=== PATIENT | female | born 1970 | race Caucasian/White ===

== ENCOUNTER → 2016-09-10 | Outpatient (CLI) | payer BC ==
--- NOTE | 2016-09-10 13:34 | ECHOF ---
Referral Reason:R07.89 Atypical chest pain MEASUREMENTS -------- HEIGHT: 157.5 cm WEIGHT: 63.5 kg BP: 128/78 RVIDd: 3.0 cm (< 3.3) IVSd: 1.0 cm (0.6 - 1.1) LVIDd: 4.0 cm (3.9 - 5.3) LVPWd: 1.0 cm (0.6 - 1.1) IVSs: 1.5 cm LVIDs: 2.8 cm LVPWs: 1.3 cm LAESV Index (A-L): 16.56 ml/m Ao Diam: 2.7 cm (2.0 - 3.7) AV Cusp: 1.5 cm (1.5 - 2.6) LA Diam: 2.3 cm (2.7 - 3.8) MV EXCURSION: 12.364 mm (> 18.000) MV EF SLOPE: 102 mm/s (70 - 150) EPSS: 0.5 cm MV E Leon: 0.61 m/s MV DecT: 150 ms MV A Leon: 0.67 m/s MV E/A Ratio: 0.90 RAP: 5.00 mmHg RVSP: 9.49 mmHg FINDINGS -------- Sinus rhythm. This was a technically adequate study. Left ventricular wall thickness is normal. Overall left ventricular systolic function is normal with, an EF between 55 - 60 %. The right ventricle is normal in size and function. Normal LA size by volume 22+/-6 ml/m2. The right atrium is normal in size. The aortic valve is trileaflet, and appears structurally normal. No aortic stenosis or regurgitation. The mitral valve leaflets are mildly thickened. There is trace mitral regurgitation. Trace tricuspid regurgitation present. There is no evidence of pulmonary hypertension. The right ventricular systolic pressure, as measured by Doppler, is 9.49mmHg. The pulmonic valve is normal. The aortic root size is normal. There is no pericardial effusion. CONCLUSIONS -------- 1. Sinus rhythm. 2. Overall left ventricular systolic function is normal with, an EF between 55 - 60 %. 3. The mitral valve leaflets are mildly thickened. 4. There is trace mitral regurgitation. 5. Trace tricuspid regurgitation present. 6. There is no evidence of pulmonary hypertension. 7. The right ventricular systolic pressure, as measured by Doppler, is 9.49mmHg. 8. The aortic root size is normal. 9. There is no pericardial effusion. KITCHEN OPERATOR: Jessie Nielsen RDCS
== END | disposition home or self-care (01) ==
LOC: RADECHMAIN 11:33
PROVIDERS: ATTEND Internal Medicine
DX: I08.1 Rheumatic disorders of both mitral and tricuspid valves (principal)
CPT/HCPCS: 93306

== ENCOUNTER 2016-12-30 17:04 | Emergency (ER) | payer BC ==
--- NOTE | 2016-12-30 18:59 | ED ---
General Adult HPI - General Chief complaint: Extremity Injury, Lower Stated complaint: Poss blood clot in calf Time Seen by Provider: 12/30/16 18:41 Source: patient, RN notes reviewed Mode of arrival: ambulatory Limitations: no limitations - History of Present Illness Initial comments: Patient 46-year-old female who presents emergency room status post left knee surgery 2 weeks, who presents emergency room today with a chief complaint of left calf pain. Does not that she was at physical therapy and advised come here to the emergency room to rule out DVT. Patient does not that it's been sore over the last few days. States worse with palpation. She denies any other complaints associated symptoms. Denies any history of DVT. States she has been taking daily aspirin. Patient denies any recent fever, chills, shortness of breath, chest pain, back pain, abdominal pain, nausea or vomiting, numbness or tingling, dysuria or hematuria, constipation or diarrhea, headaches or visual changes, or any other complaints. - Related Data Home Medications Medication Instructions Recorded Confirmed Aspirin EC [Ecotrin Low Dose] 81 mg PO DAILY 12/30/16 12/30/16 Dextroamphetamine/Amphetamine 15 mg PO QAM 12/30/16 12/30/16 [Adderall] Ibuprofen [Motrin] 800 mg PO BID PRN 12/30/16 12/30/16 Levothyroxine Sodium [Synthroid] 50 mcg PO DAILY 12/30/16 12/30/16 Pantoprazole Sodium [Protonix] 40 mg PO DAILY 12/30/16 12/30/16 Allergies Allergy/AdvReac Type Severity Reaction Status Date / Time Iodinated Contrast- Oral and Allergy Anaphylaxis Verified 12/30/16 17:17 IV Dye [Iodinated Contrast Media - IV Dye] shellfish derived [Shellfish] Allergy Anaphylaxis Verified 12/30/16 19:25 steroids AdvReac Rapid Uncoded 12/30/16 19:25 Heart Rate Review of Systems ROS Statement: Those systems with pertinent positive or pertinent negative responses have been documented in the HPI. ROS Other: All systems not noted in ROS Statement are negative. Past Medical History Additional Past Medical History / Comment(s): lupus History of Any Multi-Drug Resistant Organisms: None Reported Past Surgical History: Cholecystectomy, Orthopedic Surgery Past Psychological History: No Psychological Hx Reported Smoking Status: Current every day smoker Past Alcohol Use History: None Reported Past Drug Use History: None Reported General Exam - General Exam Comments Initial Comments: General: The patient is awake and alert, in no distress, and does not appear acutely ill. Neck: The neck is supple, there is no tenderness or JVD. Cardiovascular: There is a regular rate and rhythm. No murmur, rub or gallop is appreciated. Respiratory: Lungs are clear to auscultation, respirations are non-labored, breath sounds are equal. No wheezes, stridor, rales, or rhonchi. Musculoskeletal: Patient has normal appearance of the left leg no signs of swelling bruising or redness. Pulses equal bilaterally 2+. Mild tenderness with a Homans test. Sensations intact. Strength 5/5. Neurological: A&O x 3. CN II-XII intact, There are no obvious motor or sensory deficits. Coordination appears grossly intact. Speech is normal. Skin: Skin is warm and dry and no rashes or lesions are noted. Psychiatric: Normal mood and affect. Limitations: no limitations Course Vital Signs 12/30/16 17:15 Temperature 98.2 F Pulse Rate 88 Respiratory 18 Rate Blood Pressure 125/74 O2 Sat by Pulse 98 Oximetry Medical Decision Making - Medical Decision Making Patient is also negative for any evidence of DVT. Patient will be discharged home advise follow family doctor. Advised return if any other symptoms Disposition Clinical Impression: Leg pain Disposition: HOME SELF-CARE Condition: Good Instructions: Leg Cramps (ED) Additional Instructions: Please use medication as discussed. Please follow-up with family doctor in the next 2 days of symptoms have not improved. Please return to emergency room if the symptoms increase or worsen or for any other concerns. Referrals: Paolo Garcia MD [Primary Care Provider] - 1-2 days Time of Disposition: 20:16
--- NOTE | 2016-12-30 20:00 | US ---
EXAMINATION TYPE: US venous doppler duplex LE LT DATE OF EXAM: 12/30/2016 6:55 PM COMPARISON: NONE CLINICAL HISTORY: Pain. Left calf pain SIDE PERFORMED: Left TECHNIQUE: The lower extremity deep venous system is examined utilizing real time linear array sonog aashish with graded compression, doppler sonography and color-flow sonography. VESSELS IMAGED: External Iliac Vein (EIV) Common Femoral Vein Deep Femoral Vein Greater Saphenous Vein * Femoral Vein Popliteal Vein Small Saphenous Vein * Proximal Calf Veins (* superficial vessels) Left Leg: Negative for DVT No evidence of DVT left leg IMPRESSION: No evidence of deep venous thrombosis in the left leg.
[2016-12-30 20:38] VITALS: BP 144/87; PULSE 107; RESP 17; TEMP 97
== END 2016-12-30 20:33 | disposition home or self-care (01) ==
LOC: EC 17:04
DX: M79.605 Pain in left leg (principal); Z79.899 Other long term (current) drug therapy; Z98.890 Other specified postprocedural states; Z79.82 Long term (current) use of aspirin; Z88.8 Allergy status to other drugs, medicaments and biological substances; Z91.041 Radiographic dye allergy status; Z91.013 Allergy to seafood; F17.200 Nicotine dependence, unspecified, uncomplicated
CPT/HCPCS: 99283

== ENCOUNTER → 2017-08-24 | Outpatient (CLI) | payer BC ==
[2017-08-24 13:03] LABS: Basophils # (A) 0.1 k/uL (0-0.2); Basophils % (A) 1 %; Eosinophils # (A) 0.3 k/uL (0-0.7); Eosinophils % (A) 3 %; HCT 40.8 % (34.0-46.0); HGB 13.7 gm/dL (11.4-16.0); Lymphocytes # (A) 2.4 k/uL (1.0-4.8); Lymphocytes % (A) 25 %; MCH 30.3 pg (25.0-35.0); MCHC 33.5 g/dL (31.0-37.0); MCV 90.2 fL (80.0-100.0); Mean Platelet Volume 6.1; Monocytes # (A) 0.6 k/uL (0-1.0); Monocytes % (A) 6 %; Neutrophils # (A) 5.9 k/uL (1.3-7.7); Neutrophils % (A) 63 %; Platelet Count 443 k/uL (150-450); RBC 4.52 m/uL (3.80-5.40); WBC 9.4 k/uL (3.8-10.6)
[2017-08-24 13:29] LABS: ALT 25 U/L (9-52); AST 18 U/L (14-36); Albumin 4.1 g/dL (3.5-5.0); Alkaline Phosphatase 64 U/L (38-126); Anion Gap 11 mmol/L; Blood Urea Nitrogen 14 mg/dL (7-17); C Reactive Protein <5.0 mg/L (<10.0); Calcium 9.6 mg/dL (8.4-10.2); Carbon Dioxide 27 mmol/L (22-30); Chloride 104 mmol/L (98-107); Cholesterol 197 mg/dL (<200); Glucose 88 mg/dL (74-99); HDL Cholesterol 65 mg/dL (40-60); LDL Cholesterol,Calculated 118 mg/dL (0-99); Potassium 4.9 mmol/L (3.5-5.1); Sodium 142 mmol/L (137-145); Total Bilirubin 0.7 mg/dL (0.2-1.3); Total Protein 6.6 g/dL (6.3-8.2); Triglycerides 72 mg/dL (<150)
[2017-08-24 13:42] LABS: T4, Free (Free Thyroxine) 1.05 ng/dL (0.78-2.19)
[2017-08-24 13:59] LABS: Erythrocyte Sedimentation Rate 9 mm/hr (0-20)
[2017-08-24 20:06] LABS: Cyclic Citrullinated Pep IgG NEGATIVE (NEGATIVE)
[2017-08-25 11:05] LABS: ANA Pattern Speckled; ANA Pattern 2 Nucleolar
== END | disposition home or self-care (01) ==
LOC: LABWHC1 12:25
PROVIDERS: ATTEND Internal Medicine
DX: E03.9 Hypothyroidism, unspecified (principal); F90.9 Attention-deficit hyperactivity disorder, unspecified type; M12.9 Arthropathy, unspecified; Z13.6 Encounter for screening for cardiovascular disorders
CPT/HCPCS: 36415; 80053; 80061; 84439; 84443; 84481; 85025; 85652; 86038; 86039; 86140; 86200

== ENCOUNTER → 2018-01-28 | Outpatient (CLI) | payer BC ==
--- NOTE | 2018-01-29 05:49 | CT ---
EXAMINATION TYPE: CT brain wo con DATE OF EXAM: 01/28/2018 COMPARISON: 05/19/2013 HISTORY: Headache x1 week. CT DLP: 944.5 mGycm. Automated Exposure Control for Dose Reduction was Utilized. TECHNIQUE: CT scan of the head is performed without contrast. FINDINGS: Ventricles and sulci appear normal. There is no mass effect nor midline shift. There is no sign of intracranial hemorrhage. There is no evidence of cerebral edema. Calvarium is intact. IMPRESSION: Normal CT scan of the brain. No change.
== END | disposition home or self-care (01) ==
LOC: RADCTMAIN 17:46
PROVIDERS: ATTEND Internal Medicine
DX: R51 Headache (principal)
CPT/HCPCS: 70450

== ENCOUNTER → 2018-06-10 | Outpatient (CLI) | payer BC ==
--- NOTE | 2018-06-11 08:50 | MM ---
Reason for exam: screening (asymptomatic). Baseline mammogram. History: Patient is nulliparous. Physical Findings: Nurse did not find any significant physical abnormalities on exam. MG 3D Screening Mammo W/Cad Bilateral CC and MLO view(s) were taken. The breast tissue is heterogeneously dense. This may lower the sensitivity of mammography. There is no discrete abnormality. These results were verbally communicated with the patient and result sheet given to the patient on 06/10/18. ASSESSMENT: Negative, BI-RAD 1 RECOMMENDATION: Routine screening mammogram of both breasts in 1 year.
== END | disposition home or self-care (01) ==
LOC: RADMAMWWP 15:38
PROVIDERS: ATTEND Family Medicine
DX: Z12.31 Encounter for screening mammogram for malignant neoplasm of breast (principal)
CPT/HCPCS: 77063; 77067

== ENCOUNTER → 2019-06-15 | Outpatient (CLI) | payer OTHER ==
[2019-06-15 15:42] LABS: Basophils # (A) 0.1 k/uL (0-0.2); Basophils % (A) 1 %; Eosinophils # (A) 0.5 k/uL (0-0.7); Eosinophils % (A) 5 %; HCT 39.8 % (34.0-46.0); HGB 13.4 gm/dL (11.4-16.0); Lymphocytes # (A) 3.6 k/uL (1.0-4.8); Lymphocytes % (A) 37 %; MCHC 33.6 g/dL (31.0-37.0); MCV 92.2 fL (80.0-100.0); Mean Platelet Volume 6.5; Monocytes # (A) 0.7 k/uL (0-1.0); Monocytes % (A) 8 %; Neutrophils # (A) 4.6 k/uL (1.3-7.7); Neutrophils % (A) 47 %; Platelet Count 430 k/uL (150-450); RBC 4.32 m/uL (3.80-5.40); RDW 13.2 % (11.5-15.5); WBC 9.8 k/uL (3.8-10.6)
[2019-06-15 15:50] LABS: Potassium 4.2 mmol/L (3.5-5.1)
== END | disposition home or self-care (01) ==
LOC: LABWHC1 15:00
PROVIDERS: ATTEND Orthopaedic Surgery
DX: Z01.812 Encounter for preprocedural laboratory examination (principal); M23.92 Unspecified internal derangement of left knee
CPT/HCPCS: 36415; 80051; 85025

== ENCOUNTER → 2019-06-21 | Outpatient (CLI) | payer OTHER ==
--- NOTE | 2019-06-21 14:26 | MR ---
EXAMINATION TYPE: MR brain and iac wo/w con DATE OF EXAM: 06/21/2019 COMPARISON: Correlation CT 01/28/2018 HISTORY: 48-year-old female Dizziness and giddiness. Technologist reports left ear issues. TECHNIQUE: Multiplanar, multisequence images of the brain and brainstem were acquired before and aft er administration of 6 mL IV Gadavist. Diffusion weighted imaging was performed. Additional coned-d own sequences through the internal auditory canals and posterior cranial fossa before and after IV co ntrast administration. FINDINGS: Diffusion weighted images demonstrate no evidence of an acute ischemic lesion in the brain. T2/FLAIR weighted sequences show minimal scattered burden of bright white matter change with approxim ately 5 punctate foci in the subcortical region of each side. 1.2 x 1.0 x 0.7 cm cyst of the medial gland. Otherwise, midline structures demonstrate normal morphol ogy. The craniocervical junction is normal. Brain volume is age appropriate. The ventricles are of normal caliber. There is no evidence of an acute intracranial hemorrhage, infarct, mass, mass-effect or an extra-axia l fluid collection. There is no cerebellopontine angle mass. The internal auditory canals are symmetric. Brainstem and skull base abnormalities are not seen. Post contrast images demonstrate no evidence of pathologic enhancement in the posterior cranial [place] a or the internal auditory canals. Dural venous sinuses are patent. Prominent arachnoid granulation r ight transverse sinus. There is no abnormal enhancement of the labyrinths. Trace mucosal thickening ethmoid air cells. Globes are intact. Nonenhancing 7 mm cyst along the left adenoid soft tissues, likely mucosal retention cyst. IMPRESSION: 1. No acute intracranial abnormality seen. Scattered foci of punctate bright white matter change with minimal overall burden is nonspecific and could relate to very early changes of chronic small vessel ischemic disease. Chronic migraines are also consideration. Demyelinating disease considered less li saqib given the overall appearance. 2. Unremarkable acoustic MRI. 3. 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
== END | disposition home or self-care (01) ==
LOC: RADMRIMAIN 11:48
PROVIDERS: ATTEND Internal Medicine
DX: R90.89 Other abnormal findings on diagnostic imaging of central nervous system (principal)
CPT/HCPCS: 70553; A9585

== ENCOUNTER 2019-06-23 09:16 | Day surgery (SDC) | payer OTHER ==
[2019-06-21 10:07] VITALS: BMI 23.8
--- NOTE | 2019-06-22 14:13 | HP ---
HISTORY AND PHYSICAL DATE OF SURGERY: 06/23/2027 Padmini Noble is a 48-year-old patient seen with progressive left knee pain. We discussed options for treatment. She elected to proceed with arthroscopy. Consent was obtained. PAST MEDICAL HISTORY: Hypothyroidism. PAST SURGICAL HISTORY: Cholecystectomy, left knee arthroscopy. MEDICATIONS: Protonix, levothyroxine. ALLERGIES: Are IV DYE and STEROIDS. SOCIAL HISTORY: Smokes 1 pack of cigarettes daily. PHYSICAL EVALUATION OF THE LEFT KNEE: Range of motion is 0-130. Tenderness along the medial and lateral joint lines. Positive medial Milind's. Positive lateral Milind's. Ligaments are stable. Hip rotation is without pain. Distal neurovascular exam is intact. RADIOGRAPHS OF THE LEFT KNEE: Revealed moderate medial and lateral compartment osteoarthritis. IMPRESSION: 1. Internal derangement, left knee with meniscal tear. 2. Left knee osteoarthritis. 3. Hypothyroidism. PLAN: Left knee arthroscopy with partial meniscectomy, partial synovectomy and debridement. MMODL / IJN: [id number] /
[~2019-06-23 09:16] MED LIST: DEXAMETHASONE SOD PHOSPHATE 10 MG/ML 1 ML VIAL IV ONE; LACTATED RINGERS 1,000 ML IV SCH; LIDOCAINE 1% 20 ML VIAL (10MG/ML) FOR IV START INTRADERMA PRN; MIDAZOLAM 2 MG/2 ML VIAL IV PRN; fentaNYL (PF) 50 MCG/ML 2 ML AMP IV PRN
[2019-06-23 09:42] VITALS: TEMP 98.3
[2019-06-23] MEDS ORDERED: ONDANSETRON 4 MG/2 ML VIAL IVP ONE (09:45)
[2019-06-23] MEDS ORDERED: SCOPOLAMINE 1.5MG/72HR PATCH TRANSDERM ONE (09:46)
[2019-06-23] MEDS ORDERED: LIDOCAINE 1% INJ 10MG/ML (20 ML MDV) ONE (10:39)
[2019-06-23] MEDS ORDERED: PROPOFOL 10 MG/ML 20 ML VIAL IV ONE (10:39)
[2019-06-23] MEDS ORDERED: fentaNYL (PF) 50 MCG/ML 2 ML AMP ONE (10:39)
[2019-06-23] MEDS ORDERED: MIDAZOLAM 2 MG/2 ML VIAL ONE (10:39)
[2019-06-23] MEDS ORDERED: KETOROLAC 30 MG/ML 1 ML VIAL ONE (10:39)
[2019-06-23] MEDS ORDERED: BUPIVACAINE (PF) 0.25% 30 ML VIAL SQ ONE (11:06)
[2019-06-23] MEDS ORDERED: LACTATED RINGERS 1,000 ML IV ONE ×5 (11:23→12:00)
--- NOTE | 2019-06-23 11:27 | P.OP ---
Date of Procedure: 06/23/19 Preoperative Diagnosis: Internal derangement left knee Postoperative Diagnosis: 1. Tear lateral meniscus left knee 2. Grade 2/3 chondromalacia medial femoral condyle left knee 3. Reactive synovitis medial, lateral and suprapatellar compartments left knee Procedure(s) Performed: 1. Arthroscopic partial lateral meniscectomy left knee 2. Arthroscopic chondroplasty medial femoral condyle left knee 3. Arthroscopic partial synovectomy medial, lateral and suprapatellar compartments left knee Anesthesia: JUNAIDA, local Surgeon: Jerrod Jarivs Estimated Blood Loss (ml): 5 Pathology: none sent Condition: stable Disposition: PACU Indications for Procedure: 48-year-old patient seen with progressive left knee pain. After having treatment options discussed, she elected to proceed with arthroscopy. Operative Findings: See description of procedure Description of Procedure: Patient was taken to the operative suite. Patient underwent a general anesthetic by the department of anesthesia. Patient was given preoperative ant ibiotics. The left lower extremity was placed in a well-padded arthroscopic leg lazar. The left leg was prepped and draped in the normal sterile orthopedic fashion. A lateral parapatellar and suprapatellar incision was made. Trochars were inserted. Arthroscopy was initiated. Suprapatellar pouch revealed diffuse thick reactive synovitis. The patellofemoral joint appeared to articulate congr uently. There as grade 1 chondromalacia along the central area of the patella with no significant osteochondral tears present. The scope was guided into the medial gutter. There were no loose bodies. There was no plica. The scope was then guided into the medial compartment. A medial parapatellar incision was made. Trocar inserted followed by probe. There was some mild fraying posterior medial meniscus. There was an area of grade 2/3 chondromalacia medial femoral condyle with diffuse osteochondral flap tears present. There was thick reactive synovitis anteriorly. I performed a chondroplasty of the medial femoral condyle down to stable tissue. I debrided that mild air fraying posterior medial meniscus. I performed a partial synovectomy decompressing reactive synovitis. The residual osteochondral surface of the medial femoral condyle was stable. There was good decompression of the synovitis. Scope and probe were then guided into the intercondylar notch. Cruciates were identified, probed and found to be stable. The scope and probe were then guided into lateral compartment. There was a complex tear involving the anterior horn of the lateral meniscus which is eccentric to the midbody area. There was thick reactive synovitis anteriorly. There were grade 1 chondromalacia changes lateral compartment. I performed a partial lateral meniscectomy getting down to stable meniscal tissue. I performed a partial synovectomy decompressing reactive synovitis. The residual meniscus was probed and found to be stable. There was good decompression of the synovitis. The scope was in guided back into the suprapatellar compartment. I introduced a motorized shaver into the suprapatellar compartment. I performed a partial synovectomy. Shaver was removed. I took one more look on the entire knee, no residual debris. Instruments were now removed from the joint. The joint was infiltrated with .25% Marcaine. Steri-Strips were applied to the portal sites. Sterile dressings were applied. The patient was placed into a GABBIE hose. No tourniquet was utilized. The patient was awakened, transferred to a bed and taken to recovery stable satisfactory condition.
[2019-06-23] MEDS: HYDROmorphone 1 MG/ML 1 ML SYRINGE IVP ONE ×2 (11:30→11:42)
[2019-06-23] MEDS ORDERED: ALBUTEROL NEBULIZED 2.5 MG/3 ML INHALATION ONE (12:42)
[2019-06-23 13:10] VITALS: RESP 18
[2019-06-23] MEDS ORDERED: diphenhydrAMINE 50 MG/ML 1 ML VIAL IVP PRN (13:27)
[2019-06-23] MEDS ORDERED: HYDROcodone/APAP 5-325MG 1 EACH TAB PO ONE (13:37)
[2019-06-23 14:57] VITALS: BP 98/64; PULSE 60
== END 2019-06-23 15:01 | disposition home or self-care (01) ==
LOC: OR 09:16
PROVIDERS: ATTEND Orthopaedic Surgery
DX: S83.272A Complex tear of lateral meniscus, current injury, left knee, initial encounter (principal); M94.262 Chondromalacia, left knee; M65.9 Synovitis and tenosynovitis, unspecified; M17.12 Unilateral primary osteoarthritis, left knee; F17.210 Nicotine dependence, cigarettes, uncomplicated; E03.9 Hypothyroidism, unspecified; K21.9 Gastro-esophageal reflux disease without esophagitis; Z90.49 Acquired absence of other specified parts of digestive tract; Z98.890 Other specified postprocedural states; Z79.890 Hormone replacement therapy; Z79.899 Other long term (current) drug therapy; Z91.041 Radiographic dye allergy status; Z88.8 Allergy status to other drugs, medicaments and biological substances; Z91.013 Allergy to seafood; Z79.1 Long term (current) use of non-steroidal anti-inflammatories (NSAID); X58.XXXA Exposure to other specified factors, initial encounter
CPT/HCPCS: 93005; 81025; 29881; J2250; J1200; J1100; J2405; J0690; J2001; J3010; J1885; J1170; J2704

== ENCOUNTER → 2019-10-25 | Outpatient (CLI) | payer OTHER ==
[2019-10-25 19:57] LABS: Estradiol 138.8 pg/mL; Follicle Stimulating Hormone 2.7 mIU/mL; Luteinizing Hormone 1.6 mIU/mL
[2019-10-25 20:14] LABS: Folate, Serum 14.7 ng/mL
[2019-10-25 21:06] LABS: Progesterone 4.9 ng/mL
[2019-10-25 21:48] LABS: Rheumatoid Factor, Qnt 5 IU/mL (0-15)
[2019-10-25 22:13] LABS: Anti-DNA, DS unit <1.0 IU/mL; DNA Double-Stranded NEGATIVE (NEGATIVE)
[2019-10-26 11:54] LABS: ANA Pattern Speckled
== END | disposition home or self-care (01) ==
LOC: LABWHC1 12:41
PROVIDERS: ATTEND Psychiatry & Neurology Neurology
DX: R79.89 Other specified abnormal findings of blood chemistry (principal); R26.81 Unsteadiness on feet
CPT/HCPCS: 36415; 82607; 82670; 82746; 83001; 83002; 84144; 84403; 84443; 86038; 86039; 86225; 86431; 86618

== ENCOUNTER → 2019-11-02 | Outpatient (CLI) | payer OTHER ==
--- NOTE | 2019-11-03 02:58 | MR ---
EXAMINATION TYPE: MR knee RT wo con DATE OF EXAM: 11/02/2019 COMPARISON: None HISTORY: Right Knee Pain, Trhu entire knee. Chronic Multiplanar multiecho imaging of the right knee was performed without contrast. FINDINGS: The anterior and posterior cruciate ligaments are intact. There is small area of increased signal on the inferior surface of the anterior horn of the lateral meniscus. The other menisci appear fairly no rmal. Patella is intact. The collateral ligaments are intact. I see no bony destructive process. Join t spaces are fairly normal. There is no evidence of joint effusion. IMPRESSION: Small tear of the anterior horn of the lateral meniscus. No evidence of ligamentous tear. No signific ant joint fluid.
== END | disposition home or self-care (01) ==
LOC: RADMRIMAIN 16:28
PROVIDERS: ATTEND Orthopaedic Surgery
DX: S83.281A Other tear of lateral meniscus, current injury, right knee, initial encounter (principal)

== ENCOUNTER → 2019-12-05 | Outpatient (CLI) | payer OTHER ==
[2019-12-05 14:53] LABS: Potassium 4.6 mmol/L (3.5-5.1)
[2019-12-05 14:55] LABS: Basophils # (A) 0.1 k/uL (0-0.2); Basophils % (A) 1 %; Eosinophils # (A) 0.4 k/uL (0-0.7); Eosinophils % (A) 4 %; HCT 41.9 % (34.0-46.0); HGB 13.5 gm/dL (11.4-16.0); Lymphocytes # (A) 2.5 k/uL (1.0-4.8); Lymphocytes % (A) 25 %; MCH 30.2 pg (25.0-35.0); MCHC 32.2 g/dL (31.0-37.0); MCV 93.8 fL (80.0-100.0); Mean Platelet Volume 6.6; Monocytes # (A) 0.8 k/uL (0-1.0); Monocytes % (A) 8 %; Neutrophils % (A) 61 %; Platelet Count 420 k/uL (150-450); RBC 4.47 m/uL (3.80-5.40); WBC 9.9 k/uL (3.8-10.6)
== END ==
LOC: LABPAT 14:11
PROVIDERS: ATTEND Orthopaedic Surgery
DX: Z01.818 Encounter for other preprocedural examination (principal); M23.91 Unspecified internal derangement of right knee
CPT/HCPCS: 36415; 80051; 85025

== ENCOUNTER 2019-12-07 10:04 | Day surgery (SDC) | payer OTHER ==
[2019-12-01 12:09] VITALS: BMI 23.8
--- NOTE | 2019-12-06 15:28 | HP ---
HISTORY AND PHYSICAL DATE OF SURGERY: 12/07/2019 Padmini Noble is a 49-year-old patient seen with progressive right knee pain. We discussed options. She elected to proceed with arthroscopy. Consent was obtained. PAST MEDICAL HISTORY: Hypothyroidism, gastroesophageal reflux disease. PAST SURGICAL HISTORY: Cholecystectomy. DAILY MEDICATIONS: Protonix, Adderall, levothyroxine, ibuprofen. ALLERGIES: IV DYE AND STEROIDS. SOCIAL HISTORY: She smokes one pack of cigarettes daily. PHYSICAL EVALUATION OF RIGHT KNEE: Range of motion is zero to 130. Tenderness along the medial and lateral joint lines. Positive medial Milind's. Positive lateral Milind's. Patellar crepitus. Ligaments stable. Hip rotation without pain. RADIOGRAPHS: Right knee radiographs reveal some mild osteoarthritic changes. MRI of the right knee revealed lateral meniscal tear. IMPRESSION: 1. Internal derangement of right knee with lateral meniscal tear. 2. Hypothyroidism. 3. Gastroesophageal reflux disease. 4. Tobacco use. PLAN: Right knee arthroscopy with partial lateral meniscectomy, partial synovectomy and debridement. MMODL / IJN: [id number] /
[~2019-12-07 10:04] MED LIST changes: +HYDROmorphone 0.5 MG/0.5 ML SYRINGE IVP PRN; -LIDOCAINE 1% 20 ML VIAL (10MG/ML) FOR IV START INTRADERMA PRN; -MIDAZOLAM 2 MG/2 ML VIAL IV PRN; +ONDANSETRON 4 MG/2 ML VIAL IVP ONE; -fentaNYL (PF) 50 MCG/ML 2 ML AMP IV PRN
[2019-12-07] MEDS ORDERED: ONDANSETRON 4 MG/2 ML VIAL ONE (10:22)
[2019-12-07] MEDS ORDERED: SCOPOLAMINE 1.5MG/72HR PATCH TRANSDERM ONE (10:26)
[2019-12-07 10:33] LABS: Glucose,Whole Blood 93 mg/dL (75-99)
[2019-12-07] MEDS ORDERED: LIDOCAINE 1% INJ 10MG/ML (20 ML MDV) ONE (11:30)
[2019-12-07] MEDS ORDERED: GLYCOPYRROLATE 0.2 MG/ML 2 ML VIAL ONE (11:30)
[2019-12-07] MEDS ORDERED: SUCCINYLCHOLINE CHLORIDE 100 MG/5 ML SYR IV ONE (11:30)
[2019-12-07] MEDS ORDERED: fentaNYL (PF) 50 MCG/ML 2 ML AMP ONE (11:30)
[2019-12-07] MEDS ORDERED: MIDAZOLAM 2 MG/2 ML VIAL ONE (11:30)
[2019-12-07] MEDS ORDERED: ePHEDrine SULFATE/0.9% NACL/PF 50 MG/5 ML SYRINGE IV ONE (11:30)
[2019-12-07] MEDS ORDERED: PROPOFOL 10 MG/ML 20 ML VIAL IV ONE (11:30)
[2019-12-07] MEDS ORDERED: BUPIVACAINE (PF) 0.25% 30 ML VIAL SQ ONE (11:55)
--- NOTE | 2019-12-07 12:29 | P.OP ---
Date of Procedure: 12/07/19 Preoperative Diagnosis: Internal derangement right knee Postoperative Diagnosis: 1. Tear lateral meniscus right knee 2. Reactive synovitis medial, lateral and suprapatellar compartments right knee Procedure(s) Performed: 1. Arthroscopic partial lateral meniscectomy right knee 2. Arthroscopic partial synovectomy medial, lateral and suprapatellar compartments right knee Anesthesia: JOSE, local Surgeon: Jerrod Jarvis Estimated Blood Loss (ml): 7 Pathology: none sent Condition: stable Disposition: PACU Indications for Procedure: 49-year-old patient seen with progressive right knee pain. After having treatment options discussed, she elected to proceed with arthroscopy. Operative Findings: see description of procedure Description of Procedure: Patient was taken to the operative suite. Patient underwent a general anesthetic by the department of anesthesia. Patient was given preoperative antibiotics. The right lower extremity was placed in a well-padded arthroscopic leg lazar. The right leg was prepped and draped in the normal sterile orthopedic fashion. A lateral parapatellar and suprapatellar incision was made. Trochars were inserted. Arthroscopy was initiated. Suprapatellar pouch revealed diffuse thick reactive synovitis. The patellofemoral joint appeared to articulate congruently. There was grade 1 chondromalacia with no osteochondral tears present. The scope was guided into the medial gutter. No loose bodies or plica were identified. The scope was then guided into the medial compartment. A medial parapatellar incision was made. Trocar inserted followed by probe. The medial meniscus was probed and found to be stable. There was no significant chondromalacia in the medial compartment. There was thick reactive synovitis anteriorly. I performed a partial synovectomy decompressing the thick reactive synovitis. There was good decompression of synovitis. Scope and probe were then guided into the intercondylar notch. Cruciates were identified, probed and found to be stable. The scope and probe were then guided into lateral compartment. There was a radial tear involving the posterior horn lateral meniscus. There were grade 1/2 chondromalacia involving the lateral femoral condyle. There were no osteochondral tears present. There was thick reactive synovitis anteriorly. I performed a partial lateral meniscectomy. I performed a partial synovectomy. The residual meniscus was found to be stable. There was good decompression of synovitis. The scope was in guided back into the suprapatellar compartment. I introduced a motorized shaver into the suprapatellar compartment. I debrided some piecemeal from its of meniscus I encountered. I performed a partial synovectomy. The shaver was removed. There was good decompression of the synovitis. I took one more look on the entire knee, no residual debris. Instruments were now removed from the joint. The joint was infiltrated with .25% Marcaine. Steri-Strips were applied to the portal sites. Sterile dressings were applied. The patient was placed into a GABBIE hose. No tourniquet was utilized. The patient was awakened, transferred to a bed and taken to recovery stable satisfactory condition.
[2019-12-07] MEDS ORDERED: diphenhydrAMINE 50 MG/ML 1 ML VIAL IVP ONE (12:31)
[2019-12-07 12:37] VITALS: TEMP 97.4
[2019-12-07 12:42] VITALS: RESP 16
[2019-12-07] MEDS ORDERED: PROMETHAZINE INJ 25 MG/ML 1 ML VIAL IVPB ONE (13:08)
[2019-12-07] MEDS ORDERED: HYDROcodone/APAP 5-325MG 1 EACH TAB ONE (14:05)
[2019-12-07 14:31] VITALS: BP 132/79; PULSE 52
[2019-12-07] MEDS ORDERED: HYDROcodone/APAP 5-325MG 1 EACH TAB PO ONE (14:31)
== END 2019-12-07 15:02 | disposition home or self-care (01) ==
LOC: OR 10:04
PROVIDERS: ATTEND Orthopaedic Surgery
DX: S83.281A Other tear of lateral meniscus, current injury, right knee, initial encounter (principal); X58.XXXA Exposure to other specified factors, initial encounter; M65.861 Other synovitis and tenosynovitis, right lower leg; E03.9 Hypothyroidism, unspecified; K21.9 Gastro-esophageal reflux disease without esophagitis; F17.210 Nicotine dependence, cigarettes, uncomplicated; Z90.49 Acquired absence of other specified parts of digestive tract; F41.9 Anxiety disorder, unspecified; M32.9 Systemic lupus erythematosus, unspecified; E23.6 Other disorders of pituitary gland; Z79.1 Long term (current) use of non-steroidal anti-inflammatories (NSAID); Z79.890 Hormone replacement therapy; Z79.891 Long term (current) use of opiate analgesic; Z79.899 Other long term (current) drug therapy; Z88.8 Allergy status to other drugs, medicaments and biological substances; Z91.041 Radiographic dye allergy status; Z91.013 Allergy to seafood
CPT/HCPCS: 81025; 29881; 29876; J2250; J1200; J2550; J2405; J0690; J2001; J3010; J0330; J2704

== ENCOUNTER → 2019-12-15 | Outpatient (CLI) | payer OTHER ==
--- NOTE | 2019-12-15 14:46 | US ---
EXAMINATION TYPE: US venous doppler duplex LE RT DATE OF EXAM: 12/15/2019 2:33 PM COMPARISON: NONE CLINICAL HISTORY: M79.661 swelling in right lower limb R22.41 pain. Right leg pain and swelling post right knee surgery SIDE PERFORMED: Right TECHNIQUE: The lower extremity deep venous system is examined utilizing real time linear array sonog aashish with graded compression, doppler sonography and color-flow sonography. VESSELS IMAGED: External Iliac Vein (EIV) Common Femoral Vein Deep Femoral Vein Greater Saphenous Vein * Femoral Vein Popliteal Vein Small Saphenous Vein * Proximal Calf Veins (* superficial vessels) Right Leg: Negative for DVT Results called to Pau at 's office at time of exam IMPRESSION: 1. No diagnostic evidence of DVT.
== END | disposition home or self-care (01) ==
LOC: RADUSWWP 14:18
PROVIDERS: ATTEND Orthopaedic Surgery
DX: R22.41 Localized swelling, mass and lump, right lower limb (principal); Z91.041 Radiographic dye allergy status; Z88.8 Allergy status to other drugs, medicaments and biological substances

== ENCOUNTER → 2020-06-27 | Outpatient (CLI) | payer OTHER ==
--- NOTE | 2020-06-28 03:53 | MR ---
EXAMINATION TYPE: MR brain wo/w con DATE OF EXAM: 06/27/2020 COMPARISON: 06/21/2019 HISTORY: Pineal gland cyst. CONTRAST: Standard multiplanar, multisequence MRI departmental protocol utilizing 6 mL intravenous Gadavist paulie olinium contrast. The diffusion images show no evidence of an acute cortical infarct. Ventricles have normal size. Ther e is no mass effect nor midline shift. There is no sign of intracranial hemorrhage. Underwood-white matter structures have fairly normal signal pattern. There is no evidence of cerebral edema. There are a fe w scattered white matter high signal foci that measure up to 3 mm. Total number is approximately 5 an d these are at the underwood-white matter junction. There is normal enhancement of the venous sinuses. There is 9 mm rounded fluid signal area at the pin eal gland consistent with pineal cyst unchanged. The brainstem is intact. I see no pathologic enhancement. Optic chiasm appears normal. Pituitary stalk is in the midline. Sella turcica is normal. IMPRESSION: Pineal cyst unchanged. No adverse change compared to old exam. No acute intracranial abnormality. The re are a few tiny scattered white matter high signal foci in both cerebral hemispheres not changed co mpared to old exam.
== END | disposition home or self-care (01) ==
LOC: RADMRIMAIN 18:45
PROVIDERS: ATTEND Psychiatry & Neurology Neurology
DX: G93.0 Cerebral cysts (principal); R90.89 Other abnormal findings on diagnostic imaging of central nervous system
CPT/HCPCS: 70553; A9585

== ENCOUNTER 2020-08-29 18:02 | Observation (INO) | payer BC, OTHER ==
[2020-08-29 18:57] LABS: Basophils # (A) 0.1 k/uL (0-0.2); Basophils % (A) 0 %; Eosinophils # (A) 0.5 k/uL (0-0.7); Eosinophils % (A) 3 %; HCT 40.5 % (34.0-46.0); HGB 13.6 gm/dL (11.4-16.0); Lymphocytes # (A) 2.6 k/uL (1.0-4.8); Lymphocytes % (A) 16 %; MCH 30.5 pg (25.0-35.0); MCHC 33.7 g/dL (31.0-37.0); MCV 90.6 fL (80.0-100.0); Mean Platelet Volume 6.4; Monocytes # (A) 0.9 k/uL (0-1.0); Monocytes % (A) 6 %; Neutrophils # (A) 11.6 k/uL (1.3-7.7); Neutrophils % (A) 74 %; Platelet Count 427 k/uL (150-450); RBC 4.47 m/uL (3.80-5.40); RDW 13.5 % (11.5-15.5); WBC 15.8 k/uL (3.8-10.6)
[2020-08-29 19:10] LABS: ALT 17 U/L (4-34); AST 22 U/L (14-36); African American GFR (CKD) >90 (>60 ml/min/1.73 sqM); Albumin 4.5 g/dL (3.5-5.0); Alkaline Phosphatase 106 U/L (38-126); Anion Gap 7 mmol/L; Blood Urea Nitrogen 12 mg/dL (7-17); Calcium 9.8 mg/dL (8.4-10.2); Carbon Dioxide 29 mmol/L (22-30); Chloride 106 mmol/L (98-107); Glucose 127 mg/dL (74-99); Magnesium 1.8 mg/dL (1.6-2.3); Non-African American GFR(CKD) >90 (>60 ml/min/1.73 sqM); Potassium 3.3 mmol/L (3.5-5.1); Sodium 142 mmol/L (137-145); Total Bilirubin 0.6 mg/dL (0.2-1.3); Total Protein 7.4 g/dL (6.3-8.2)
[2020-08-29 19:15] LABS: INR 0.9 (<1.2); Partial Thromboplastin Time 25.9 sec (22.0-30.0); Prothrombin Time 9.5 sec (9.0-12.0)
[2020-08-29] MEDS ORDERED: POTASSIUM CHLORIDE ER 20 MEQ TAB.ER PO STA (19:21)
--- NOTE | 2020-08-29 19:22 | ED ---
Dizziness HPI - General Chief Complaint: Dizziness Stated Complaint: Chest Pain, Dizziness Time Seen by Provider: 08/29/20 18:28 Source: patient Mode of arrival: ambulatory Limitations: no limitations - History of Present Illness Initial Comments: 49-year-old female presenting for multiple complaints. Patient states that she has had dizziness and feeling off balance for the past year she has had a MRI that showed some lesions concerning for MS. Patient states she was specifically lumbar puncture outpatient was too scared at the time. Patient states that for the past week she has had increasing feeling off balance almost drunk and seeing double. Patient denies any eye pain and she states she is occasional eye blurriness. She states these symptoms have occurred throughout the year but they've been more persistent for the last week. She denies any weakness of extremities or sensation deficits she has speech changes patient supervision loss. Patient states she also can't get to the bottom of why she is having chest pain for the past year. Patient states she has seen Dr. Sawyer on multiple occasions and has had numerous stress testing outpatient and she states that they can't figure out why but she has chest pain every single day. Patient describes as a pressure. She denies any jaw pain arm pain, diaphoresis or dyspnea. Denies hemoptysis, leg swleling, calf pain, cancer, recent injuries, history of DVT or pulmonary embolism. Upon arrival patient appears well nontoxic distress - Related Data Home Medications Medication Instructions Recorded Confirmed Dextroamphetamine/Amphetamine 15 mg PO BID 12/30/16 08/29/20 [Adderall] Levothyroxine Sodium [Synthroid] 50 mcg PO DAILY 12/30/16 08/29/20 Pantoprazole Sodium [Protonix] 40 mg PO BID 12/30/16 08/29/20 Escitalopram [Lexapro] 10 mg PO HS 12/01/19 08/29/20 Ascorbic Acid [Vitamin C] 1,000 mg PO DAILY 08/29/20 08/29/20 Cholecalciferol [Vitamin D3 (25 25 mcg PO DAILY 08/29/20 08/29/20 Mcg = 1000 Iu)] Metoprolol Tartrate [Lopressor] 25 mg PO HS 08/29/20 08/29/20 Zinc 50 mg PO DAILY 08/29/20 08/29/20 amLODIPine [Norvasc] 5 mg PO HS 08/29/20 08/29/20 Allergies Allergy/AdvReac Type Severity Reaction Status Date / Time Iodinated Contrast Media Allergy Anaphylaxis Verified 08/29/20 19:21 [Iodinated Contrast Media - IV Dye] shellfish derived [Shellfish] Allergy Anaphylaxis Verified 08/29/20 19:21 steroids AdvReac Rapid Uncoded 08/29/20 19:21 Heart Rate Review of Systems ROS Statement: Those systems with pertinent positive or pertinent negative responses have been documented in the HPI. ROS Other: All systems not noted in ROS Statement are negative. Past Medical History Past Medical History: GERD/Reflux, Hypertension, Thyroid Disorder Additional Past Medical History / Comment(s): lupus. 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 History of Any Multi-Drug Resistant Organisms: None Reported Past Surgical History: Cholecystectomy, Orthopedic Surgery Past Anesthesia/Blood Transfusion Reactions: Motion Sickness, Postoperative Nausea & Vomiting (PONV) Past Psychological History: Anxiety Smoking Status: Current every day smoker Past Alcohol Use History: None Reported Past Drug Use History: None Reported - Past Family History Mother Family Medical History: Cancer Additional Family Medical History / Comment(s): lung cancer 2006 Father Family Medical History: Cancer Additional Family Medical History / Comment(s): skin cancer General Exam - General Exam Comments Initial Comments: General: The patient is awake and alert, in no distress, and does not appear acutely ill. Eye: +3 mm pupils are equal, round and reactive to light, extra-ocular movements are intact. No APD No nystagmus. There is normal conjunctiva bilaterally. No signs of icterus. Ears, nose, mouth and throat: There are moist mucous membranes and no oral lesions. Neck: The neck is supple, there is no tenderness or JVD. Cardiovascular: There is a regular rate and rhythm. No murmur, rub or gallop is appreciated. Respiratory: Lungs are clear to auscultation, respirations are non-labored, breath sounds are equal. No wheezes, stridor, rales, or rhonchi. Musculoskeletal: Normal ROM, no tenderness. Strength 5/5. Sensation intact. Pulses equal bilaterally 2+. Neurological: A&O x 3. CN II-XII intact, memory intact to immediately, intermediate and advertising account manager recall. Able to follow simple verbal. Able to name a common object (pen). High quality, labial (pa) and lingual (la) speech. Low quality posterior pharynx/larynx (ga) voice sounds. Able to express general knowledge (days in a week). No hemineglect or inattention noted. Finger agnosia (-) and spatially oriented (identified L index finger touched R shoulder with L index finger). Light touch and temperature sensation present over the face, chest, abdomen, back, UE bilaterally, and LE bilaterally. Able to localize point during point localization b/l and extinction. No visible bulk atrophy, hypertrophy, fasciculations, or myoclonus of the UE or LE b/l. Full PROM in UE and LE b/l. Bilateral muscle strength 5/5 for the following muscles: deltoid, biceps, triceps, brachioradialis, wrist extensors/flexor, hip flexor, hip abductors/adductors, hamstrings, quadriceps, feet dorsiflexors/plantar flexors. Finger to nose finger to the examiners finger-she slighlty overshoot, and heel to hobbs coordinated and accurate b/l. Coordinated and even demonstration of hand flip, finger to thumb, and toe tap b/l. Gait is slightly off balance. . (-) pronator drift. No nuchal rigidity. Skin: Skin is warm and dry and no rashes or lesions are noted. Psychiatric: Cooperative, appropriate mood & affect, normal judgment. Limitations: no limitations Course Vital Signs 08/29/20 18:05 Temperature 97.6 F Pulse Rate 103 H Respiratory 17 Rate Blood Pressure 147/90 O2 Sat by Pulse 100 Oximetry Medical Decision Making - Medical Decision Making Labs reveal leukocytosis.. Chest x-ray clear. CT brain no acute changes. but white matter change in past noted on MRI, concern MS. with hx of diplopia it is felt that this is a probable differential. Mina since symptoms have been chronic with acute worsening. pt chest pain also described as daily, initial troponin (- ). Discussed case wtih Dr Mcelroy who is agreeable to admission for neurology consultation. - Lab Data Result diagrams: 08/29/20 18:45 08/29/20 18:45 Lab Results 08/29/20 08/29/20 08/29/20 Range/Units 18:45 18:45 18:45 WBC 15.8 H (3.8-10.6) k/uL RBC 4.47 (3.80-5.40) m/uL Hgb 13.6 (11.4-16.0) gm/dL Hct 40.5 (34.0-46.0) % MCV 90.6 (80.0-100.0) fL MCH 30.5 (25.0-35.0) pg MCHC 33.7 (31.0-37.0) g/dL RDW 13.5 (11.5-15.5) % Plt Count 427 (150-450) k/uL MPV 6.4 Neutrophils % 74 % Lymphocytes % 16 % Monocytes % 6 % Eosinophils % 3 % Basophils % 0 % Neutrophils # 11.6 H (1.3-7.7) k/uL Lymphocytes # 2.6 (1.0-4.8) k/uL Monocytes # 0.9 (0-1.0) k/uL Eosinophils # 0.5 (0-0.7) k/uL Basophils # 0.1 (0-0.2) k/uL PT 9.5 (9.0-12.0) sec INR 0.9 (<1.2) APTT 25.9 (22.0-30.0) sec Sodium 142 (137-145) mmol/L Potassium 3.3 L (3.5-5.1) mmol/L Chloride 106 (98-107) mmol/L Carbon Dioxide 29 (22-30) mmol/L Anion Gap 7 mmol/L BUN 12 (7-17) mg/dL Creatinine 0.67 (0.52-1.04) mg/dL Est GFR (CKD-EPI)AfAm >90 (>60 ml/min/1.73 sqM) Est GFR (CKD-EPI)NonAf >90 (>60 ml/min/1.73 sqM) Glucose 127 H (74-99) mg/dL Calcium 9.8 (8.4-10.2) mg/dL Magnesium 1.8 (1.6-2.3) mg/dL Total Bilirubin 0.6 (0.2-1.3) mg/dL AST 22 (14-36) U/L ALT 17 (4-34) U/L Alkaline Phosphatase 106 (38-126) U/L Troponin I (0.000-0.034) ng/mL NT-Pro-B Natriuret Pep pg/mL Total Protein 7.4 (6.3-8.2) g/dL Albumin 4.5 (3.5-5.0) g/dL 08/29/20 08/29/20 Range/Units 18:45 18:45 WBC (3.8-10.6) k/uL RBC (3.80-5.40) m/uL Hgb (11.4-16.0) gm/dL Hct (34.0-46.0) % MCV (80.0-100.0) fL MCH (25.0-35.0) pg MCHC (31.0-37.0) g/dL RDW (11.5-15.5) % Plt Count (150-450) k/uL MPV Neutrophils % % Lymphocytes % % Monocytes % % Eosinophils % % Basophils % % Neutrophils # (1.3-7.7) k/uL Lymphocytes # (1.0-4.8) k/uL Monocytes # (0-1.0) k/uL Eosinophils # (0-0.7) k/uL Basophils # (0-0.2) k/uL PT (9.0-12.0) sec INR (<1.2) APTT (22.0-30.0) sec Sodium (137-145) mmol/L Potassium (3.5-5.1) mmol/L Chloride (98-107) mmol/L Carbon Dioxide (22-30) mmol/L Anion Gap mmol/L BUN (7-17) mg/dL Creatinine (0.52-1.04) mg/dL Est GFR (CKD-EPI)AfAm (>60 ml/min/1.73 sqM) Est GFR (CKD-EPI)NonAf (>60 ml/min/1.73 sqM) Glucose (74-99) mg/dL Calcium (8.4-10.2) mg/dL Magnesium (1.6-2.3) mg/dL Total Bilirubin (0.2-1.3) mg/dL AST (14-36) U/L ALT (4-34) U/L Alkaline Phosphatase (38-126) U/L Troponin I <0.012 (0.000-0.034) ng/mL NT-Pro-B Natriuret Pep 102 pg/mL Total Protein (6.3-8.2) g/dL Albumin (3.5-5.0) g/dL Disposition Clinical Impression: Diplopia, Dizziness, Chest discomfort Disposition: ADMITTED IP TO THIS [facility] Condition: Stable Is patient prescribed a controlled substance at d/c from ED?: No Referrals: Sona Sommer MD [Primary Care Provider] - 1-2 days Time of Disposition: 20:41 Decision to Admit Reason: Admit from EC Decision Date: 08/29/20 Decision Time: 20:42
--- NOTE | 2020-08-29 19:33 | CT ---
EXAMINATION TYPE: CT brain wo con DATE OF EXAM: 08/29/2020 COMPARISON: 01/28/2018 HISTORY: Dizziness and lightheaded x1 year. CT DLP: 1099.4 mGycm Automated exposure control for dose reduction was used. Images of the brain were obtained without contrast. Ventricles and sulci appear normal. There is no mass effect nor midline shift. There is no sign of in tracranial hemorrhage. The calvarium is intact. There is no evidence of cerebral edema. IMPRESSION: Negative unenhanced head CT scan. No change.
--- NOTE | 2020-08-29 19:48 | XR ---
EXAMINATION TYPE: XR chest 2V DATE OF EXAM: 08/29/2020 COMPARISON: 05/19/2013 HISTORY: Chest pain TECHNIQUE: FINDINGS: Heart and mediastinum are normal. Lungs are clear. Diaphragm is normal. Bony thorax appears normal. There are chest leads. IMPRESSION: Normal chest. No change.
[2020-08-29] MEDS ORDERED: NALOXONE 0.4 MG/ML 1 ML VIAL IV PRN (20:39)
[2020-08-29] MEDS ORDERED: methylPREDNISolone SOD SUCCI 125 MG/2 ML VIAL IV STA (22:25)
[2020-08-29] MEDS: SODIUM CHLORIDE 0.9% 1,000 ML IV SCH (23:37)
[2020-08-30] MEDS ORDERED: ACETAMINOPHEN TAB 325 MG TAB PO PRN (07:11)
[2020-08-30] MEDS: PANTOPRAZOLE 40 MG TABLET PO SCH ×2 (08:07→17:18)
--- NOTE | 2020-08-30 09:46 | P.CNNES ---
History of Present Illness Consult date: 08/30/20 Requesting physician: Georgette Mehta Reason for Consult: diplopia History of Present Illness: This is a 49-year-old woman with medical history of chronic migraine, hypertension, hypothyroidism that presented to the emergency department on 08/29/2020 for double vision, feeling light headed and worsening of her unsteady gait. Patient stated that the she's been having unsteady gait for the last 1 year but in the last about 2 weeks her gait has been getting worse as well as in the last 1 week she noticed that that she's feeling lightheaded and she's been having the double vision out of both eyes. She also feels like her vision is blurry She said that when she is walking as she usually the feels unsteady and she leans to the left. She just felt lightheaded and she stated that she doesn't feel dizzy but just lightheaded but she couldn't expand on it that. She denies of any focal weakness. She stated that sometimes she has numbness on the left hand. She denies of any difficulty swallowing or difficulty getting her words out. She denies of any ringing in the ears or hearing loss. She stated that the she just recovered from COVID-19 about 2-1/2 weeks ago and at that time met she would just on multiple vitamins. She stated that the she followed up with a neurologist (Dr. Farah) and the unsure what the final diagnosis but that she's is being worked-up for possible Multiple Sclerosis. He notified her that possibly she needs a lumbar puncture but was in the process of getting carotid duplex first. She stated that the her PCP noticed she had nystagmus and unsure of which eye. Regarding this questionable lupus she said that was not definite of diagnoses and she said that the she followed up with the post exchange manager also do local [place] but were not definite but lupus or not. The anti-double- stranded dad DNA sometimes would come back positive and sometimes would come back negative and she said that she she has not followed up with a post exchange manager since then. She's not on any steroids or any disease modifying therapy. She is currently not having headache and not on any medication for migraines. In the past when her blood pressure was elevated her headache were uncontrolled. She said her father's cousin has history of multiple sclerosis otherwise there is no family history of multiple sclerosis. Upon reviewing our record: Patient did have MRI the brain with and without on the Jun 27 2020 and it's reported as P gnosis unchanged. No advanced change compared to old exam. No acute intracranial abnormality. There are a few tiny's as scattered white matter high signal foci in both cerebral hemispheres not change compared to old exam. Prior to that she had MRI on June 2019 is reported as no acute intracranial abnormality seen. Scattered foci of punctate bright white matter change with minimal overall burden is nonspecific and could relate to have very early change s of chronic small vessel ischemic disease. Chronic migraine are also consideration. Deep monitoring disease considered less likely given the overall appearance. Unremarkable acute stick MRI. 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 She had CANDELARIA screen was positive on 2019 but that double-stranded DNA is negative. Rheumatoid factor is 5 which is within normal limits. Workup in the hospital consisted of: Initial vital signs: Blood pressure of 147/90, heart rate of 103, respiratory of 17, temperature of 97.6 Fahrenheit oral and pulse ox of 100% at room air. CT of the head is reported as negative unenhanced head CT scan. No change. EKG is reported as normal sinus rhythm. Low voltage QRS. Prolonged QT. Abnormal EKG. Initial white blood cells 15.8 Initial serum glucose 127 and the potassium is 3.3 which is minimally low for the potassium. Otherwise the rest of the basic metabolic panel is normal. She received Solu-Medrol 125 mg once and it was ordered by the ED team and she stated that she felt somewhat better after the Solu-Medrol. Review of Systems Review of system: The 12 point system was reviewed and apparent positive and negative per HPI. Past Medical History Past Medical History: GERD/Reflux, Hypertension, Thyroid Disorder Additional Past Medical History / Comment(s): lupus. 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 History of Any Multi-Drug Resistant Organisms: None Reported Past Surgical History: Cholecystectomy, Orthopedic Surgery Past Anesthesia/Blood Transfusion Reactions: Motion Sickness, Postoperative Nausea & Vomiting (PONV) Past Psychological History: Anxiety Smoking Status: Current every day smoker Past Alcohol Use History: None Reported Additional Past Alcohol Use History / Comment(s): smoker for 30+ years 1 ppd Past Drug Use History: None Reported - Past Family History Mother Family Medical History: Cancer Additional Family Medical History / Comment(s): lung cancer 2006 Father Family Medical History: Cancer Additional Family Medical History / Comment(s): skin cancer Medications and Allergies Home Medications Medication Instructions Recorded Confirmed Type Dextroamphetamine/Amphetamine 15 mg PO BID 12/30/16 08/29/20 History [Adderall] Levothyroxine Sodium [Synthroid] 50 mcg PO DAILY 12/30/16 08/29/20 History Pantoprazole Sodium [Protonix] 40 mg PO BID 12/30/16 08/29/20 History Escitalopram [Lexapro] 10 mg PO HS 12/01/19 08/29/20 History Ascorbic Acid [Vitamin C] 1,000 mg PO DAILY 08/29/20 08/29/20 History Cholecalciferol [Vitamin D3 (25 25 mcg PO DAILY 08/29/20 08/29/20 History Mcg = 1000 Iu)] Metoprolol Tartrate [Lopressor] 25 mg PO HS 08/29/20 08/29/20 History Zinc 50 mg PO DAILY 08/29/20 08/29/20 History amLODIPine [Norvasc] 5 mg PO HS 08/29/20 08/29/20 History Allergies Allergy/AdvReac Type Severity Reaction Status Date / Time Iodinated Contrast Media Allergy Anaphylaxis Verified 08/29/20 19:21 [Iodinated Contrast Media - IV Dye] shellfish derived [Shellfish] Allergy Anaphylaxis Verified 08/29/20 19:21 steroids AdvReac Rapid Uncoded 08/29/20 19:21 Heart Rate Physical Examination - Vital Signs Vital Signs: Vital Signs Temp Pulse Pulse Resp BP BP Pulse Ox 08/29/20 23:19 98 F 70 18 125/77 97 08/29/20 22:58 78 16 135/82 97 08/29/20 18:05 97.6 F 103 H 17 147/90 100 Intake and Output 08/29/20 08/30/20 08/30/20 22:59 06:59 14:59 Intake Total 180 Balance 180 Intake: Intake, IV Titration 180 Amount Sodium Chloride 0.9% 1, 180 000 ml @ 20 mls/hr IV . Q24H [facility] Rx#:[id number] Other: # Voids 1 Weight 63.503 kg 63.503 kg GENERAL: The patient is lying in bed and is not in acute distress. CHEST: The heart rate is regular rate rhythm. No murmurs to auscultation. No carotid bruit bilaterally. LUNG: Clear to auscultation bilaterally no wheezing noted throughout. Not labored breathing. ABDOMEN/GI: Bowel sounds present in all 4 quadrants. No tenderness to palpation throughout. NEUROLOGICAL: Higher mental function: The patient is awake, alert, oriented to self, place and time. Patient is following commands. No aphasia and no neglect. Cranial nerves: Visual acuity is 20/20 OU without correction. The pupils are round, equal and reactive to light and accommodation. Visual lord are full to confrontation throughout. Extraocular movement there is rotatory nystagmus of both eyes looking to the left. She had pain looking upwards bilaterally. Facial sensation is normal to touch throughout. The facial strength is normal throughout. Hearing is normal bilaterally to hand rub. Tongue is midline and moved [id number] without any difficulty. No dysarthria is noted. Shoulder shrug is normal bilaterally. Motor: Gait is unsteady and was leaning toward the right. The strength is 5 over 5 throughout. Normal tone and bulk. Cerebellum: Normal finger to nose heel to chin bilaterally. Sensation: Sensation is normal to touch throughout. Reflexes (right/left): 2+ in uppers and 1+ in lowers. Plantars are downgoing bilaterally. Results SARS Covid 2 PCR is not detected Influenza A/B: Not detected. 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 Rule out Multiple Sclerosis. Also rule out any other intrcranial process contributing this 1.2 cm pineal gland cyst Chronic migraine Hypertension Hypothyroidism Plan: * Patient did have MRI the brain with and without on the Jun 27 2020 and it's reported as P gnosis unchanged. No advanced change compared to old exam. No acute intracranial abnormality. There are a few tiny's as scattered white matter high signal foci in both cerebral hemispheres not change compared to old exam. * Prior to that she had MRI on June 2019 is reported as no acute i ntracranial abnormality seen. Scattered foci of punctate bright white matter change with minimal overall burden is nonspecific and could relate to have very early changes of chronic small vessel ischemic disease. Chronic migraine are also consideration. Deep monitoring disease considered less likely given the overall appearance. Unremarkable acute stick MRI. 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 * She had CANDELARIA screen was positive on 2019 but that double-stranded DNA is negative. She follow-up with Data Communications Engineer and no definitive diagnosis of lupus and has not followed-up with Data Communications [employer] since. * Rheumatoid factor is 5 which is within normal limits. * I will get a repeat MRI of the brain with and without. I will also get MRI the cervical spine with and without. * After Lumbar puncture I will get lumbar puncture. * If the test above are suggestive of multiple sclerosis then I'll start the patient on IV steroids for 3-5 days. * I ordered a TSH, vitamin B12 and ordered carotid duplex. * I consulted the physical therapy and occupation therapy * Patient was notified upon discharge she needs to follow-up with a Neurologist and Data Communications Engineer. Thank you for the consultation UPDATE: MR the brain is reported as suboptimal study. Minimal nonspecific white matter changes redemonstrated. No new or enhancing lesion seen. In the body of the report it is mentioned that the patient has 8 mm pineal gland cyst. MRI of the cervical spine is reported as no MRI evidence for demyelinating disease involving the cervical spinal cord. Multilevel degenerative changes greatest at C4-C5 and C6-C7 levels. Carotid duplex is reported as no significant hemodynamic stenosis. Upon reviewing the images I feel the patient's symptoms (diplopia, nystagmus, ataxia and headaches) are likely due to pineal cyst. I don't think the patient will benefit from lumbar puncture since I doubt this is the mind disease. I gave the patient and additional dose of Solu-Medrol 125 mg once since she felt better after she received her dose from yesterday. I placed the patient on Topamax 25 mg 1 tablet twice a day and if she can tolerate it without any side effects then the after one week at to go up to 50 mg 1 tablet twice a day (Topamax decrease intracranial pressure). Patient is to follow-up with: Dr. Aleshia Ferrell (Neuro-surgeon) [facility] [id number] [address], [address] [place] [address] [phone] Cameron Ron MD Neuro-Hospitalist. Time with Patient: Greater than 30
[2020-08-30] MEDS: CHOLECALCIFEROL 25 MCG (1000 IU) TABLET PO SCH (11:08)
[2020-08-30] MEDS: ZINC SULFATE 220 MG CAP PO SCH (11:08)
[2020-08-30] MEDS: LEVOTHYROXINE 50 MCG TAB PO SCH (11:09)
[2020-08-30] MEDS: ASCORBIC ACID 500 MG TAB PO SCH (11:09)
[2020-08-30] MEDS: Dextroamphetamine/Amphetamine [Adderall] PO SCH ×2 (11:10→20:40)
--- NOTE | 2020-08-30 11:12 | US ---
EXAMINATION TYPE: US carotid duplex BILAT DATE OF EXAM: 08/30/2020 COMPARISON: NONE CLINICAL HISTORY: unsteady gait. Rule out carotid stenosis. Exam done portable. EXAM MEASUREMENTS: RIGHT: Peak Systolic Velocity (PSV) cm/sec ----- Right CCA: 74.3 ----- Right ICA: 110.8 ----- Right ECA: 115.7 ICA/CCA ratio: 1.5 RIGHT: End Diastole cm/sec ----- Right CCA: 20.4 ----- Right ICA: 52.4 ----- Right ECA: 25.2 LEFT: Peak Systolic Velocity (PSV) cm/sec ----- Left CCA: 82.3 ----- Left ICA: 133.2 ----- Left ECA: 127.3 ICA/CCA ratio: 1.6 LEFT: End Diastole cm/sec ----- Left CCA: 28.5 ----- Left ICA: 61.9 ----- Left ECA: 27.0 VERTEBRALS (direction of flow): Right Vertebral: Antegrade Left Vertebral: Antegrade Rhythm: Normal No elevated velocities, no significant stenosis. IMPRESSION: 1. No significant hemodynamic stenosis. Criteria for Assigning % of Stenosis / Diameter reduction (Estimation based on the indirect measurements of the internal carotid artery velocities (ICA PSV). 1. Normal (no stenosis)=ICA PSV < 125 cm/s: ratio < 2.0: ICA EDV<40 cm/s. 2. Less than 50% stenosis=ICA PSV < 125 cm/s: ratio < 2.0: ICA EDV<40 cm/s. 3. 50 to 69% stenosis=ICA PSV of 125 to 230 cm/s: ration 2.0 ? 4.0: ICA EDV 40-100 cm/s. 4. Greater than 70% stenosis to near occlusion= ICA PSV > 230 cm/s: ratio > 4.0: ICA EDV > 100 cm/s. 5. Near occlusion= ICA PSV velocities may be low or undetectable: variable ratio and ICA EDV. 6. Total occlusion=unable to detect flow.
[2020-08-30 13:11] LABS: T4, Free (Free Thyroxine) 1.18 ng/dL (0.78-2.19)
--- NOTE | 2020-08-30 15:28 | MR ---
EXAMINATION TYPE: MR brain/cspine wo/w DATE OF EXAM: 08/30/2020 COMPARISON: Prior MRI brain June 27, 2020. Prior CT cervical spine May 19, 2013 HISTORY: Unsteady gait and nystagmus, rule out MS TECHNIQUE: Multiplanar, multisequence images of the cervical spine, brain and brainstem are all performed withou t and with IV contrast, utilizing 6.5 mL intravenous Gadavist gadolinium contrast is administered int ravenously. Demyelinating disease protocol with additional Sagittal Flair sequence brain and brainst em and PD sagittal sequence cervical spine all performed. FINDINGS: BRAIN: Exam suboptimal as patient is unable to hold still for ideal imaging. T2 Lesions Present : Yes Approximate Number of Lesions: Approximately 5 Locations Identified : Scattered tiny Size of Reference Lesion(s): 1. 4 x 2 x 3 mm focus left frontal lobe axial image 21 and sagittal image 15 stable Enhancing Lesion(s) Present: No T1 Hypointense Lesion(s) Present: No Change from Prior: Stable Diffusion weighted images demonstrate no evidence of a recent infarct or other diffusion abnormality. There is no worrisome extra-axial fluid collection. The ventricular system and cisternal spaces ar e normal in size and appearance. The brain volume is age appropriate. Midline structures demonstrate normal morphology. The craniocervical junction appears within normal limits. Post contrast images demonstrate no abnormal enhancement. The dural venous sinuses appear pa tent. The visualized sinuses are clear and the globes are intact. Stable incidental 8 mm pineal glan d cyst axial image 15. IMPRESSION: Suboptimal study. Minimal nonspecific white matter changes redemonstrated. No new or enha ncing lesions seen. C-SPINE: FINDINGS: Sagittal images of the cervical spine show the craniocervical junction to appear within nor mal limits. The cervical and upper thoracic spinal cord is normal in course, caliber, and signal. V ertebral alignment is stable and satisfactory. The vertebral body and intravertebral disk heights re main normal. The bone marrow signal intensity is within normal limits. No suspicious postcontrast en hancement. Axial images show C2-C3 level to appear within normal limits. Axial images at C3-C4 level shows some uncovertebral facet degenerative changes bilaterally with tiny right paracentral disc protrusion mildly effaces the anterior thecal sac, there is mild bilateral ne ural foraminal narrowing. Axial images at C4-C5 level show more prominent broad-based right paracentral disc protrusion effacin g the anterior thecal sac nearly up to ventral surface of spinal cord and causing moderate bilateral neural foraminal narrowing. Axial images at C5-C6 level show focal left paracentral disc protrusion effacing the anterolateral th ecal sac, there is moderate left-sided neural foraminal narrowing. Axial images at C6-C7 level shows broad-based posterior disc protrusion effacing the anterior thecal sac and causing moderate right greater than left bilateral neural foraminal narrowing. Axial images at C7-T1 level appear within normal limits. IMPRESSION: No MRI evidence for demyelinating disease involving the cervical spinal cord. Multilevel degenerative changes greatest at C4-C5 and C6-C7 levels as detailed above.
[2020-08-30] MEDS ORDERED: NAPROXEN 250 MG TAB PO STA (15:36)
[2020-08-30 15:40] VITALS: RESP 16
[2020-08-30] MEDS ORDERED: methylPREDNISolone SOD SUCCI 125 MG/2 ML VIAL IV STA (17:20)
[2020-08-30] MEDS: TOPIRAMATE 25 MG TAB PO SCH (20:37)
[2020-08-30] MEDS ORDERED: ESCITALOPRAM 10 MG TAB PO SCH (21:00)
[2020-08-30] MEDS ORDERED: METOPROLOL TARTRATE 25 MG TAB PO SCH (21:00)
[2020-08-30] MEDS ORDERED: amLODIPine 5 MG TAB PO SCH (21:00)
--- NOTE | 2020-08-30 22:47 | P.HPIM ---
History of Present Illness H&P Date: 08/30/20 Chief Complaint: Of balance History of presenting complaint: This is a 29-year-old patient of Dr. Sommer. Chronic stable medical conditions include GERD, hypertension, hypothyroid. History of lupus that is apparently stable. She also has a cystoscopy to treat bladder the brain that is being followed as an outpatient. Patient has been for about a year feeling slightly off balance. Especially with moving. Head sometimes feels cloudy. Sometimes a double vision or moving/turning her head. No change in the bladder continence. HE gets tingling in the hands. She has followed up with Dr. Farah from neurology. She did have a MRI in June 2019 and in June of this year. No specific findings were noted. She decided to present to the ER. 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 No alcohol. No recreational drugs. Lives with her called [employer]. 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 Physical examination: VITAL SIGNS: 97.8, 78, 20, 101/64, 96% room air GENERAL: BMI 25.6, laying in bed, comfortable. EYES: Pupils equal. Conjunctiva normal. HEENT: External appearance of nose and ears normal, oral cavity grossly normal. NECK: JVD not raised; masses not palpable. HEART: First and second heart sounds are normal; no edema. LUNGS: Respiratory rate normal; clear to auscultation. ABDOMEN: Soft, nontender, liver spleen not palpable, no masses palpable. PSYCH: Alert and oriented x3; mood and affect normal. NEUROLOGICAL: Cranial nerves grossly intact; no facial asymmetry, power and sensation grossly intact. LYMPHATICS: No lymph nodes palpable in the axilla and neck INVESTIGATIONS, reviewed in the clinical context: WBC 15.8 hemoglobin 13.6 potassium 3.3 creatinine 0.67 TSH 0.087 free T4 1 0.18 Influenza type A, type B, RSV, COVID 19 PCR: Not detected Computed tomography scan brain: Negative Chest x-ray film personally reviewed by me-negative EKG tracing personally reviewed by me-normal sinus rhythm. Prolonged QT Assessment and plan: -Patient for about a year has been having neurological symptoms to include feeling a bit off balance. Some double vision with moving her head. Head feeling in a cloud. Laying in the hands. Patient has been worked up by neurologist as an outpatient including 2 MRIs but no specific findings. Now presents for some worsening of symptoms. Differential includes demanding disorder/multiple sclerosis. -GERD Continue with Protonix -Essential hypertension On Lopressor, Norvasc Anxiety not otherwise specified Continue with Lexapro -Hypothyroid Synthroid -Questionable lupus in remission -Chronic nicotine dependence patient cigarette smoker Nicotine patch Care was discussed with the patient. Home medications resumed. Lovenox for DT prophylaxis. Neurology consulted. MRI and lumbar puncture are probably being ordered Past Medical History Past Medical History: GERD/Reflux, Hypertension, Thyroid Disorder Additional Past Medical History / Comment(s): lupus. 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 History of Any Multi-Drug Resistant Organisms: None Reported Past Surgical History: Cholecystectomy, Orthopedic Surgery Past Anesthesia/Blood Transfusion Reactions: Motion Sickness, Postoperative Nausea & Vomiting (PONV) Past Psychological History: Anxiety Smoking Status: Current every day smoker Past Alcohol Use History: None Reported Additional Past Alcohol Use History / Comment(s): smoker for 30+ years 1 ppd Past Drug Use History: None Reported - Past Family History Mother Family Medical History: Cancer Additional Family Medical History / Comment(s): lung cancer 2006 Father Family Medical History: Cancer Additional Family Medical History / Comment(s): skin cancer Medications and Allergies Home Medications Medication Instructions Recorded Confirmed Type Dextroamphetamine/Amphetamine 15 mg PO BID 12/30/16 08/29/20 History [Adderall] Levothyroxine Sodium [Synthroid] 50 mcg PO DAILY 12/30/16 08/29/20 History Pantoprazole Sodium [Protonix] 40 mg PO BID 12/30/16 08/29/20 History Escitalopram [Lexapro] 10 mg PO HS 12/01/19 08/29/20 History Ascorbic Acid [Vitamin C] 1,000 mg PO DAILY 08/29/20 08/29/20 History Cholecalciferol [Vitamin D3 (25 25 mcg PO DAILY 08/29/20 08/29/20 History Mcg = 1000 Iu)] Metoprolol Tartrate [Lopressor] 25 mg PO HS 08/29/20 08/29/20 History Zinc 50 mg PO DAILY 08/29/20 08/29/20 History amLODIPine [Norvasc] 5 mg PO HS 08/29/20 08/29/20 History Allergies Allergy/AdvReac Type Severity Reaction Status Date / Time Iodinated Contrast Media Allergy Anaphylaxis Verified 08/29/20 19:21 [Iodinated Contrast Media - IV Dye] shellfish derived [Shellfish] Allergy Anaphylaxis Verified 08/29/20 19:21 steroids AdvReac Rapid Uncoded 08/29/20 19:21 Heart Rate Physical Exam Vitals: Vital Signs Temp Pulse Pulse Resp BP BP Pulse Ox 08/30/20 08:49 97.8 F 78 20 101/64 96 08/29/20 23:19 98 F 70 18 125/77 97 08/29/20 22:58 78 16 135/82 97 08/29/20 18:05 97.6 F 103 H 17 147/90 100 Intake and Output 08/29/20 08/30/20 08/30/20 22:59 06:59 14:59 Intake Total 180 Balance 180 Intake: Intake, IV Titration 180 Amount Sodium Chloride 0.9% 1, 180 000 ml @ 20 mls/hr IV . Q24H [facility] Rx#:[id number] Other: # Voids 1 Weight 63.503 kg 63.503 kg Results CBC & Chem 7: 08/29/20 18:45 08/29/20 18:45 Labs: Abnormal Lab Results - Last 24 Hours (Table) 08/29/20 08/29/20 Range/Units 18:45 18:45 WBC 15.8 H (3.8-10.6) k/uL Neutrophils # 11.6 H (1.3-7.7) k/uL Potassium 3.3 L (3.5-5.1) mmol/L Glucose 127 H (74-99) mg/dL Thrombosis Risk Factor Assmnt - Choose All That Apply Any of the Below Risk Factors Present?: Yes Each Factor Represents 1 point: Obesity (BMI >25) Thrombosis Risk Factor Assessment Total Risk Factor Score: 1 Thrombosis Risk Factor Assessment Level: Low Risk
[2020-08-31] MEDS: SODIUM CHLORIDE 0.9% 1,000 ML IV SCH (00:03)
[2020-08-31] MEDS: LEVOTHYROXINE 50 MCG TAB PO SCH (06:17)
[2020-08-31] MEDS: PANTOPRAZOLE 40 MG TABLET PO SCH (06:17)
[2020-08-31] MEDS: ASCORBIC ACID 500 MG TAB PO SCH (09:15)
[2020-08-31] MEDS: CHOLECALCIFEROL 25 MCG (1000 IU) TABLET PO SCH (09:15)
[2020-08-31] MEDS: ZINC SULFATE 220 MG CAP PO SCH (09:15)
[2020-08-31] MEDS: TOPIRAMATE 25 MG TAB PO SCH (09:15)
[2020-08-31] MEDS: Dextroamphetamine/Amphetamine [Adderall] PO SCH (09:40)
[2020-08-31 09:53] VITALS: BP 118/79; PULSE 68; TEMP 97.7
--- NOTE | 2020-08-31 16:08 | P.PN ---
Subjective Progress Note Date: 08/31/20 The patient was seen at bedside and she feels slightly better today compared to yesterday. Otherwise she denies of any new neurological problems. Objective - Vital Signs Vital signs: Vital Signs Temp 97.7 F 08/31/20 08:55 Pulse 68 08/31/20 08:55 Resp 16 08/31/20 08:55 BP 118/79 08/31/20 08:55 Pulse Ox 99 08/31/20 08:55 Intake & Output 08/30/20 08/31/20 08/31/20 18:59 06:59 18:59 Other: Voiding Method Toilet # Voids 1 1 1 # Bowel Movements 1 - Exam GENERAL: The patient is lying in bed and is not in acute distress. NEUROLOGICAL: Higher mental function: The patient is awake, alert, oriented to self, place and time. Patient is following commands. No aphasia and no neglect. Cranial nerves: Visual acuity is 20/20 OU without correction. The pupils are round, equal and reactive to light and accommodation. Visual lord are full to confrontation throughout. Extraocular movement there is rotatory nystagmus of both eyes looking to the left. She had pain looking upwards bilaterally. Facial sensation is normal to touch throughout. The facial strength is normal throughout. Hearing is normal bilaterally to hand rub. Tongue is midline and moved [id number] without any difficulty. No dysarthria is noted. Shoulder shrug is normal bilaterally. Motor: Gait is unsteady and was leaning toward the right. The strength is 5 over 5 throughout. Normal tone and bulk. Cerebellum: Normal finger to nose heel to chin bilaterally. Sensation: Sensation is normal to touch throughout. Reflexes (right/left): 2+ in uppers and 1+ in lowers. Plantars are downgoing bilaterally. 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 1.2 cm pineal gland cyst (per CT head) while reported 8mm on MRI Brain. Chronic migraine Hypertension Hypothyroidism Plan: * Patient did have MRI the brain with and without on the Jun 27 2020 and it's reported as P gnosis unchanged. No advanced change compared to old exam. No acute intracranial abnormality. There are a few tiny's as scattered white matter high signal foci in both cerebral hemispheres not change compared to old exam. * Prior to that she had MRI on June 2019 is reported as no acute intracranial abnormality seen. Scattered foci of punctate bright white matter change with minimal overall burden is nonspecific and could relate to have very early changes of chronic small vessel ischemic disease. Chronic migraine are also consideration. Deep monitoring disease considered less likely given the overall appearance. Unremarkable acute stick MRI. 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 * She had CANDELARIA screen was positive on 2019 but that double-stranded DNA is negative. She follow-up with [facility] and no definitive diagnosis of lupus and has not followed-up with [facility] since. * Rheumatoid factor is 5 which is within normal limits. * MR the brain is reported as suboptimal study. Minimal nonspecific white matter changes redemonstrated. No new or enhancing lesion seen. In the body of the report it is mentioned that the patient has 8 mm pineal gland cyst. * MRI of the cervical spine is reported as no MRI evidence for demyelinating disease involving the cervical spinal cord. Multilevel degenerative changes greatest at C4-C5 and C6-C7 levels. * Carotid duplex is reported as no significant hemodynamic stenosis. * Vitamin B12 is 400 was is considered normal. * TSH is 0.087 which is low and the free T4 is 1.18 which is considered normal. * physical therapy and occupation therapy are consulted * I perscribed Topamax 25mg 1 tab bid for headaches and which helps with decrease ICP. Patient was notified if she tolerated the medication to go up to 25mg 2 tab bid in on week and continue on that dose until she sees a neurosurgeon and gets evaluated. * Patient was notified upon discharge she needs to follow-up with a Neurologist and [facility]. * Patient is to follow-up with: Dr. Aleshia Ferrell (Neuro-surgeon), [facility], [id number] [place] [address], [address], [place] [address], (I personally spoke with the Neurosurgeon and he stated his team will contact the patient). I notified the patient about that. There is no further work-up needed at this time. The plan is discussed with the patient and his primary team. Cameron Ron MD Neuro-Hospitalist. Time with Patient: Less than 30
--- NOTE | 2020-08-31 21:12 | P.DS ---
Providers Date of admission: 08/29/20 21:37 Expected date of discharge: 08/31/20 Attending physician: Josh Ayala Consults: 08/29/20 20:39 Consult Physician Routine Consulting Provider: Cameron Ron Consult Reason/Comments: diplopia Do you want consulting provider notified?: Yes Primary care physician: Sona Sommer MD Hospital Course: Chief Complaint: Of balance History of presenting complaint: This is a 29-year-old patient of Dr. Sommer. Chronic stable medical conditions include GERD, hypertension, hypothyroid. History of lupus that is apparently stable. She also has a cystoscopy to treat bladder the brain that is being followed as an outpatient. Patient has been for about a year feeling slightly off balance. Especially with moving. Head sometimes feels cloudy. Sometimes a double vision or moving/turning her head. No change in the bladder continence. HE gets tingling in the hands. She has followed up with Dr. Farah from neurology. She did have a MRI in June 2019 and in June of this year. No specific findings were noted. She decided to present to the ER. Repeat MRI showed presence of T2 lesions. Approximately 5 in number. No enhancing lesions. 8 mm pineal gland cyst. Today: His also discussed with Dr. Ron from neurology. He wants the patient to follow up with neurosurgery and he feels the symptoms are from the pineal gland. Lumbar puncture not indicated at the present time. This was discussed with the patient. Patient was seen by physical therapy. Walker is prescribed Discussion and discharge planning more than 35 minutes Consultation: Dr. ron from neurology Past medical history to include: GERD, hypertension, hypothyroid, lupus, cyst on the pituataryt gland Social history: Smokes a pack a day for over 30 years. No alcohol. No recreational drugs. Lives with her called [employer]. 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 Physical examination: VITAL SIGNS: 97.7, 68, 16, 118/79, 99% room air GENERAL: BMI 25.6, laying in bed, comfortable. EYES: Pupils equal. Conjunctiva normal. HEENT: External appearance of nose and ears normal, oral cavity grossly normal. NECK: JVD not raised; masses not palpable. HEART: First and second heart sounds are normal; no edema. LUNGS: Respiratory rate normal; clear to auscultation. ABDOMEN: Soft, nontender, liver spleen not palpable, no masses palpable. PSYCH: Alert and oriented x3; mood and affect normal. INVESTIGATIONS, reviewed in the clinical context: Brain MRA: Results as above WBC 15.8 hemoglobin 13.6 potassium 3.3 creatinine 0.67 TSH 0.087 free T4 1 0.18 Influenza type A, type B, RSV, COVID 19 PCR: Not detected Computed tomography scan brain: Negative Chest x-ray film personally reviewed by me-negative EKG tracing personally reviewed by me-normal sinus rhythm. Prolonged QT Assessment and plan: -Patient for about a year has been having neurological symptoms to include feeling a bit off balance. Some double vision with moving her head. Head feeling in a cloud. Laying in the hands. Patient has been worked up by neurologist as an outpatient including 2 MRIs but no specific findings. Now pr esents for some worsening of symptoms. Symptoms are possibly from pineal gland 8 mm. MS flareup unlikely. -GERD Continue with Protonix -Essential hypertension On Lopressor, Norvasc Anxiety not otherwise specified Continue with Lexapro -Hypothyroid Synthroid -Questionable lupus in remission -Chronic nicotine dependence patient cigarette smoker Nicotine patch Disposition: Home Patient is to follow-up with: Dr. Aleshia Ferrell (Neuro-surgeon), [facility], [address] [place] [address], [address], [place] [address], (I personally spoke with the Neurosurgeon and he stated his team will contact the patient). I notified the patient about that. Patient Condition at Discharge: Stable Plan - Discharge Summary New Discharge Prescriptions: New Topiramate [Topamax] 25 mg PO BID #60 tab Continue Pantoprazole Sodium [Protonix] 40 mg PO BID Levothyroxine Sodium [Synthroid] 50 mcg PO DAILY Dextroamphetamine/Amphetamine [Adderall] 15 mg PO BID Escitalopram [Lexapro] 10 mg PO HS Cholecalciferol [Vitamin D3 (25 Mcg = 1000 Iu)] 25 mcg PO DAILY Metoprolol Tartrate [Lopressor] 25 mg PO HS Ascorbic Acid [Vitamin C] 1,000 mg PO DAILY amLODIPine [Norvasc] 5 mg PO HS Zinc 50 mg PO DAILY Discharge Medication List Dextroamphetamine/Amphetamine [Adderall] 15 mg PO BID 12/30/16 [History] Levothyroxine Sodium [Synthroid] 50 mcg PO DAILY 12/30/16 [History] Pantoprazole Sodium [Protonix] 40 mg PO BID 12/30/16 [History] Escitalopram [Lexapro] 10 mg PO HS 12/01/19 [History] Ascorbic Acid [Vitamin C] 1,000 mg PO DAILY 08/29/20 [History] Cholecalciferol [Vitamin D3 (25 Mcg = 1000 Iu)] 25 mcg PO DAILY 08/29/20 [History] Metoprolol Tartrate [Lopressor] 25 mg PO HS 08/29/20 [History] Zinc 50 mg PO DAILY 08/29/20 [History] amLODIPine [Norvasc] 5 mg PO HS 08/29/20 [History] Topiramate [Topamax] 25 mg PO BID #60 tab 08/31/20 [Rx] Follow up Appointment(s)/Referral(s): Sona Sommer MD [Primary Care Provider] - 1-2 days Patient Instructions/Handouts: Topiramate (By mouth) Activity/Diet/Wound Care/Special Instructions: f/u with neurosurgery as arranged by dr ron/from neuro Dr Luz Marina Ferrell [place] [id number] Ron,please follow up with the neurosurgeon as planned. If symptoms worsen please contact him and try to get in earlier. Advised patient not to drive or work until seen. Please use a walker at home for stablility. Regular diet as tolerated. Activity limited as above. use walker as directed. Topamax as directed, last received at 0915 Discharge Disposition: HOME SELF-CARE
== END 2020-08-31 12:40 | disposition home or self-care (01) ==
LOC: EC 18:02 → 6PED 21:37
PROVIDERS: ADMIT Hospitalist; ATTEND Hospitalist
DX: H53.2 Diplopia (principal); E34.8 Other specified endocrine disorders; D72.829 Elevated white blood cell count, unspecified; E03.9 Hypothyroidism, unspecified; H55.00 Unspecified nystagmus; K21.9 Gastro-esophageal reflux disease without esophagitis; I10 Essential (primary) hypertension; F17.210 Nicotine dependence, cigarettes, uncomplicated; G43.909 Migraine, unspecified, not intractable, without status migrainosus; F41.9 Anxiety disorder, unspecified; E66.9 Obesity, unspecified; Z68.25 Body mass index [BMI] 25.0-25.9, adult; Z79.899 Other long term (current) drug therapy; Z79.890 Hormone replacement therapy; Z91.041 Radiographic dye allergy status; Z88.8 Allergy status to other drugs, medicaments and biological substances; Z91.013 Allergy to seafood; Z20.822 Contact with and (suspected) exposure to COVID-19; Z86.16 Personal history of COVID-19; Z90.49 Acquired absence of other specified parts of digestive tract; Z80.1 Family history of malignant neoplasm of trachea, bronchus and lung; Z80.8 Family history of malignant neoplasm of other organs or systems; Z82.0 Family history of epilepsy and other diseases of the nervous system
CPT/HCPCS: 96374; 96376; 99285; 36415; 93005; 97162; 97166; 84439; 83880; 80053; 84443; 82607; 83735; 84484; 85025; 85610; 85730; 86780; 87390; 87636; 71046; 93880; 70450; 70553; 72156; G0378 ×3; J2930 ×2; A9585; 83916

== ENCOUNTER 2020-09-23 16:40 | Observation (INO) | payer BC, OTHER ==
--- NOTE | 2020-09-23 17:07 | ED ---
General Adult HPI - General Chief complaint: Chest Pain Stated complaint: leg swelling, chest tightness Time Seen by Provider: 09/23/20 16:46 Source: patient Mode of arrival: wheelchair Limitations: no limitations - History of Present Illness Initial comments: Dictation was produced using [employer] dictation software. please excuse any grammatical, word or spelling errors. Chief Complaint: 49-year-old female with past medical history of reflux hypertension thyroid disease presents with chest pressure, shortness of breath and lower external swelling History of Present Illness: She is a 49-year-old female for the last several days she's been having lower extremity swelling, exertional dyspnea and chest pressure. Symptoms have been ongoing since mid last week. She was seen by her primary care doctor prescribed her with Lasix. She is instructed to come to the emergency department if her symptoms return or worsen over the weekend. Patient states she has a pressure-like sensation to her substernal chest. She does report that is worse with deep inspiration. Denies any fever, chills or night sweats. No cough. States that she gets intermittent swelling in her lower extremities bilaterally worse on the left. Patient reports that there is strong family history of cardiac disease. The ROS documented in this emergency department record has been reviewed and confirmed by me. Those systems with pertinent positive or negative responses have been documented in the HPI. All other systems are other negative and/or noncontributory. PHYSICAL EXAM: General Impression: Alert and oriented x3, not in acute distress HEENT: Normocephalic atraumatic, extra-ocular movements intact, pupils equal and reactive to light bilaterally, mucous membranes moist. Cardiovascular: Heart regular rate and rhythm Chest: Able to complete full sentences, no retractions, no tachypnea Abdomen: abdomen soft, non-tender, non-distended, no organomegaly Musculoskeletal: Pulses present and equal in all extremities, no peripheral edema Motor: no focal deficits noted Neurological: CN II-XII grossly intact, no focal motor or sensory deficits noted Skin: Intact with no visualized rashes Psych: Normal affect and mood ED course: 49-year-old feel presents to the emergency department for chest pain, shortness of breath and lower extremity swelling. Signs upon arrival are within acceptable limits. EKG does not show any signs of ischemia or infarction. Laboratory evaluation obtained. CBC is unremarkable. Metabolic panel shows slight hypokalemia with potassium level III.1. Cardiac enzymes negative. Brain natruretic peptide negative. Coronavirus is negative. Chest x-ray shows no acute processes. Patient reevaluated at bedside states she still does have some mild chest pressure. Patient be admitted for cardiac monitoring, serial troponins and cardiology consultation. EKG interpretation: Ventricular rate 65, normal sinus rhythm, VA interval 150, QRS 86, QTC 428. No VA prolongation, no QTC prolongation, no ST or T-wave walker es noted. EKG compared to 09/23/2020 showing no changes. Overall, this EKG is unremarkable - Related Data Home Medications Medication Instructions Recorded Confirmed Levothyroxine Sodium [Synthroid] 50 mcg PO DAILY 12/30/16 09/23/20 Pantoprazole Sodium [Protonix] 40 mg PO BID 12/30/16 09/23/20 Escitalopram [Lexapro] 10 mg PO HS 12/01/19 09/23/20 Metoprolol Tartrate [Lopressor] 25 mg PO HS 08/29/20 09/23/20 amLODIPine [Norvasc] 5 mg PO HS 08/29/20 09/23/20 Cvfoexz-Rsba-Mwqd [id number] 1 tab PO Q4HR PRN 09/23/20 09/23/20 [Excedrin] Furosemide [Lasix] 20 mg PO DAILY 09/23/20 09/23/20 Allergies Allergy/AdvReac Type Severity Reaction Status Date / Time Iodinated Contrast Media Allergy Anaphylaxis Verified 09/23/20 17:57 [Iodinated Contrast Media - IV Dye] shellfish derived [Shellfish] Allergy Anaphylaxis Verified 09/23/20 17:57 steroids AdvReac Rapid Uncoded 09/23/20 16:45 Heart Rate Review of Systems ROS Statement: Those systems with pertinent positive or pertinent negative responses have been documented in the HPI. ROS Other: All systems not noted in ROS Statement are negative. Past Medical History Past Medical History: GERD/Reflux, Hypertension, Thyroid Disorder Additional Past Medical History / Comment(s): lupus. 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 History of Any Multi-Drug Resistant Organisms: None Reported Past Surgical History: Cholecystectomy, Orthopedic Surgery Past Anesthesia/Blood Transfusion Reactions: Motion Sickness, Postoperative Nausea & Vomiting (PONV) Past Psychological History: Anxiety Smoking Status: Current every day smoker Past Alcohol Use History: None Reported Past Drug Use History: None Reported - Past Family History Mother Family Medical History: Cancer Additional Family Medical History / Comment(s): lung cancer 2006 Father Family Medical History: Cancer Additional Family Medical History / Comment(s): skin cancer General Exam Limitations: no limitations Course Vital Signs 09/23/20 16:42 Temperature 98.7 F Pulse Rate 77 Respiratory 20 Rate Blood Pressure 152/78 O2 Sat by Pulse 99 Oximetry Medical Decision Making - Lab Data Result diagrams: 09/23/20 17:19 09/23/20 17:19 Lab Results 09/23/20 09/23/20 09/23/20 Range/Units 17:19 17:19 17:19 WBC 9.4 (3.8-10.6) k/uL RBC 4.12 (3.80-5.40) m/uL Hgb 12.6 (11.4-16.0) gm/dL Hct 38.0 (34.0-46.0) % MCV 92.1 (80.0-100.0) fL MCH 30.6 (25.0-35.0) pg MCHC 33.2 (31.0-37.0) g/dL RDW 14.0 (11.5-15.5) % Plt Count 413 (150-450) k/uL MPV 6.3 Neutrophils % 49 % Lymphocytes % 35 % Monocytes % 8 % Eosinophils % 6 % Basophils % 1 % Neutrophils # 4.6 (1.3-7.7) k/uL Lymphocytes # 3.3 (1.0-4.8) k/uL Monocytes # 0.8 (0-1.0) k/uL Eosinophils # 0.5 (0-0.7) k/uL Basophils # 0.1 (0-0.2) k/uL Sodium 138 (137-145) mmol/L Potassium 3.1 L (3.5-5.1) mmol/L Chloride 104 (98-107) mmol/L Carbon Dioxide 30 (22-30) mmol/L Anion Gap 4 mmol/L BUN 9 (7-17) mg/dL Creatinine 0.68 (0.52-1.04) mg/dL Est GFR (CKD-EPI)AfAm >90 (>60 ml/min/1.73 sqM) Est GFR (CKD-EPI)NonAf >90 (>60 ml/min/1.73 sqM) Glucose 91 (74-99) mg/dL Calcium 9.3 (8.4-10.2) mg/dL Troponin I (0.000-0.034) ng/mL NT-Pro-B Natriuret Pep pg/mL Coronavirus (PCR) Not Detected (Not Detectd) 09/23/20 09/23/20 Range/Units 17:19 17:19 WBC (3.8-10.6) k/uL RBC (3.80-5.40) m/uL Hgb (11.4-16.0) gm/dL Hct (34.0-46.0) % MCV (80.0-100.0) fL MCH (25.0-35.0) pg MCHC (31.0-37.0) g/dL RDW (11.5-15.5) % Plt Count (150-450) k/uL MPV Neutrophils % % Lymphocytes % % Monocytes % % Eosinophils % % Basophils % % Neutrophils # (1.3-7.7) k/uL Lymphocytes # (1.0-4.8) k/uL Monocytes # (0-1.0) k/uL Eosinophils # (0-0.7) k/uL Basophils # (0-0.2) k/uL Sodium (137-145) mmol/L Potassium (3.5-5.1) mmol/L Chloride (98-107) mmol/L Carbon Dioxide (22-30) mmol/L Anion Gap mmol/L BUN (7-17) mg/dL Creatinine (0.52-1.04) mg/dL Est GFR (CKD-EPI)AfAm (>60 ml/min/1.73 sqM) Est GFR (CKD-EPI)NonAf (>60 ml/min/1.73 sqM) Glucose (74-99) mg/dL Calcium (8.4-10.2) mg/dL Troponin I <0.012 (0.000-0.034) ng/mL NT-Pro-B Natriuret Pep 204 pg/mL Coronavirus (PCR) (Not Detectd) Disposition Clinical Impression: Chest pain Disposition: ADMITTED IP TO THIS [facility] Condition: Fair Referrals: Sona Sommer MD [Primary Care Provider] - 1-2 days
[2020-09-23 17:32] LABS: Basophils # (A) 0.1 k/uL (0-0.2); Basophils % (A) 1 %; Eosinophils # (A) 0.5 k/uL (0-0.7); Eosinophils % (A) 6 %; HGB 12.6 gm/dL (11.4-16.0); Lymphocytes # (A) 3.3 k/uL (1.0-4.8); Lymphocytes % (A) 35 %; MCH 30.6 pg (25.0-35.0); MCHC 33.2 g/dL (31.0-37.0); MCV 92.1 fL (80.0-100.0); Mean Platelet Volume 6.3; Monocytes # (A) 0.8 k/uL (0-1.0); Monocytes % (A) 8 %; Neutrophils # (A) 4.6 k/uL (1.3-7.7); Neutrophils % (A) 49 %; Platelet Count 413 k/uL (150-450); RBC 4.12 m/uL (3.80-5.40); WBC 9.4 k/uL (3.8-10.6)
[2020-09-23 17:48] LABS: African American GFR (CKD) >90 (>60 ml/min/1.73 sqM); Anion Gap 4 mmol/L; Blood Urea Nitrogen 9 mg/dL (7-17); Calcium 9.3 mg/dL (8.4-10.2); Carbon Dioxide 30 mmol/L (22-30); Chloride 104 mmol/L (98-107); Glucose 91 mg/dL (74-99); Non-African American GFR(CKD) >90 (>60 ml/min/1.73 sqM); Potassium 3.1 mmol/L (3.5-5.1); Sodium 138 mmol/L (137-145)
--- NOTE | 2020-09-23 18:26 | XR ---
EXAMINATION TYPE: XR chest 1V portable DATE OF EXAM: 09/23/2020 COMPARISON: 08/29/2020 HISTORY: Dyspnea. TECHNIQUE: Single frontal view of the chest is obtained. FINDINGS: There is no focal air space opacity, pleural effusion, or pneumothorax seen. The cardiac silhouette size is within normal limits. The osseous structures are intact. IMPRESSION: No acute process.
[2020-09-23] MEDS ORDERED: POTASSIUM CHLORIDE ER 20 MEQ TAB.ER PO STA (18:35)
[2020-09-23] MEDS ORDERED: ASPIRIN 81 MG PO STA (18:41)
[2020-09-23] MEDS ORDERED: NITROGLYCERIN SL TABS 0.4 MG TAB SUBLINGUAL PRN (18:42)
[2020-09-23] MEDS ORDERED: ASPIRIN-ACET-CAFF 250-250-65MG 1 EACH TAB PO PRN (20:25)
[2020-09-23] MEDS ORDERED: ONDANSETRON 4 MG/2 ML VIAL IVP PRN (20:26)
[2020-09-23] MEDS ORDERED: ACETAMINOPHEN TAB 325 MG TAB PO PRN (20:26)
[2020-09-23] MEDS: PANTOPRAZOLE 40 MG TABLET PO SCH (20:49)
[2020-09-23] MEDS: LEVOTHYROXINE 50 MCG TAB PO SCH (20:51)
[2020-09-23] MEDS ORDERED: amLODIPine 5 MG TAB PO SCH (21:00)
[2020-09-23] MEDS ORDERED: ESCITALOPRAM 10 MG TAB PO SCH (21:00)
[2020-09-23] MEDS ORDERED: METOPROLOL TARTRATE 25 MG TAB PO SCH (21:00)
[2020-09-24] MEDS: LEVOTHYROXINE 50 MCG TAB PO SCH (05:47)
[2020-09-24 07:37] VITALS: BP 111/59; PULSE 76; RESP 18; TEMP 97.8
[2020-09-24] MEDS: PANTOPRAZOLE 40 MG TABLET PO SCH (08:23)
[2020-09-24] MEDS ORDERED: LOSARTAN 50 MG TAB PO SCH (09:00)
[2020-09-24] MEDS ORDERED: ASPIRIN 81 MG PO SCH (09:00)
[2020-09-24] MEDS ORDERED: ASPIRIN 325 MG TAB PO SCH (09:00)
--- NOTE | 2020-09-24 09:30 | P.CRDCN ---
History of Present Illness History of present illness: HISTORY OF PRESENTING ILLNESS This is a pleasant 49-year-old female past medical history significant for hypertension, nicotine dependence. She follows in the office with Dr. Sawyer. We have been asked to see in consultation for chest pain. Patient is seen and examined at bedside, no acute distress. Patient presents to the hospital complaining of bilateral lower extremity edema, and constant pressure chest pain for 3 days. Located substernal. Pain is nonradiating, nonexertional. Chest pain worsens with deep breath. Associated exertional shortness of breath. She does not endorse anything that makes the pain better. Denies nausea, palpitations, fatigue, weakness, lightheadedness, syncope. Denies symptoms of orthopnea or PND. She did show a picture on her phone of her lower extremities swollen. Denies history of diabetes, VT, or stroke. She states she has a strong family history of CAD, her father had a CABG in his 30s. Current cardiac medications include metoprolol titrate 25 mg nightly, Lasix 20 mg daily, amlodipine 5 mg nightly. She states she is compliant with her medication. Continues to smoke 1ppd. EKG reveals sinus rhythm, heart rate 65, no significant STT wave abnormalities. Patient underwent stress echo on 07/02/2020 in the office which revealed no evidence of ischemia. She also underwent a treadmill exercise stress test on 06/18/2020 which also revealed no evidence of reversible ischemia. Echocardiogram in 06/14/2020 revealed an EF of 55-60%, mild mitral regurgitation, mild tricuspid regurgitation, mildly increased pulmonary artery systolic pressure 35 mmHg. Telemetry tracings indicate sinus mechanism HR 48-60s Chest xray no active cardiopulmonary disease. Laboratory reviewed, troponin negative 3, serum creatinine 0.68, sodium 138, potassium 3.1, proBNP 204, COVID-19 negative, CBC unremarkable. REVIEW OF SYSTEMS At the time of my exam: CONSTITUTIONAL: Denies fever or chills. CARDIOVASCULAR: +shortness of breath +chest pressure Denies orthopnea, PND or palpitations. RESPIRATORY: Denies cough. GASTROINTESTINAL: Denies abdominal pain, diarrhea, constipation, nausea or vomiting. MUSCULOSKELETAL: Denies myalgias. NEUROLOGIC: Denies numbness, tingling, headacbe or weakness. ENDOCRINE: Denies fatigue, weight change, polydipsia or polyurina. GENITOURINARY: Denies burning, hematuria or urgency with micturation. HEMATOLOGIC: Denies history of anemia or bleeding. PHYSICAL EXAMINATION Blood pressure 111/59 heart rate 76 afebrile and maintaining oxygen saturation 97% on room air. CONSTITUTIONAL: No apparent distress. HEENT: Head is normocephalic. Pupils are equal, round. Sclerae anicteric. Mucous membranes of the mouth are moist. No JVD. No carotid bruit. CHEST EXAMINATION: Lungs are clear to auscultation. No chest wall tenderness is noted on palpation or with deep breathing. HEART EXAMINATION: Regular rate and rhythm. S1, S2 heard. No murmurs, gallops or rub. ABDOMEN: Soft, nontender. Positive bowel sounds. EXTREMITIES: 2+ peripheral pulses, no lower extremity edema and no calf tenderness. SKIN: intact NEUROLOGIC EXAMINATION: Patient is awake, alert and oriented x3. ASSESSMENT Chest pain, atypical acute coronary syndrome has been ruled out. Recent negative stress echo in the office on 07/02/2020. Exertional shortness of breath Hypertension Intermittent bilateral lower extremity edema - Currently no LE edema on exam. Could be due to amlodipine Nicotine dependence PLAN An acute coronary event has been ruled out with no EKG evidence of ischemia and negative cardiac enzymes. Repeat EKG this morning- sinus bradycardia, heart rate 48, no significant STT wave abnormalities. Will stop amlodipine, switch to losartan Obtain lipid panel Obtain D-dimer, if positive recommend to proceed with CT chest. Patient with allergy to Contrast, would need to be pre-medicated. Obtain LE dopplers Smoking cessation discussed and highly recommended. Follow up with Dr. Sawyer Thank you kindly for this consultation. Nurse Practitioner note has been reviewed, I agree with a documented findings and plan of care. Patient was seen and examined. Past Medical History Past Medical History: GERD/Reflux, Hypertension, Thyroid Disorder Additional Past Medical History / Comment(s): lupus. 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 History of Any Multi-Drug Resistant Organisms: None Reported Past Surgical History: Cholecystectomy, Orthopedic Surgery Past Anesthesia/Blood Transfusion Reactions: Motion Sickness, Postoperative Nausea & Vomiting (PONV) Past Psychological History: Anxiety Smoking Status: Current every day smoker Past Alcohol Use History: None Reported Additional Past Alcohol Use History / Comment(s): smoker for 30+ years 1 ppd Past Drug Use History: None Reported - Past Family History Mother Family Medical History: Cancer Additional Family Medical History / Comment(s): lung cancer 2006 Father Family Medical History: Cancer Additional Family Medical History / Comment(s): skin cancer Medications and Allergies Home Medications Medication Instructions Recorded Confirmed Type Levothyroxine Sodium [Synthroid] 50 mcg PO DAILY 12/30/16 09/23/20 History Pantoprazole Sodium [Protonix] 40 mg PO BID 12/30/16 09/23/20 History Escitalopram [Lexapro] 10 mg PO HS 12/01/19 09/23/20 History Metoprolol Tartrate [Lopressor] 25 mg PO HS 08/29/20 09/23/20 History Opaihdl-Hpxd-Jawq [id number] 1 tab PO Q4HR PRN 09/23/20 09/23/20 History [Excedrin] Furosemide [Lasix] 20 mg PO DAILY 09/23/20 09/23/20 History Allergies Allergy/AdvReac Type Severity Reaction Status Date / Time Iodinated Contrast Media Allergy Anaphylaxis Verified 09/23/20 17:57 [Iodinated Contrast Media - IV Dye] shellfish derived [Shellfish] Allergy Anaphylaxis Verified 09/23/20 17:57 steroids AdvReac Rapid Uncoded 09/23/20 16:45 Heart Rate Physical Exam Vitals: Vital Signs Temp Pulse Pulse Resp BP BP Pulse Ox 09/24/20 07:55 97 09/24/20 07:00 97.8 F 76 18 111/59 97 09/24/20 02:00 60 17 09/24/20 01:40 97.6 F 53 L 16 105/62 97 09/23/20 20:00 98.3 F 60 17 113/81 98 09/23/20 16:42 98.7 F 77 20 152/78 99 Intake and Output 09/23/20 09/24/20 09/24/20 22:59 06:59 14:59 Other: Voiding Method Toilet Toilet # Voids 1 4 Weight 66.678 kg Results 09/23/20 17:19 09/23/20 17:19 Cardiac Enzymes 09/23/20 09/23/20 09/23/20 Range/Units 17:19 20:30 22:39 Troponin I <0.012 <0.012 <0.012 (0.000-0.034) ng/mL CBC 09/23/20 Range/Units 17:19 WBC 9.4 (3.8-10.6) k/uL RBC 4.12 (3.80-5.40) m/uL Hgb 12.6 (11.4-16.0) gm/dL Hct 38.0 (34.0-46.0) % Plt Count 413 (150-450) k/uL Comprehensive Metabolic Panel 09/23/20 Range/Units 17:19 Sodium 138 (137-145) mmol/L Potassium 3.1 L (3.5-5.1) mmol/L Chloride 104 (98-107) mmol/L Carbon Dioxide 30 (22-30) mmol/L BUN 9 (7-17) mg/dL Creatinine 0.68 (0.52-1.04) mg/dL Glucose 91 (74-99) mg/dL Calcium 9.3 (8.4-10.2) mg/dL Current Medications Generic Name Dose Route Start Last Admin Trade Name Freq PRN Reason Stop Dose Admin Acetaminophen 650 mg 09/23/20 20:26 Acetaminophen Tab 325 Mg Tab PO Q6HR PRN Fever and/ or Pain Acetaminophen/Aspirin/Caffeine 1 each 09/23/20 20:25 Mmuzzeg-Csrl-Auwg [id number] 1 Each Tab PO Q4HR PRN Headache Aspirin 81 mg 09/24/20 09:00 09/24/20 08:23 Aspirin 81 Mg PO 81 mg DAILY RAFFAELE Administration Escitalopram Oxalate 10 mg 09/23/20 21:00 09/23/20 21:04 Escitalopram 10 Mg Tab PO 10 mg HS RAFFAELE Administration Levothyroxine Sodium 50 mcg 09/23/20 20:30 09/24/20 05:47 Levothyroxine 50 Mcg Tab PO 50 mcg 0630 RAFFAELE Administration Losartan Potassium 50 mg 09/24/20 09:00 09/24/20 08:23 Losartan 50 Mg Tab PO 50 mg DAILY RAFFAELE Administration Metoprolol Tartrate 25 mg 09/23/20 21:00 09/23/20 20:49 Metoprolol Tartrate 25 Mg Tab PO 25 mg HS RAFFAELE Administration Nitroglycerin 0.4 mg 09/23/20 18:42 Nitroglycerin Sl Tabs 0.4 Mg Tab SUBLINGUAL Q5M PRN Chest Pain Ondansetron HCl 4 mg 09/23/20 20:26 Ondansetron 4 Mg/2 Ml Vial IVP Q6HR PRN Nausea And Vomiting Pantoprazole Sodium 40 mg 09/23/20 21:00 09/24/20 08:23 Pantoprazole 40 Mg Tablet PO 40 mg BID RAFFAELE Administration Intake and Output 09/23/20 09/24/20 09/24/20 22:59 06:59 14:59 Other: Voiding Method Toilet Toilet # Voids 1 4 Weight 66.678 kg 09/23/20 17:19 09/23/20 17:19
--- NOTE | 2020-09-24 09:51 | US ---
EXAMINATION TYPE: US venous doppler duplex LE BI DATE OF EXAM: 09/24/2020 8:48 AM COMPARISON: 12/15/2019 CLINICAL HISTORY: lower extremity edema. SIDE PERFORMED: Bilateral TECHNIQUE: The lower extremity deep venous system is examined utilizing real time linear array sonog aashish with graded compression, doppler sonography and color-flow sonography. VESSELS IMAGED: Common Femoral Vein Deep Femoral Vein Greater Saphenous Vein * Femoral Vein Popliteal Vein Small Saphenous Vein * Proximal Calf Veins (* superficial vessels) Right Leg: Negative for DVT Left Leg: Negative for DVT IMPRESSION: 1. No evidence of deep venous thrombosis of the bilateral lower extremities.
[2020-09-24 11:16] LABS: Chol/HDL Ratio 4.22; LDL Cholesterol,Calculated 128.4 mg/dL (0.0-131.0); VLDL Calculation 19.6 mg/dL (5.00-40.00)
[2020-09-24 14:42] LABS: LDL Cholesterol,Calculated 141.4 mg/dL (0.0-131.0); VLDL Calculation 20.6 mg/dL (5.00-40.00)
--- NOTE | 2020-09-24 15:43 | P.HPIM ---
History of Present Illness 49-year-old female came in with main complaints of bilateral lower extremity edema probably secondary to amlodipine amlodipine is being discontinued at this time. Patient also comparing of substernal chest pain pressure-like sensation nonradiating nonexertional, worsens with deep breathing but the d-dimer is negative. Patient had recent stressors that was negative patient was evaluated by cardiology patient blood pressure is on the low normal side because of which amlodipine is being discontinued and patient was cleared for discharge be ruled out acute coronary syndromes. She was recommended to follow-up with her [place] closely. Patient was hypokalemic potassium was replaced. Review of Systems REVIEW OF SYSTEMS: CONSTITUTIONAL: No fever, no malaise, no fatigue. HEENT: No recent visual problems or hearing problems. Denied any sore throat. CARDIOVASCULAR: As mentioned in HPI PULMONARY: No shortness of breath, no cough, no hemoptysis. GASTROINTESTINAL: No diarrhea, no nausea, no vomiting, no abdominal pain. NEUROLOGICAL: No headaches, no weakness, no numbness. HEMATOLOGICAL: Denies any bleeding or petechiae. GENITOURINARY: Denies any burning micturition, frequency, or urgency. MUSCULOSKELETAL/RHEUMATOLOGICAL: Denies any joint pain, swelling, or any muscle pain. ENDOCRINE: Denies any polyuria or polydipsia. The rest of the 14-point review of systems is negative. Past Medical History Past Medical History: GERD/Reflux, Hypertension, Thyroid Disorder Additional Past Medical History / Comment(s): lupus. 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 History of Any Multi-Drug Resistant Organisms: None Reported Past Surgical History: Cholecystectomy, Orthopedic Surgery Past Anesthesia/Blood Transfusion Reactions: Motion Sickness, Postoperative Nausea & Vomiting (PONV) Past Psychological History: Anxiety Smoking Status: Current every day smoker Past Alcohol Use History: None Reported Additional Past Alcohol Use History / Comment(s): smoker for 30+ years 1 ppd Past Drug Use History: None Reported - Past Family History Mother Family Medical History: Cancer Additional Family Medical History / Comment(s): lung cancer 2006 Father Family Medical History: Cancer Additional Family Medical History / Comment(s): skin cancer Medications and Allergies Home Medications Medication Instructions Recorded Confirmed Type Levothyroxine Sodium [Synthroid] 50 mcg PO DAILY 12/30/16 09/23/20 History Pantoprazole Sodium [Protonix] 40 mg PO BID 12/30/16 09/23/20 History Escitalopram [Lexapro] 10 mg PO HS 12/01/19 09/23/20 History Metoprolol Tartrate [Lopressor] 25 mg PO HS 08/29/20 09/23/20 History Gfzzctg-Ierv-Hhdd [id number] 1 tab PO Q4HR PRN 09/23/20 09/23/20 History [Excedrin] Furosemide [Lasix] 20 mg PO DAILY 09/23/20 09/23/20 History Allergies Allergy/AdvReac Type Severity Reaction Status Date / Time Iodinated Contrast Media Allergy Anaphylaxis Verified 09/23/20 17:57 [Iodinated Contrast Media - IV Dye] shellfish derived [Shellfish] Allergy Anaphylaxis Verified 09/23/20 17:57 steroids AdvReac Rapid Uncoded 09/23/20 16:45 Heart Rate Physical Exam Vitals: Vital Signs Temp Pulse Pulse Resp BP BP Pulse Ox 09/24/20 07:55 97 09/24/20 07:00 97.8 F 76 18 111/59 97 09/24/20 02:00 60 17 09/24/20 01:40 97.6 F 53 L 16 105/62 97 09/23/20 20:00 98.3 F 60 17 113/81 98 09/23/20 16:42 98.7 F 77 20 152/78 99 Intake and Output 09/24/20 09/24/20 09/24/20 06:59 14:59 22:59 Other: Voiding Method Toilet # Voids 4 PHYSICAL EXAMINATION: GENERAL: The patient is alert and oriented x3, not in any acute distress. Well developed, well nourished. HEENT: Pupils are round and equally reacting to light. EOMI. No scleral icterus. No conjunctival pallor. Normocephalic, atraumatic. No pharyngeal erythema. No thyromegaly. CARDIOVASCULAR: S1 and S2 present. No murmurs, rubs, or gallops. PULMONARY: Chest is clear to auscultation, no wheezing or crackles. ABDOMEN: Soft, nontender, nondistended, normoactive bowel sounds. No palpable organomegaly. MUSCULOSKELETAL: No joint swelling or deformity. EXTREMITIES: No cyanosis, clubbing, or pedal edema. NEUROLOGICAL: Gross neurological examination did not reveal any focal deficits. SKIN: No rashes. Results CBC & Chem 7: 05/23/21 17:19 09/23/20 17:19 Labs: Abnormal Lab Results - Last 24 Hours (Table) 09/23/20 09/24/20 Range/Units 17:19 08:44 Potassium 3.1 L (3.5-5.1) mmol/L Cholesterol 216 H (0-200) mg/dL LDL Cholesterol, Calc 141.4 H (0.0-131.0) mg/dL Thrombosis Risk Factor Assmnt - Choose All That Apply Each Factor Represents 1 point: Age 41-60 years, Obesity (BMI >25), Swollen legs (current) Thrombosis Risk Factor Assessment Total Risk Factor Score: 3 Thrombosis Risk Factor Assessment Level: Moderate Risk Assessment and Plan Plan: -Chest pressure: Ruled out acute causespatient has recent stress test cardiology evaluated the patient cleared for discharge. -Swelling of bilateral lower extremity secondary to calcium Blockers. Amlodipine is being discontinued patient was started on losartan. -Hypertension -Nicotine dependence: Counseling was provided -Depression continue with Lexapro -Hypothyroidism continue with levothyroxine Patient will be discharged today
--- NOTE | 2020-09-24 15:43 | P.DS ---
Providers Date of admission: 09/23/20 18:42 Attending physician: Olivier Sanchez Consults: 09/23/20 18:42 Consult Physician Urgent Consulting Provider: Boom Morales Consult Reason/Comments: chest pain Do you want consulting provider notified?: Yes Primary care physician: Sona Sommer MD Hospital Course: As mentioned in HPI Patient Condition at Discharge: Fair Plan - Discharge Summary Discharge Rx Participant: No New Discharge Prescriptions: Discontinued amLODIPine [Norvasc] 5 mg PO HS No Action Pantoprazole Sodium [Protonix] 40 mg PO BID Levothyroxine Sodium [Synthroid] 50 mcg PO DAILY Escitalopram [Lexapro] 10 mg PO HS Metoprolol Tartrate [Lopressor] 25 mg PO HS Rpaftcn-Obfz-Yjqe [id number] [Excedrin] 1 tab PO Q4HR PRN PRN Reason: Headache Furosemide [Lasix] 20 mg PO DAILY Discharge Medication List Levothyroxine Sodium [Synthroid] 50 mcg PO DAILY 12/30/16 [History] Pantoprazole Sodium [Protonix] 40 mg PO BID 12/30/16 [History] Escitalopram [Lexapro] 10 mg PO HS 12/01/19 [History] Metoprolol Tartrate [Lopressor] 25 mg PO HS 08/29/20 [History] Lwalowp-Fiva-Aviu [id number] [Excedrin] 1 tab PO Q4HR PRN 09/23/20 [History] Furosemide [Lasix] 20 mg PO DAILY 09/23/20 [History] Follow up Appointment(s)/Referral(s): Maritza Sawyer MD [STAFF PHYSICIAN] - 10/08/20 1:45 pm Sona Sommer MD [Primary Care Provider] - 3 Days Patient Instructions/Handouts: Chest Pain (DC) Discharge Disposition: HOME SELF-CARE
== END 2020-09-24 11:30 | disposition home or self-care (01) ==
LOC: EC 16:40 → 6NMEDSUR 18:42
PROVIDERS: ADMIT Hospitalist; ATTEND Hospitalist
DX: R07.2 Precordial pain (principal); M79.89 Other specified soft tissue disorders; R60.0 Localized edema; T46.1X5A Adverse effect of calcium-channel blockers, initial encounter; E03.9 Hypothyroidism, unspecified; R06.09 Other forms of dyspnea; Z20.822 Contact with and (suspected) exposure to COVID-19; I10 Essential (primary) hypertension; E87.6 Hypokalemia; R11.2 Nausea with vomiting, unspecified; K21.9 Gastro-esophageal reflux disease without esophagitis; F32.9 Major depressive disorder, single episode, unspecified; F41.9 Anxiety disorder, unspecified; M32.9 Systemic lupus erythematosus, unspecified; F17.210 Nicotine dependence, cigarettes, uncomplicated; Z79.890 Hormone replacement therapy; Z79.899 Other long term (current) drug therapy; Z91.041 Radiographic dye allergy status; Z91.013 Allergy to seafood; Z88.8 Allergy status to other drugs, medicaments and biological substances; Z90.49 Acquired absence of other specified parts of digestive tract; Z80.8 Family history of malignant neoplasm of other organs or systems; Z80.1 Family history of malignant neoplasm of trachea, bronchus and lung; Z82.49 Family history of ischemic heart disease and other diseases of the circulatory system
CPT/HCPCS: 99285; 36415; 94760; 93005; 85379; 83880; 80061; 80048; 84484; 85025; 87635; 71045; 93970; G0378 ×2

== ENCOUNTER → 2020-10-23 | Outpatient (CLI) | payer BC, OTHER ==
[2020-10-23 21:25] LABS: Anti-Smith Ab Interp POSITIVE (NEGATIVE)
[2020-10-24 00:38] LABS: Protein, Total 6.5 g/dL (6.2-8.2)
[2020-10-24 02:26] LABS: Hepatitis C IgG Antibody Non-Reactive (Non-Reactive)
[2020-10-25 09:37] LABS: Gamma Globulin 0.82 g/dL (0.70-1.50)
== END | disposition home or self-care (01) ==
LOC: LABWHC1 13:12
PROVIDERS: ATTEND Psychiatry & Neurology Sleep Medicine
DX: G62.9 Polyneuropathy, unspecified (principal)
CPT/HCPCS: 36415; 82607; 84165; 84425; 84439; 84443; 86038; 86039; 86235; 86618; 86780; 86803

== ENCOUNTER → 2020-11-16 | Outpatient (CLI) | payer BC, OTHER ==
--- NOTE | 2020-11-17 14:15 | US ---
EXAMINATION TYPE: US kidneys/renal and bladder DATE OF EXAM: 11/16/2020 COMPARISON: NONE CLINICAL HISTORY: R34 decreased urine output. EXAM MEASUREMENTS: Right Kidney: 8.8 x 3.8 x 4.1 cm Left Kidney: 10.1 x 4.8 x 4.3 cm Right Kidney: small in size when compared to left kidney Left Kidney: wnl Bladder: not fully distended, appears wnl as seen Bilateral Jets seen: no Normal Post Void Residual: yes IMPRESSION: 1. Normal renal ultrasound
== END | disposition home or self-care (01) ==
LOC: RADUSWWP 16:17
PROVIDERS: ATTEND Family Medicine
DX: R39.12 Poor urinary stream (principal)
CPT/HCPCS: 76770

== ENCOUNTER → 2020-12-05 | Outpatient (CLI) | payer OTHER ==
--- NOTE | 2020-12-06 04:59 | MR ---
EXAMINATION TYPE: MR knee RT wo con DATE OF EXAM: 12/05/2020 COMPARISON: None HISTORY: Right inner and outer knee pain, pain behind knee, painful kneecap, locking, and swelling fo r 2 months. Multiplanar multiecho imaging of the right knee without contrast. There is knee joint effusion. The anterior and posterior cruciate ligaments are intact. There is abno rmal increased signal in the proximal tibia involving the lateral condyle and the intercondylar anter ior tibia. This is consistent with a large bone bruise. No fracture line seen. There is a similar 2 x 1.5 cm area of edema in the lateral femoral condyle on the lateral aspect. The collateral ligaments appear intact. The medial meniscus appears intact. There is mild thinning of the anterior horn of the lateral menisc us. There is small horizontal defect through the inferior aspect of the lateral meniscus on the coron al images. There is a popliteal cyst that measures 3.5 x 1.5 cm. IMPRESSION: Knee joint effusion. Popliteal cyst. Large areas of bone bruise involving the proximal tibia on the lateral aspect and also the lateral as pect lateral femoral condyle. No fracture seen. No evidence of ligamentous tear. There is some degene rative thinning of the anterior horn of the lateral meniscus. There is small horizontal tear of the a nterior horn lateral meniscus.
== END | disposition home or self-care (01) ==
LOC: RADMRIMAIN 14:39
PROVIDERS: ATTEND Orthopaedic Surgery
DX: M71.21 Synovial cyst of popliteal space [Baker], right knee (principal); M23.341 Other meniscus derangements, anterior horn of lateral meniscus, right knee

== ENCOUNTER → 2021-01-08 | Outpatient (CLI) | payer OTHER ==
[2021-01-08 16:29] LABS: Basophils # (A) 0.1 k/uL (0-0.2); Basophils % (A) 1 %; Eosinophils # (A) 0.3 k/uL (0-0.7); Eosinophils % (A) 4 %; HCT 38.4 % (34.0-46.0); HGB 12.9 gm/dL (11.4-16.0); Lymphocytes # (A) 2.2 k/uL (1.0-4.8); Lymphocytes % (A) 30 %; MCH 31.1 pg (25.0-35.0); MCHC 33.6 g/dL (31.0-37.0); MCV 92.6 fL (80.0-100.0); Mean Platelet Volume 6.4; Monocytes # (A) 0.6 k/uL (0-1.0); Monocytes % (A) 7 %; Neutrophils % (A) 54 %; Platelet Count 322 k/uL (150-450); RBC 4.14 m/uL (3.80-5.40); RDW 13.5 % (11.5-15.5); WBC 7.4 k/uL (3.8-10.6)
[2021-01-08 16:36] LABS: Potassium 4.3 mmol/L (3.5-5.1)
== END | disposition home or self-care (01) ==
LOC: LABPAT 13:08
PROVIDERS: ATTEND Orthopaedic Surgery
DX: M23.2 Derangement of meniscus due to old tear or injury (principal)
CPT/HCPCS: 36415; 80051; 85025

== ENCOUNTER 2021-01-17 08:45 | Day surgery (SDC) | payer OTHER ==
[2021-01-15 11:14] VITALS: BMI 23.8
--- NOTE | 2021-01-16 19:35 | HP ---
HISTORY AND PHYSICAL DATE OF SURGERY: 01/17/2021 Padmini Noble is a 50-year-old patient seen with progressive right knee pain. We discussed options for treatment. She elected to proceed with arthroscopy. Consent was obtained. PAST MEDICAL HISTORY: Hypothyroidism, gastroesophageal reflux disease. PAST SURGICAL HISTORY: Cholecystectomy, knee arthroscopy. MEDICATIONS: Protonix, Adderall, levothyroxine. ALLERGIES: IVP DYE AND STEROIDS. SOCIAL HISTORY: She smokes one pack of cigarettes daily. PHYSICAL EVALUATION OF THE RIGHT KNEE: Her range of motion is negative 2/3 to 115. Mild effusion. Tenderness, medial joint line. Tenderness, lateral joint line. Positive medial Milind's. Positive lateral Milind's. Ligaments stable. Hip rotation without pain. Distal neurovascular exam intact. IMAGING: Right knee radiographs revealed mild osteoarthritis. MRI right knee revealed lateral meniscal tear, bone contusion and effusion. IMPRESSION: 1. Internal derangement of right knee with lateral meniscal tear. 2. Hypothyroidism. 3. Gastroesophageal reflux disease. PLAN: Right knee arthroscopy with partial meniscectomy and debridement. MMODL / IJN: [id number] /
[~2021-01-17 08:45] MED LIST changes: -DEXAMETHASONE SOD PHOSPHATE 10 MG/ML 1 ML VIAL IV ONE; +DEXAMETHASONE SOD PHOSPHATE 4 MG/ML 1 ML VIAL IV ONE; -LACTATED RINGERS 1,000 ML IV SCH
[2021-01-17] MEDS: LACTATED RINGERS 1,000 ML IV SCH ×2 (09:19→15:56)
[2021-01-17] MEDS ORDERED: SCOPOLAMINE 1.5MG/72HR PATCH TRANSDERM ONE (09:19)
[2021-01-17] MEDS ORDERED: LIDOCAINE 1% INJ 10MG/ML (20 ML MDV) ONE (10:18)
[2021-01-17] MEDS ORDERED: PROPOFOL 10 MG/ML 20 ML VIAL IV ONE (10:18)
[2021-01-17] MEDS ORDERED: fentaNYL (PF) 50 MCG/ML 2 ML AMP ONE (10:18)
[2021-01-17] MEDS ORDERED: MIDAZOLAM 2 MG/2 ML VIAL ONE (10:18)
[2021-01-17] MEDS ORDERED: GLYCOPYRROLATE 0.2 MG/ML 2 ML VIAL ONE (10:18)
[2021-01-17] MEDS ORDERED: KETOROLAC 15 MG/ML 1 ML VIAL ONE (10:18)
[2021-01-17] MEDS ORDERED: BUPIVACAINE (PF) 0.25% 30 ML VIAL INTRAARTIC ONE (10:27)
--- NOTE | 2021-01-17 11:05 | P.OP ---
Date of Procedure: 01/17/21 Preoperative Diagnosis: Internal derangement right knee Postoperative Diagnosis: 1. Tear lateral meniscus right knee 2. Grade 2 chondromalacia medial femoral condyle right knee 3. Reactive synovitis medial, lateral and suprapatellar compartments right knee Procedure(s) Performed: 1. Arthroscopic partial lateral meniscectomy right knee 2. Arthroscopic chondroplasty medial femoral condyle right knee 3. Arthroscopic partial synovectomy medial, lateral and suprapatellar compartments right knee Anesthesia: JUNAIDA, local Surgeon: Jerrod Jarvis Estimated Blood Loss (ml): 6 Pathology: none sent Condition: stable Disposition: PACU Indications for Procedure: 50-year-old patient seen with progressive right knee pain. After treatment options were discussed, she elected to proceed with arthroscopy. Operative Findings: See description of procedure Description of Procedure: Patient was taken to the operative suite. Patient underwent a general anesthetic by the department of anesthesia. Patient was given preoperative antibiotics. The right lower extremity was placed in a well-padded arthroscopic leg lazar. The right leg was prepped and draped in the normal sterile orthopedic fashion. A lateral parapatellar and suprapatellar incision was made. Trochars were inserted. Arthroscopy was initiated. Suprapatellar pouch revealed diffuse thick reactive synovitis. The patellofemoral joint appeared to articulate congruently. There was grade 1 chondromalacia with no tears present. The scope was guided into the medial gutter. No loose bodies or plica were identified The scope was then guided into the medial compartment. A medial parapatellar incision was made. Trocar inserted followed by probe. The medial meniscus was probed and found to be stable. There was an area of grade 2 chondromalacia medial femoral condyle with some large osteochondral flap tears. There was thick reactive synovitis anteriorly. I performed a chondroplasty of the medial femoral condyle getting down to stable osteochondral tissue. I performed a partial synovectomy decompressing the thick reactive synovitis. The shaver was removed. The residual osteochondral surface appeared stable. There was good decompression of the synovitis. Scope and probe were then guided into the intercondylar notch. Cruciates were identified, probed and found to be stable. The scope and probe were then guided into lateral compartment. There was a large anterior horn lateral meniscal tear seen immediately. I introduced a motorized shaver and performed a partial lateral meniscectomy getting down to stable meniscal tissue. I now could visualize the posterior horn of the lateral meniscus was also a radial tear there as well. There were grade 1 chondromalacia changes lateral compartment as well as some thick reactive synovitis anteriorly. I now performed a partial lateral meniscectomy involving the posterior horn getting down to stable meniscal tissue. I now introduced a motorized shaver and debrided out the piecemeal fragments of meniscus and performed a partial synovectomy decompressing the thick reactive synovitis. The shaver was removed. I now probed the residual meniscus was found to be stable. There was good decompression of the synovitis. The scope was in guided back into the suprapatellar compartment. I introduced a motorized shaver into the super compartment. I debrided some piecemeal fragments of meniscus I encountered. I performed a partial synovectomy. The shaver was removed. I took one more look around the entire knee, no residual debris. Instruments were now removed from the joint. The joint was infiltrated with .25% Marcaine. Steri-Strips were applied to the portal sites. Sterile dressings were applied. The patient was placed into a GABBIE hose. No tourniquet was utilized. The patient was awakened, transferred to a bed and taken to recovery stable satisfactory condition.
[2021-01-17] MEDS ORDERED: LACTATED RINGERS 1,000 ML IV ONE (11:51)
[2021-01-17] MEDS ORDERED: CITRIC ACID-SODIUM CITRATE 15 ML CUP PO STA (12:12)
[2021-01-17] MEDS ORDERED: LABETALOL 5 MG/ML VIAL MDV IV ONE ×2 (12:21→12:37)
[2021-01-17] MEDS ORDERED: NITROGLYCERIN SL TABS 0.4 MG TAB SUBLINGUAL ONE ×2 (12:46→12:50)
[2021-01-17] MEDS ORDERED: HYDROcodone/APAP 5-325MG 1 EACH TAB PO PRN (13:34)
[2021-01-17] MEDS ORDERED: diphenhydrAMINE 50 MG/ML 1 ML VIAL ONE (13:57)
[2021-01-17] MEDS ORDERED: diphenhydrAMINE 50 MG/ML 1 ML VIAL IVP ONE (13:59)
[2021-01-17] MEDS ORDERED: ASPIRIN 81 MG PO STA (14:16)
[2021-01-17] MEDS ORDERED: ACETAMINOPHEN TAB 325 MG TAB PO PRN (15:21)
[2021-01-17] MEDS ORDERED: NALOXONE 0.4 MG/ML 1 ML VIAL IV PRN (15:21)
[2021-01-17] MEDS ORDERED: ASPIRIN-ACET-CAFF 250-250-65MG 1 EACH TAB PO PRN (15:22)
[2021-01-17] MEDS ORDERED: NITROGLYCERIN SL TABS 0.4 MG TAB SUBLINGUAL PRN (15:23)
--- NOTE | 2021-01-17 15:24 | P.HPIM ---
History of Present Illness H&P Date: 01/17/21 Chief Complaint: Chest pain 50 year old woman with history of OA, HTN, HLD, GERD presented for elective total knee arthroscopy then developed chest pain while in PACU recovery. Pt has been worked up multiple times for chest pain with most recent stress test in 06/2020 which was negative for inducible ischemia on dobutamine stress echo. She follows with cardiology and was recently recommended to take pepcid for her pain, with consideration of holter monitoring for her history of palpitations. At the time of evaluation, patient's chest pain was significantly improved after having rec'd nitro x 1, labetalol x 2, and norco. Her ROS is neg for f/c, n/v, cough, dyspnea, syncope, abd pain, diarrhea, constipation, numbness/weakness of extremities. Upon my evaluation, patient was afebrile, 121/72, HR 62, 97% on room air. Initial trop negative. EKG appears non-ischemic. 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 Arrythmia. Rt knee pain History of Any Multi-Drug Resistant Organisms: None Reported Past Surgical History: Cholecystectomy, Orthopedic Surgery Additional Past Surgical History / Comment(s): Rt knee scope 12/2019, Lt knee scope. Past Anesthesia/Blood Transfusion Reactions: Family History of Problems w/ Anesthesia, Motion Sickness, Postoperative Nausea & Vomiting (PONV) Additional Past Anesthesia/Blood Transfusion Reaction / Comment(s): Mother had PONV Past Psychological History: Anxiety Smoking Status: Current every day smoker Past Alcohol Use History: None Reported Additional Past Alcohol Use History / Comment(s): smoker for 30+ years, 1 ppd, now down to 1/2 ppd Past Drug Use History: None Reported - Past Family History Mother Family Medical History: Cancer Additional Family Medical History / Comment(s): lung cancer 2006 Father Family Medical History: Cancer Additional Family Medical History / Comment(s): skin cancer Medications and Allergies Home Medications Medication Instructions Recorded Confirmed Type Levothyroxine Sodium [Synthroid] 50 mcg PO DAILY 12/30/16 01/17/21 History Pantoprazole Sodium [Protonix] 40 mg PO BID 12/30/16 01/17/21 History Escitalopram [Lexapro] 10 mg PO HS 12/01/19 01/17/21 History Metoprolol Tartrate [Lopressor] 25 mg PO HS 08/29/20 01/17/21 History [id number]-[id number]-[id number] [id number] 1 tab PO Q4HR PRN 09/23/20 01/17/21 History [Excedrin] Atorvastatin [Lipitor] 20 mg PO HS 01/15/21 01/17/21 History Ibuprofen [Advil] 600 mg PO Q8HR PRN 01/15/21 01/17/21 History HYDROcodone/APAP 5-325MG [[place] 1 tab PO Q6HR PRN #21 tab 01/17/21 Rx 5-325] Allergies Allergy/AdvReac Type Severity Reaction Status Date / Time Iodinated Contrast Media Allergy Anaphylaxis Verified 01/17/21 08:58 [Iodinated Contrast Media - IV Dye] shellfish derived [Shellfish] Allergy Anaphylaxis Verified 01/17/21 08:58 hydrocodone AdvReac Itching Verified 01/17/21 08:58 steroids AdvReac Rapid Uncoded 01/17/21 08:58 Heart Rate Physical Exam Osteopathic Statement: *. No significant issues noted on an osteopathic structural exam other than those noted in the History and Physical/Consult. Vitals: Vital Signs Temp Pulse Resp BP Pulse Ox 01/17/21 15:05 14 98 01/17/21 14:58 97.8 F 51 L 14 130/78 97 01/17/21 14:26 62 16 121/72 97 01/17/21 13:48 65 16 114/77 94 L 01/17/21 13:25 59 L 16 132/79 97 01/17/21 13:05 62 16 125/80 97 01/17/21 12:53 66 16 133/81 96 01/17/21 12:48 68 16 143/83 95 01/17/21 12:24 74 16 140/92 95 01/17/21 12:08 62 16 165/102 97 01/17/21 11:51 64 16 161/92 92 L 01/17/21 11:30 61 14 139/87 96 01/17/21 11:15 65 16 135/82 99 01/17/21 11:01 96.8 F L 57 L 12 108/67 97 01/17/21 09:04 97.7 F 66 18 170/74 97 Intake and Output 01/17/21 01/17/21 01/17/21 06:59 14:59 22:59 Intake Total 1050 Output Total 6 Balance 1044 Intake: IV 1050 Output: Estimated Blood Loss 6 Other: Weight 63.5 kg 63.5 kg Gen: awake, alert HEENT: normocephalic, atraumatic, good hearing acuity, moist mucous membranes Resp: good air exchange, breathing comfortably with no accessory muscle use, clear to auscultation bilaterally CVS: good distal perfusion x 4, regular rate and rhythm without murmurs GI: soft, NTTP, ND : no SPT, no CVAT, franks catheter not present MSK: no pitting edema, no clubbing Neuro: non-focal, moving all extremities Psych: cooperative, euthymic mood Thrombosis Risk Factor Assmnt - Choose All That Apply Each Factor Represents 1 point: Age 41-60 years, Minor surgery planned Each Risk Factor Represents 2 Points: Arthroscopic surgery Thrombosis Risk Factor Assessment Total Risk Factor Score: 4 Thrombosis Risk Factor Assessment Level: Moderate Risk Assessment and Plan Assessment: Atypical chest pain -Admit to observation, telemetry -Cardiology consult -Trend troponins -Aspirin loaded, aspirin daily -Continue home statin but increase to 40mg qHS, BP medication -No indication for Plavix or heparin drip at this time -Nitro PRN for chest pain Hypertension Hyperlipidemia Hypothyroidism GERD Osteoarthritis -Home medications reviewed and reconciled Patient is a full code
[2021-01-17 15:54] LABS: Basophils # (A) 0.1 k/uL (0-0.2); Basophils % (A) 1 %; Eosinophils # (A) 0.2 k/uL (0-0.7); Eosinophils % (A) 3 %; HCT 37.5 % (34.0-46.0); HGB 12.8 gm/dL (11.4-16.0); Lymphocytes # (A) 2.1 k/uL (1.0-4.8); Lymphocytes % (A) 22 %; MCH 31.7 pg (25.0-35.0); MCHC 34.1 g/dL (31.0-37.0); MCV 92.9 fL (80.0-100.0); Mean Platelet Volume 6.7; Monocytes # (A) 0.7 k/uL (0-1.0); Monocytes % (A) 7 %; Neutrophils # (A) 6.3 k/uL (1.3-7.7); Neutrophils % (A) 67 %; Platelet Count 326 k/uL (150-450); RBC 4.04 m/uL (3.80-5.40); WBC 9.5 k/uL (3.8-10.6)
[2021-01-17 15:59] LABS: Prothrombin Time 10.6 sec (9.0-12.0)
[2021-01-17 16:02] LABS: African American GFR (CKD) >90 (>60 ml/min/1.73 sqM); Anion Gap 6 mmol/L; Blood Urea Nitrogen 10 mg/dL (7-17); Calcium 8.8 mg/dL (8.4-10.2); Carbon Dioxide 26 mmol/L (22-30); Chloride 105 mmol/L (98-107); Glucose 108 mg/dL (74-99); Magnesium 1.8 mg/dL (1.6-2.3); Non-African American GFR(CKD) >90 (>60 ml/min/1.73 sqM); Potassium 3.7 mmol/L (3.5-5.1); Sodium 137 mmol/L (137-145)
[2021-01-17] MEDS: PANTOPRAZOLE 40 MG TABLET PO SCH (17:28)
[2021-01-17] MEDS ORDERED: ESCITALOPRAM 10 MG TAB PO SCH (21:00)
[2021-01-17] MEDS ORDERED: ATORVASTATIN 40 MG TAB PO SCH (21:00)
[2021-01-17] MEDS ORDERED: METOPROLOL TARTRATE 25 MG TAB PO SCH (21:00)
[2021-01-17] MEDS ORDERED: diphenhydrAMINE 25 MG CAP PO PRN (21:43)
[2021-01-18 01:55] VITALS: TEMP 97.8
[2021-01-18 06:21] LABS: African American GFR (CKD) >90 (>60 ml/min/1.73 sqM); Anion Gap 3 mmol/L; Blood Urea Nitrogen 9 mg/dL (7-17); Carbon Dioxide 30 mmol/L (22-30); Chloride 104 mmol/L (98-107); Glucose 99 mg/dL (74-99); Magnesium 1.9 mg/dL (1.6-2.3); Non-African American GFR(CKD) >90 (>60 ml/min/1.73 sqM); Potassium 4.4 mmol/L (3.5-5.1); Sodium 137 mmol/L (137-145)
[2021-01-18] MEDS ORDERED: LEVOTHYROXINE 50 MCG TAB PO SCH (06:30)
[2021-01-18] MEDS ORDERED: CALCIUM CARBONATE 500 MG CHEWABLE PO PRN (07:29)
[2021-01-18] MEDS: PANTOPRAZOLE 40 MG TABLET PO SCH (07:34)
[2021-01-18 08:16] VITALS: BP 153/78; PULSE 56; RESP 16
[2021-01-18 09:22] LABS: Basophils # (A) 0.07 X 10*3/uL (0.00-0.10); Basophils % (A) 0.6 %; Eosinophils # (A) 0.24 X 10*3/uL (0.04-0.35); Eosinophils % (A) 2.2 %; HCT 36.2 % (37.2-46.3); HGB 12.2 g/dL (12.0-15.0); Lymphocytes # (A) 2.25 X 10*3/uL (0.90-5.00); Lymphocytes % (A) 20.6 %; MCH 31.2 pg (27.0-32.0); MCHC 33.7 g/dL (32.0-37.0); MCV 92.6 fL (80.0-97.0); Mean Platelet Volume 9.1 fL (9.5-12.2); Monocytes % (A) 8.3 %; Neutrophils # (A) 7.39 X 10*3/uL (1.80-7.70); Neutrophils % (A) 67.8 %; Platelet Count 346 X 10*3/uL (140-440); RBC 3.91 X 10*6/uL (4.10-5.20); RDW 13.2 % (11.5-14.5)
[2021-01-18] MEDS: LACTATED RINGERS 1,000 ML IV SCH ×2 (10:04)
--- NOTE | 2021-01-18 10:04 | P.CRDCN ---
History of Present Illness History of present illness: HISTORY OF PRESENTING ILLNESS This is a pleasant 50-year-old female past medical history significant for hypothyroidism, dyslipidemia, hypertension and chronic nicotine dependence. She follows in the office with Dr. Sawyer. We have been asked to see in consultation for chest pain. Center to the hospital yesterday for elective outpatient repair of a torn meniscus. Surgery was uneventful. While in recovery the patient developed a discomfort in the left precordial region desc ribed as a semitruck sitting on her chest. The discomfort was in the left precordial region with no radiation to the arm, back, neck or jaw. It was not associated with shortness of breath, dizziness or any significant palpitations. Initial EKG in recovery revealed SR with heart rate [address] or T-wave abnormalities. She was given sublingual nitroglycerin in the recovery room and her pain did decrease in intensity however did not completely resolve. Shortly thereafter the pain did return and she continues to have discomfort at this time. Her pain is exacerbated by deep inspiration. It is not reproducible on palpation. Repeat EKG this morning revealed SR with non-specific flat Twaves in the precordial leads. She underwent previous cardiac testing in July of this year with Dr. Sawyer. She had a stress echocardiogram 07/02/2020 where she walked for 8 minutes and had no evidence of stress induced ischemia. She also had an echocardiogram that revealed preserved LV systolic function with ejection fraction 55-60% with normal diastolic function, borderline LVH, mild MR and mild TR noted with a mildly elevated RVSP of 35 mmHg. Laboratory data reviewed, CBC unremarkable, sodium 137, potassium 4.4, creatinine 0.66, magnesium 1.9 and cardiac enzymes negative 3. Current daily cardiac medications include lopressor 25 mg daily and atorvastatin 20 mg daily. REVIEW OF SYSTEMS At the time of my exam: CONSTITUTIONAL: Denies fever or chills. CARDIOVASCULAR: Complains of pleuritic chest pain. Denies shortness of breath, orthopnea, PND or palpitations. RESPIRATORY: Denies cough. GASTROINTESTINAL: Denies abdominal pain, diarrhea, constipation, nausea or vomiting. MUSCULOSKELETAL: Denies myalgias. NEUROLOGIC: Denies numbness, tingling, headache or weakness. ENDOCRINE: Denies fatigue, weight change, polydipsia or polyurina. GENITOURINARY: Denies burning, hematuria or urgency with micturation. HEMATOLOGIC: Denies history of anemia or bleeding. PHYSICAL EXAMINATION Blood pressure 153/78 heart rate 56 afebrile and maintaining oxygen saturation on room air. CONSTITUTIONAL: No apparent distress. HEENT: Head is normocephalic. Pupils are equal, round. Sclerae anicteric. Mucous membranes of the mouth are moist. No JVD. No carotid bruit. CHEST EXAMINATION: Lungs are clear to auscultation. No chest wall tenderness is noted on palpation or with deep breathing. HEART EXAMINATION: Regular rate and rhythm. S1, S2 heard. No murmurs, gallops or rub. ABDOMEN: Soft, nontender. EXTREMITIES: 2+ peripheral pulses, no lower extremity edema and no calf tenderness. NEUROLOGIC EXAMINATION: Patient is awake, alert and oriented x3. ASSESSMENT Chest pain, pleuritic s/p right knee arthroscopic surgery Hypertension Dyslipidemia Chronic nicotine dependence PLAN An acute coronary event has been ruled out. Pain is atypical for angina with pleuritic features. Not related to ACS. Check d-dimer and CTA of abnormal. Obtain 2D echocardiogram and doppler study to assess cardiac structure and function. Increase activity as tolerated. If diagnostic testing is normal, she can be discharged home from a cardiac perspective to follow up with Dr. Sawyer. Thank you kindly for this consultation. Nurse Practitioner note has been reviewed, I agree with a documented findings and plan of care. Patient was seen and examined. 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 Arrythmia. Rt knee pain History of Any Multi-Drug Resistant Organisms: None Reported Past Surgical History: Cholecystectomy, Orthopedic Surgery Additional Past Surgical History / Comment(s): Rt knee scope 12/2019, Lt knee scope. Past Anesthesia/Blood Transfusion Reactions: Family History of Problems w/ Anesthesia, Motion Sickness, Postoperative Nausea & Vomiting (PONV) Additional Past Anesthesia/Blood Transfusion Reaction / Comment(s): Mother had PONV Past Psychological History: Anxiety Smoking Status: Current every day smoker Past Alcohol Use History: None Reported Additional Past Alcohol Use History / Comment(s): smoker for 30+ years, 1 ppd, now down to 1/2 ppd Past Drug Use History: None Reported - Past Family History Mother Family Medical History: Cancer Additional Family Medical History / Comment(s): lung cancer 2006 Father Family Medical History: Cancer Additional Family Medical History / Comment(s): skin cancer Medications and Allergies Home Medications Medication Instructions Recorded Confirmed Type Levothyroxine Sodium [Synthroid] 50 mcg PO DAILY 12/30/16 01/17/21 History Pantoprazole Sodium [Protonix] 40 mg PO BID 12/30/16 01/17/21 History Escitalopram [Lexapro] 10 mg PO HS 12/01/19 01/17/21 History Metoprolol Tartrate [Lopressor] 25 mg PO HS 08/29/20 01/17/21 History Zdddcjs-Izsi-Uxjm [id number] 1 tab PO Q4HR PRN 09/23/20 01/17/21 History [Excedrin] Atorvastatin [Lipitor] 20 mg PO HS 01/15/21 01/17/21 History Ibuprofen [Advil] 600 mg PO Q8HR PRN 01/15/21 01/17/21 History HYDROcodone/APAP 5-325MG [[place] 1 tab PO Q6HR PRN #21 tab 01/17/21 Rx 5-325] Allergies Allergy/AdvReac Type Severity Reaction Status Date / Time Iodinated Contrast Media Allergy Anaphylaxis Verified 01/17/21 08:58 [Iodinated Contrast Media - IV Dye] shellfish derived [Shellfish] Allergy Anaphylaxis Verified 01/17/21 08:58 hydrocodone AdvReac Itching Verified 01/17/21 08:58 steroids AdvReac Rapid Uncoded 01/17/21 08:58 Heart Rate Physical Exam Vitals: Vital Signs Temp Pulse Pulse Resp BP BP Pulse Ox 01/18/21 01:54 97.8 F 64 18 116/72 93 L 01/17/21 19:46 97.9 F 51 L 18 134/74 98 01/17/21 15:21 96 01/17/21 15:05 14 98 01/17/21 14:58 97.8 F 51 L 14 130/78 97 01/17/21 14:26 62 16 121/72 97 01/17/21 14:00 51 L 14 01/17/21 13:48 65 16 114/77 94 L 01/17/21 13:25 59 L 16 132/79 97 01/17/21 13:05 62 16 125/80 97 01/17/21 12:53 66 16 133/81 96 01/17/21 12:48 68 16 143/83 95 01/17/21 12:24 74 16 140/92 95 01/17/21 12:08 62 16 165/102 97 01/17/21 11:51 64 16 161/92 92 L 01/17/21 11:30 61 14 139/87 96 01/17/21 11:15 65 16 135/82 99 01/17/21 11:01 96.8 F L 57 L 12 108/67 97 01/17/21 09:04 97.7 F 66 18 170/74 97 Intake and Output 01/17/21 01/18/21 01/18/21 22:59 06:59 14:59 Output Total 1 Balance -1 Output: Urine 1 Other: # Voids 1 Weight 67 kg Results 01/17/21 13:55 01/18/21 05:17 Cardiac Enzymes 01/17/21 01/17/21 01/17/21 Range/Units 13:55 17:30 21:13 Troponin I <0.012 <0.012 <0.012 (0.000-0.034) ng/mL Coagulation 01/17/21 Range/Units 13:55 PT 10.6 (9.0-12.0) sec CBC 01/17/21 Range/Units 13:55 WBC 9.5 (3.8-10.6) k/uL RBC 4.04 (3.80-5.40) m/uL Hgb 12.8 (11.4-16.0) gm/dL Hct 37.5 (34.0-46.0) % Plt Count 326 (150-450) k/uL Comprehensive Metabolic Panel 01/17/21 01/18/21 Range/Units 13:55 05:17 Sodium 137 137 (137-145) mmol/L Potassium 3.7 4.4 (3.5-5.1) mmol/L Chloride 105 104 (98-107) mmol/L Carbon Dioxide 26 30 (22-30) mmol/L BUN 10 9 (7-17) mg/dL Creatinine 0.55 0.66 (0.52-1.04) mg/dL Glucose 108 H 99 (74-99) mg/dL Calcium 8.8 9.0 (8.4-10.2) mg/dL Current Medications Generic Name Dose Route Start Last Admin Trade Name Freq PRN Reason Stop Dose Admin Acetaminophen 650 mg 01/17/21 15:21 01/17/21 17:27 Acetaminophen Tab 325 Mg Tab PO 650 mg Q6HR PRN Administration Mild Pain or Fever > 100.5 Acetaminophen/Aspirin/Caffeine 1 each 01/17/21 15:22 01/18/21 05:49 Pkxsofv-Xqjg-Crmr [id number] 1 Each Tab PO 1 each Q4HR PRN Administration Headache Hydrocodone Bitart/Acetaminophen 1 each 01/17/21 13:34 01/17/21 20:49 Hydrocodone/Apap 5-325mg 1 Each Tab PO 02/16/21 13:35 1 each Q6HR PRN Administration Pain Atorvastatin Calcium 40 mg 01/17/21 21:00 01/17/21 20:43 Atorvastatin 40 Mg Tab PO 40 mg HS RAFFAELE Administration Calcium Carbonate/Glycine 1,000 mg 01/18/21 07:29 Calcium Carbonate 500 Mg Chewable PO QID PRN Heartburn Diphenhydramine HCl 25 mg 01/17/21 21:43 01/17/21 21:49 Diphenhydramine 25 Mg Cap PO 25 mg QID PRN Administration Itching Escitalopram Oxalate 10 mg 01/17/21 21:00 01/17/21 20:43 Escitalopram 10 Mg Tab PO 10 mg HS RAFFAELE Administration Lactated Ringer's 1,000 mls @ 20 mls/hr 01/17/21 06:43 01/17/21 09:19 Lactated Ringers IV 02/16/21 06:44 1,000 mls .Q24H RAFFAELE Administration Lactated Ringer's 1,000 mls @ 20 mls/hr 01/17/21 06:43 01/17/21 15:56 Lactated Ringers IV 02/16/21 06:44 Not Given .Q24H RAFFAELE Levothyroxine Sodium 50 mcg 01/18/21 06:30 01/18/21 05:31 Levothyroxine 50 Mcg Tab PO 50 mcg DAILY@0630 RAFFAELE Administration Metoprolol Tartrate 25 mg 01/17/21 21:00 01/17/21 20:39 Metoprolol Tartrate 25 Mg Tab PO Not Given HS RAFFAELE Naloxone HCl 0.2 mg 01/17/21 15:21 Naloxone 0.4 Mg/Ml 1 Ml Vial IV Q2M PRN Opioid Reversal Nitroglycerin 0.4 mg 01/17/21 15:23 Nitroglycerin Sl Tabs 0.4 Mg Tab SUBLINGUAL Q5M PRN Chest Pain Pantoprazole Sodium 40 mg 01/17/21 17:30 01/18/21 07:34 Pantoprazole 40 Mg Tablet PO 40 mg AC-BID RAFFAELE Administration Intake and Output 01/17/21 01/18/21 01/18/21 22:59 06:59 14:59 Output Total 1 Balance -1 Output: Urine 1 Other: # Voids 1 Weight 67 kg 01/17/21 13:55 01/18/21 05:17
--- NOTE | 2021-01-18 11:36 | ECHOF ---
Referral Reason:cp MEASUREMENTS -------- HEIGHT: 157.5 cm WEIGHT: 66.7 kg BP: RVIDd: 3.3 cm (< 3.3) IVSd: 1.4 cm (0.6 - 1.1) LVIDd: 4.1 cm (3.9 - 5.3) LVPWd: 1.3 cm (0.6 - 1.1) IVSs: 2.0 cm LVIDs: 2.3 cm LVPWs: 1.7 cm LAESV Index (A-L): 19.37 ml/m Ao Diam: 3.0 cm (2.0 - 3.7) AV Cusp: 2.0 cm (1.5 - 2.6) LA Diam: 3.4 cm (2.7 - 3.8) MV EXCURSION: 15.618 mm (> 18.000) MV EF SLOPE: 73 mm/s (70 - 150) EPSS: 0.3 cm MV E Leon: 1.08 m/s MV DecT: 175 ms MV A Leon: 0.64 m/s MV E/A Ratio: 1.69 RAP: 5.00 mmHg RVSP: 32.43 mmHg FINDINGS -------- Sinus rhythm. This was a technically adequate study. The left ventricular size is normal. There is moderate concentric left ventricular hypertrophy. O verall left ventricular systolic function is normal with, an EF between 55 - 60 %. The diastolic fi lling pattern is normal for the age of the patient 14.19. The right ventricle is mildly enlarged. Normal LA size by volume 22+/-6 ml/m2. The right atrium is mildly enlarged. Interatrial and interventricular septum intact. The aortic valve is trileaflet and appears structurally normal. There is no evidence of aortic regu rgitation. There is no evidence of aortic stenosis. No mitral regurgitation. Mild tricuspid regurgitation present. There is borderline pulmonary hypertension. The right ventr icular systolic pressure, as measured by Doppler, is 32.43mmHg. There is no pulmonic regurgitation present. The aortic root size is normal. The inferior vena cava is mildly dilated. There is no pericardial effusion. CONCLUSIONS -------- 1. The left ventricular size is normal. 2. There is moderate concentric left ventricular hypertrophy. 3. Overall left ventricular systolic function is normal with, an EF between 55 - 60 %. 4. The right ventricle is mildly enlarged. 5. The right atrium is mildly enlarged. 6. Mild tricuspid regurgitation present. 7. There is borderline pulmonary hypertension. 8. The right ventricular systolic pressure, as measured by Doppler, is 32.43mmHg. 9. The inferior vena cava is mildly dilated. HAND FINISHER: Marialuisa Hopkins RDCS
[2021-01-18 12:08] LABS: T4, Free (Free Thyroxine) 1.47 ng/dL (0.78-2.19)
--- NOTE | 2021-01-18 14:14 | P.DS ---
Providers Date of admission: 01/17/2021 Expected date of discharge: 01/18/21 Attending physician: Mt Jordan MD Consults: 01/17/21 13:12 Consult Physician Stat Consulting Provider: Tay Tanner Consult Reason/Comments: CHEST PAIN RELIEVED BY NITRO Do you want consulting provider notified?: Yes Primary care physician: Sona Sommer MD Hospital Course: Atypical chest pain -Admitted to observation, telemetry. Trops were negative, EKG non-ischemic, in NSR. Tele with no events, at times sinus victor hugo. Cardiology evaluated and cleared patient. Pt will go home with PCP and cardiology f/u as needed. Hypertension Hyperlipidemia Hypothyroidism GERD Osteoarthritis -Home medications reviewed and reconciled, no changes on discharge. Assessment: Gen: awake, alert HEENT: normocephalic, atraumatic, good hearing acuity, moist mucous membranes Resp: good air exchange, breathing comfortably with no accessory muscle use CVS: good distal perfusion x 4, GI: soft, NTTP, ND : no SPT, no CVAT, franks catheter not present MSK: no pitting edema, no clubbing Neuro: non-focal, moving all extremities Psych: cooperative, euthymic mood Patient Condition at Discharge: Good Plan - Discharge Summary Discharge Rx Participant: No New Discharge Prescriptions: New HYDROcodone/APAP 5-325MG [[place] 5-325] 1 tab PO Q6HR PRN #21 tab PRN Reason: Pain Continue Pantoprazole Sodium [Protonix] 40 mg PO BID Levothyroxine Sodium [Synthroid] 50 mcg PO DAILY Escitalopram [Lexapro] 10 mg PO HS Metoprolol Tartrate [Lopressor] 25 mg PO HS Nagldng-Rqaq-Izjh [id number] [Excedrin] 1 tab PO Q4HR PRN PRN Reason: Headache Atorvastatin [Lipitor] 20 mg PO HS Ibuprofen [Advil] 600 mg PO Q8HR PRN PRN Reason: Pain Discharge Medication List Levothyroxine Sodium [Synthroid] 50 mcg PO DAILY 12/30/16 [History] Pantoprazole Sodium [Protonix] 40 mg PO BID 12/30/16 [History] Escitalopram [Lexapro] 10 mg PO HS 12/01/19 [History] Metoprolol Tartrate [Lopressor] 25 mg PO HS 08/29/20 [History] Zimnwyn-Ybvy-Lzyd [id number] [Excedrin] 1 tab PO Q4HR PRN 09/23/20 [History] Atorvastatin [Lipitor] 20 mg PO HS 01/15/21 [History] Ibuprofen [Advil] 600 mg PO Q8HR PRN 01/15/21 [History] HYDROcodone/APAP 5-325MG [[place] 5-325] 1 tab PO Q6HR PRN #21 tab 01/17/21 [Rx] Follow up Appointment(s)/Referral(s): Ismael Leon PAC [PHYSICIAN FINISHED CLOTH CHECKER] - 02/01/21 9:20 am Patient Instructions/Handouts: *[facility] - (Adv Ortho) Arthroscopic Knee Post-Op Instructions, *[facility] - (Anesthesia) Discharge Instructions Outpatient Surgery, *[facility] - Scopalamine Patch Instructions Discharge Disposition: HOME SELF-CARE
== END 2021-01-18 12:46 | disposition home or self-care (01) ==
LOC: OR 08:45 → 6NMEDSUR 13:46 → OR 01-18 12:46
PROVIDERS: ATTEND Internal Medicine
DX: S83.281A Other tear of lateral meniscus, current injury, right knee, initial encounter (principal); M94.261 Chondromalacia, right knee; I10 Essential (primary) hypertension; E78.5 Hyperlipidemia, unspecified; F17.210 Nicotine dependence, cigarettes, uncomplicated; E03.9 Hypothyroidism, unspecified; F41.9 Anxiety disorder, unspecified; I51.7 Cardiomegaly; I27.20 Pulmonary hypertension, unspecified; K21.9 Gastro-esophageal reflux disease without esophagitis; M19.90 Unspecified osteoarthritis, unspecified site; M32.9 Systemic lupus erythematosus, unspecified; Z79.1 Long term (current) use of non-steroidal anti-inflammatories (NSAID); Z79.82 Long term (current) use of aspirin; Z80.1 Family history of malignant neoplasm of trachea, bronchus and lung; Z88.5 Allergy status to narcotic agent; Z90.49 Acquired absence of other specified parts of digestive tract
CPT/HCPCS: 29881; 93306; 93005; 85379; 84439; 80048 ×2; 84443; 83735 ×2; 84484; 85025 ×2; 85610; J2250; J1200; J0690; J2405; J2001; J3010; J1885; J2704; J1170

== ENCOUNTER → 2021-03-04 | Outpatient (CLI) | payer OTHER ==
--- NOTE | 2021-03-04 21:52 | MR ---
EXAMINATION TYPE: MR brain wo/w con DATE OF EXAM: 03/04/2021 COMPARISON: MRI brain June 27, 2020 and August 30, 2020 HISTORY: Pineal gland cyst TECHNIQUE: Multiplanar, multisequence images of the brain and brainstem is performed without and with IV contras t, utilizing 6ml mL intravenous Gadavist . FINDINGS: Diffusion weighted images demonstrate no evidence of a recent infarct or other diffusion ab normality. The ventricular system and cisternal spaces remains normal in size and appearance. The br ain volume is age appropriate. Few small scattered foci of T2 hyperintensity throughout the white mat ter bilaterally is redemonstrated. Approximately 5 small scattered lesions again seen. Midline structures demonstrate normal morphology. Stable 8 mm pineal gland cyst axial image 15 The c raniocervical junction appears within normal limits. Post contrast images demonstrate no abnormal en hancement. The dural venous sinuses appear patent. The visualized sinuses are clear and the globes ar e intact. IMPRESSION: Mild to minimal nonspecific white matter changes redemonstrated. Stable 8 mm incidental p ineal gland thin-walled cyst. No significant change from recent prior studies.
== END | disposition home or self-care (01) ==
LOC: RADMRIMAIN 20:49
PROVIDERS: ATTEND Neurological Surgery
DX: E34.8 Other specified endocrine disorders (principal)
CPT/HCPCS: 70553; A9585

== ENCOUNTER → 2021-07-17 | Outpatient (CLI) | payer OTHER ==
--- NOTE | 2021-07-17 12:41 | CT ---
EXAMINATION TYPE: CT abdomen pelvis wo con DATE OF EXAM: 07/17/2021 COMPARISON: HISTORY: Rt flank pain CT DLP: 653 mGycm Automated exposure control for dose reduction was used. TECHNIQUE: Helical acquisition of images was performed from the lung bases through the pelvis. FINDINGS: LUNG BASES: No significant abnormality is appreciated. LIVER/GB: Postcholecystectomy. PANCREAS: No significant abnormality is seen. SPLEEN: No significant abnormality is seen. ADRENALS: left adrenal gland thickening. KIDNEYS: Right Kidney:. There are two 3 mm calculi within the right kidney but no hydronephrosis. Left Kidney: There is a punctate 1 to 2 mm left renal calculus but no hydronephrosis. ADENOPATHY: None visualized. OSSEOUS STRUCTURES: Hypertrophic and degenerative changes spine with facet arthropathy lower lumbar region grade 1 anterolisthesis L4 on L5.. BOWEL: Wall thickening in the right colon may be related to incomplete distention. Changes of divert iculosis. Surgical clip adjacent to the right colon. OTHER: Uterine calcifications suggestive fibroid. IMPRESSION: 1. Nonobstructing bilateral ureteral calculi greater on the right. 2. Wall thickening of the right colon most likely related to incomplete distention rather than coliti s or mucosal lesion. Correlate with direct visualization as clinically warranted. 3. Uterine calcifications could be associated with uterine fibroid. 4. Nonspecific thickening of the left adrenal gland in the basis of adenoma or adrenal hyperplasia.
== END | disposition home or self-care (01) ==
LOC: RADCTMAIN 12:01
PROVIDERS: ATTEND Family Medicine
DX: N20.1 Calculus of ureter (principal); K63.89 Other specified diseases of intestine; E27.8 Other specified disorders of adrenal gland; N85.8 Other specified noninflammatory disorders of uterus
CPT/HCPCS: 74176

== ENCOUNTER → 2021-08-02 | Outpatient (CLI) | payer OTHER ==
[2021-08-02 16:26] LABS: African American GFR (CKD) 99.6 (60.0-200.0); Albumin 4.3 g/dL (3.8-4.9); Albumin/Globulin Ratio 1.87 (1.60-3.17); BUN/Creat Ratio 18.38 Ratio (12.00-20.00); Blood Urea Nitrogen 14.7 mg/dL (9.0-27.0); Calcium 10.1 mg/dL (8.7-10.3); Globulin 2.3 g/dL (1.6-3.3); Potassium 4.8 mmol/L (3.5-5.5); Total Bilirubin 0.5 mg/dL (0.30-1.20); Total Protein 6.6 g/dL (6.2-8.2)
[2021-08-02 23:33] LABS: DHEA Sulfate 77.1 ug/dL (26.0-430.0)
[2021-08-03 10:47] LABS: ACTH 25.5 pg/mL (0.00-45.99)
== END | disposition home or self-care (01) ==
LOC: LABWHC1 09:17
PROVIDERS: ATTEND Family Medicine
DX: E27.8 Other specified disorders of adrenal gland (principal)
CPT/HCPCS: 36415; 80053; 82024; 82088; 82533; 82627; 83498; 83835; 84244

== ENCOUNTER → 2021-10-04 | Outpatient (CLI) | payer OTHER ==
--- NOTE | 2021-10-05 04:20 | MR ---
EXAMINATION TYPE: MR brain wo/w con DATE OF EXAM: 10/04/2021 COMPARISON: 03/04/2021 HISTORY: Follow-up pineal cyst. CONTRAST: Standard multiplanar, multisequence MRI departmental protocol images were obtained without contrast a nd with 7 mL intravenous Gadavist gadolinium contrast. Ventricles have normal size. There is no mass effect or midline shift. No sign of intracranial hemorr asher. Corpus callosum appears normal. Brainstem is intact. No evidence of cerebral edema. Diffusion i mages show no sign of an acute infarct. Sella turcica appears normal. No evidence of orbital mass. The brainstem is intact. There are a few s cattered small white matter high signal foci on the T2 and FLAIR images in the right posterior tempor al lobe measuring up to 3 mm. This could be some minimal microvascular ischemia. IMPRESSION: Minimal microvascular ischemia right posterior temporal lobe which appear new compared to old exam. N o evidence of a pineal cyst.
== END | disposition home or self-care (01) ==
LOC: RADMRIMAIN 20:50
PROVIDERS: ATTEND Psychiatry & Neurology Neurology
DX: I67.82 Cerebral ischemia (principal)
CPT/HCPCS: 70553; A9585

== ENCOUNTER 2021-10-28 23:58 | Observation (INO) | payer OTHER ==
[2021-10-29] MEDS ORDERED: SODIUM CHLORIDE 0.9% 1,000 ML IV STA (02:42)
--- NOTE | 2021-10-29 02:43 | ED ---
Weakness HPI - General Chief complaint: Chest Pain Stated complaint: irregular heartbeat, dizzy Time Seen by Provider: 10/29/21 02:41 Source: patient Mode of arrival: ambulatory Limitations: no limitations - Related Data Home Medications Medication Instructions Recorded Confirmed Levothyroxine Sodium [Synthroid] 50 mcg PO DAILY 12/30/16 01/17/21 Pantoprazole Sodium [Protonix] 40 mg PO BID 12/30/16 01/17/21 Escitalopram [Lexapro] 10 mg PO HS 12/01/19 01/17/21 Metoprolol Tartrate [Lopressor] 25 mg PO HS 08/29/20 01/17/21 Blfnagz-Uyct-Xtyz [id number] 1 tab PO Q4HR PRN 09/23/20 01/17/21 [Excedrin] Atorvastatin [Lipitor] 20 mg PO HS 01/15/21 01/17/21 Ibuprofen [Advil] 600 mg PO Q8HR PRN 01/15/21 01/17/21 Previous Rx's Medication Instructions Recorded HYDROcodone/APAP 5-325MG [[place] 1 tab PO Q6HR PRN #21 tab 01/17/21 5-325] Allergies Allergy/AdvReac Type Severity Reaction Status Date / Time Iodinated Contrast Media Allergy Anaphylaxis Verified 10/29/21 00:03 [Iodinated Contrast Media - IV Dye] shellfish derived [Shellfish] Allergy Anaphylaxis Verified 10/29/21 00:03 hydrocodone AdvReac Itching Verified 10/29/21 00:03 steroids AdvReac Rapid Uncoded 10/29/21 00:03 Heart Rate Review of Systems ROS Statement: Those systems with pertinent positive or pertinent negative responses have been documented in the HPI. ROS Other: All systems not noted in ROS Statement are negative. 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 Arrythmia. Rt knee pain History of Any Multi-Drug Resistant Organisms: None Reported Past Surgical History: Cholecystectomy, Orthopedic Surgery Additional Past Surgical History / Comment(s): Rt knee scope 12/2019, Lt knee scope. Past Anesthesia/Blood Transfusion Reactions: Family History of Problems w/ Anesthesia, Motion Sickness, Postoperative Nausea & Vomiting (PONV) Additional Past Anesthesia/Blood Transfusion Reaction / Comment(s): Mother had PONV Past Psychological History: Anxiety Smoking Status: Current every day smoker Past Alcohol Use History: None Reported Past Drug Use History: None Reported - Past Family History Mother Family Medical History: Cancer Additional Family Medical History / Comment(s): lung cancer 2006 Father Family Medical History: Cancer Additional Family Medical History / Comment(s): skin cancer General Exam Limitations: no limitations Course Vital Signs 10/29/21 10/29/21 00:01 03:25 Temperature 97.6 F Pulse Rate 74 56 L Respiratory 18 18 Rate Blood Pressure 165/89 174/96 O2 Sat by Pulse 100 99 Oximetry EKG Findings - EKG Comments: EKG Findings:: EKG shows sinus rhythm 61 IN 156 qrs 100 QTc 403 Medical Decision Making - Lab Data Result diagrams: 10/29/21 04:00 10/29/21 04:00 Lab Results 10/29/21 10/29/21 10/29/21 Range/Units 04:00 04:00 04:00 WBC 9.8 (3.8-10.6) k/uL RBC 4.33 (3.80-5.40) m/uL Hgb 13.5 (11.4-16.0) gm/dL Hct 40.4 (34.0-46.0) % MCV 93.3 (80.0-100.0) fL MCH 31.1 (25.0-35.0) pg MCHC 33.4 (31.0-37.0) g/dL RDW 12.7 (11.5-15.5) % Plt Count 381 (150-450) k/uL MPV 6.6 Neutrophils % 54 % Lymphocytes % 29 % Monocytes % 8 % Eosinophils % 4 % Basophils % 2 % Neutrophils # 5.3 (1.3-7.7) k/uL Lymphocytes # 2.9 (1.0-4.8) k/uL Monocytes # 0.8 (0-1.0) k/uL Eosinophils # 0.4 (0-0.7) k/uL Basophils # 0.2 (0-0.2) k/uL Sodium 138 (137-145) mmol/L Potassium 3.8 (3.5-5.1) mmol/L Chloride 105 (98-107) mmol/L Carbon Dioxide 28 (22-30) mmol/L Anion Gap 5 mmol/L BUN 14 (7-17) mg/dL Creatinine 0.73 (0.52-1.04) mg/dL Est GFR (CKD-EPI)AfAm >90 (>60 ml/min/1.73 sqM) Est GFR (CKD-EPI)NonAf >90 (>60 ml/min/1.73 sqM) Glucose 93 (74-99) mg/dL Calcium 9.0 (8.4-10.2) mg/dL Phosphorus 3.8 (2.5-4.5) mg/dL Magnesium 2.1 (1.6-2.3) mg/dL Total Bilirubin 0.6 (0.2-1.3) mg/dL AST 21 (14-36) U/L ALT 14 (4-34) U/L Alkaline Phosphatase 93 (38-126) U/L Troponin I <0.012 (0.000-0.034) ng/mL NT-Pro-B Natriuret Pep pg/mL Total Protein 6.6 (6.3-8.2) g/dL Albumin 4.1 (3.5-5.0) g/dL TSH <0.015 L (0.465-4.680) mIU/L 10/29/21 Range/Units 04:00 WBC (3.8-10.6) k/uL RBC (3.80-5.40) m/uL Hgb (11.4-16.0) gm/dL Hct (34.0-46.0) % MCV (80.0-100.0) fL MCH (25.0-35.0) pg MCHC (31.0-37.0) g/dL RDW (11.5-15.5) % Plt Count (150-450) k/uL MPV Neutrophils % % Lymphocytes % % Monocytes % % Eosinophils % % Basophils % % Neutrophils # (1.3-7.7) k/uL Lymphocytes # (1.0-4.8) k/uL Monocytes # (0-1.0) k/uL Eosinophils # (0-0.7) k/uL Basophils # (0-0.2) k/uL Sodium (137-145) mmol/L Potassium (3.5-5.1) mmol/L Chloride (98-107) mmol/L Carbon Dioxide (22-30) mmol/L Anion Gap mmol/L BUN (7-17) mg/dL Creatinine (0.52-1.04) mg/dL Est GFR (CKD-EPI)AfAm (>60 ml/min/1.73 sqM) Est GFR (CKD-EPI)NonAf (>60 ml/min/1.73 sqM) Glucose (74-99) mg/dL Calcium (8.4-10.2) mg/dL Phosphorus (2.5-4.5) mg/dL Magnesium (1.6-2.3) mg/dL Total Bilirubin (0.2-1.3) mg/dL AST (14-36) U/L ALT (4-34) U/L Alkaline Phosphatase (38-126) U/L Troponin I (0.000-0.034) ng/mL NT-Pro-B Natriuret Pep 55 pg/mL Total Protein (6.3-8.2) g/dL Albumin (3.5-5.0) g/dL TSH (0.465-4.680) mIU/L Disposition Clinical Impression: Dizziness, Chest pain, Chest discomfort Disposition: ADMITTED IP TO THIS HOSP Condition: Fair Instructions (If sedation given, give patient instructions): Chest Pain (ED) Is patient prescribed a controlled substance at d/c from ED?: No Referrals: Sona Sommer MD [Primary Care Provider] - 1-2 days
[2021-10-29] MEDS ORDERED: ONDANSETRON 4 MG/2 ML VIAL IVP STA (03:23)
[2021-10-29] MEDS ORDERED: diphenhydrAMINE 50 MG/ML 1 ML VIAL IVP STA (03:23)
[2021-10-29] MEDS ORDERED: KETOROLAC 15 MG/ML 1 ML VIAL IVP STA (03:23)
[2021-10-29 04:20] LABS: Basophils # (A) 0.2 k/uL (0-0.2); Basophils % (A) 2 %; Eosinophils # (A) 0.4 k/uL (0-0.7); Eosinophils % (A) 4 %; HCT 40.4 % (34.0-46.0); HGB 13.5 gm/dL (11.4-16.0); Lymphocytes # (A) 2.9 k/uL (1.0-4.8); Lymphocytes % (A) 29 %; MCH 31.1 pg (25.0-35.0); MCHC 33.4 g/dL (31.0-37.0); MCV 93.3 fL (80.0-100.0); Mean Platelet Volume 6.6; Monocytes # (A) 0.8 k/uL (0-1.0); Monocytes % (A) 8 %; Neutrophils # (A) 5.3 k/uL (1.3-7.7); Neutrophils % (A) 54 %; Platelet Count 381 k/uL (150-450); RBC 4.33 m/uL (3.80-5.40); RDW 12.7 % (11.5-15.5); WBC 9.8 k/uL (3.8-10.6)
[2021-10-29 04:55] LABS: ALT 14 U/L (4-34); AST 21 U/L (14-36); African American GFR (CKD) >90 (>60 ml/min/1.73 sqM); Albumin 4.1 g/dL (3.5-5.0); Alkaline Phosphatase 93 U/L (38-126); Anion Gap 5 mmol/L; Blood Urea Nitrogen 14 mg/dL (7-17); Carbon Dioxide 28 mmol/L (22-30); Chloride 105 mmol/L (98-107); Glucose 93 mg/dL (74-99); Magnesium 2.1 mg/dL (1.6-2.3); Non-African American GFR(CKD) >90 (>60 ml/min/1.73 sqM); Phosphorus 3.8 mg/dL (2.5-4.5); Potassium 3.8 mmol/L (3.5-5.1); Sodium 138 mmol/L (137-145); Total Bilirubin 0.6 mg/dL (0.2-1.3); Total Protein 6.6 g/dL (6.3-8.2)
[2021-10-29] MEDS ORDERED: NALOXONE 0.4 MG/ML 1 ML VIAL IV PRN (05:43)
[2021-10-29] MEDS ORDERED: HYDROmorphone 2 MG TAB PO STA (05:43)
[2021-10-29] MEDS ORDERED: MORPHINE SULFATE 4 MG/ML SYRINGE IV PRN (05:43)
[2021-10-29] MEDS ORDERED: ONDANSETRON 4 MG/2 ML VIAL IVP PRN (05:43)
[2021-10-29] MEDS ORDERED: LORazepam 0.5 MG TAB PO PRN (05:43)
[2021-10-29] MEDS ORDERED: KETOROLAC 15 MG/ML 1 ML VIAL IVP PRN (06:46)
[2021-10-29] MEDS: SODIUM CHLORIDE 0.9% 1,000 ML IV SCH ×2 (07:47→07:48)
[2021-10-29] MEDS ORDERED: ONDANSETRON ODT 8 MG TAB.RAPDIS PO PRN (08:05)
[2021-10-29] MEDS ORDERED: ASPIRIN-ACET-CAFF 250-250-65MG 1 EACH TAB PO PRN (08:05)
[2021-10-29] MEDS ORDERED: ESCITALOPRAM PO SCH (09:00)
[2021-10-29] MEDS ORDERED: METOPROLOL TARTRATE 25 MG TAB PO SCH (09:00)
[2021-10-29] MEDS ORDERED: PANTOPRAZOLE 40 MG TABLET PO SCH (09:00)
[2021-10-29 09:40] LABS: T4, Free (Free Thyroxine) 1.87 ng/dL (0.78-2.19)
--- NOTE | 2021-10-29 09:41 | P.HPIM ---
History of Present Illness H&P Date: 10/29/21 Chief Complaint: Chest pain Chief complaint: Chest pain History of present illness: 50-year-old female with past medical history significant for hypertension, bilateral vestibular hypofunction and hypothyroidism patient presents to the emergency room with a chief complaint of a skipped beat with left-sided chest pain radiated to the left armpit and back. The patient is currently pain is a pressure-like pain 7-8 out of 10 not associated with shortness of breath. Pain was relieved by Toradol in the emergency room. Patient had similar presentation a year ago with negative stress test. Patient stated that the patient was associated with nausea and she vomited twice. She denied any resistant nausea or vomiting. Patient denies any fever or chills patient was complaining of headache all day yesterday. She denies any symptoms of 19 infection. No recent travel sick contacts. Review of systems: All 14 review of systems evaluated and all negative except for above. Physical examination: General: non toxic, no distress, appears at stated age Derm: warm, dry Head: atraumatic, normocephalic, symmetric Eyes: EOMI, no lid lag, anicteric sclera Mouth: no lip lesion, mucus membranes moist Cardiovascular: S1S2 reg, no murmur, positive posterior tibial pulse bilateral, Lungs: CTA bilateral, no rhonchi, no rales , no accessory muscle use Abdominal: soft, nontender to palpation, no guarding, no appreciable organ omegaly Ext: no gross muscle atrophy, no edema, no contractures Neuro: CN II-XI grossly intact, no focal neuro deficits Psych: Alert, oriented, appropriate affect Assessment and plan: #Left-sided Chest pain -Pain was reproducible by palpation -Was relieved by Toradol -Negative troponin -EKG shows normal sinus rhythm with nonspecific ST-T wave changes -Cardiology consulted -Check d-dimer #Hypothyroidism -Low TSH -Repeat TSH and free T4 -Hold levothyroxine #Bilateral vestibular hypofunction #Hypertension -Controlled resume metoprolol 25 mg daily #Dyslipidemia -Resume statins #Depression -Resume Lexapro #GERD -Resume proton pump inhibitor #DVT prophylaxis -Lovenox Past Medical History Past Medical History: GERD/Reflux, Hyperlipidemia, Hypertension, Musculoskeletal Disorder, Thyroid Disorder Additional Past Medical History / Comment(s): Lupus; 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 Arrythmia. Rt knee pain History of Any Multi-Drug Resistant Organisms: None Reported Past Surgical History: Cholecystectomy, Orthopedic Surgery Additional Past Surgical History / Comment(s): Rt knee scope 12/2019, Lt knee scope. Past Anesthesia/Blood Transfusion Reactions: Family History of Problems w/ Anesthesia, Motion Sickness, Postoperative Nausea & Vomiting (PONV) Additional Past Anesthesia/Blood Transfusion Reaction / Comment(s): Mother had PONV Past Psychological History: Anxiety Smoking Status: Current every day smoker Past Alcohol Use History: None Reported Past Drug Use History: None Reported - Past Family History Mother Family Medical History: Cancer Additional Family Medical History / Comment(s): lung cancer 2006 Father Family Medical History: Cancer Additional Family Medical History / Comment(s): skin cancer Medications and Allergies Home Medications Medication Instructions Recorded Confirmed Type Levothyroxine Sodium [Synthroid] 50 mcg PO DAILY 12/30/16 10/29/21 History Pantoprazole Sodium [Protonix] 40 mg PO BID 12/30/16 10/29/21 History Metoprolol Tartrate [Lopressor] 25 mg PO DAILY 08/29/20 10/29/21 History Wobxawn-Jlip-Ferl [id number] 2 tab PO Q4HR PRN 09/23/20 10/29/21 History [Excedrin] Atorvastatin [Lipitor] 20 mg PO HS 01/15/21 10/29/21 History Lexapro Unknown Dose 1 tab PO DAILY 10/29/21 10/29/21 History Ondansetron Odt [Zofran Odt] 8 mg PO Q12H PRN 10/29/21 10/29/21 History Allergies Allergy/AdvReac Type Severity Reaction Status Date / Time Iodinated Contrast Media Allergy Anaphylaxis Verified 10/29/21 07:16 [Iodinated Contrast Media - IV Dye] shellfish derived [Shellfish] Allergy Anaphylaxis Verified 10/29/21 07:16 hydrocodone AdvReac Itching Verified 10/29/21 07:16 steroids AdvReac Rapid Uncoded 10/29/21 00:03 Heart Rate Physical Exam Vitals: Vital Signs Temp Pulse Resp BP Pulse Ox 10/29/21 06:35 98.2 F 88 18 148/80 100 10/29/21 03:25 56 L 18 174/96 99 10/29/21 00:01 97.6 F 74 18 165/89 100 Intake and Output 06/27/22 06/28/22 06/28/22 22:59 06:59 14:59 Other: Weight 65.771 kg Results CBC & Chem 7: 10/29/21 04:00 10/29/21 04:00 Labs: Abnormal Lab Results - Last 24 Hours (Table) 10/29/21 Range/Units 04:00 TSH <0.015 L (0.465-4.680) mIU/L
--- NOTE | 2021-10-29 10:40 | P.CRDCN ---
History of Present Illness History of present illness: HISTORY OF PRESENT ILLNESS: This is a 50-year-old female with a past medical history significant for hypertension, hyperlipidemia, and nicotine dependence. Patient follows in the office with Dr. Sawyer. We have been asked to see the patient in consultation for chest pain. Patient examined at the bedside. Patient states she woke up yesterday morning with a headache and noticed that her blood pressure was running higher than usual in the 150s. She states that she spent most of the day in bed. Around 11:00 last night she began to have chest pain. She states the pain was on the low left side of her chest and wrapped around to her back and between her shoulder blades. She reports nausea but no vomiting at home. She does report having dry heaves when she came to the hospital. She denied any shortness of breath. She states the pain lasted for approximately 3-4 hours. She states yesterday the pain was worse with deep inspiration and chest wall palpation. She denies any chest pain or pressure at the time of my examination. The patient reports a significant family history of coronary artery disease and states her dad had a heart attack at age 30 and her mom had a heart attack in her 50s. * EKG reveals sinus mechanism with no signs of acute ischemia * Laboratory data: WBC 9.8. Hemoglobin 13.5. Platelet count 381. Sodium 138. Potassium 3.8. BUN 14. Creatinine 0.73. Magnesium 2.1. Troponin negative 3. * Current home cardiac medications include Lipitor 20 mg at night and metoprolol tartrate 25 mg daily * Most recent echocardiogram obtained in January 2021 revealed ejection fraction 55-60%, mild TR, and borderline pulmonary hypertension * Patient underwent Mayur stress test in July 2020 which was negative for ischemia * Cardiac catheterization history: Patient denies REVIEW OF SYSTEMS: At the time of my exam: CONSTITUTIONAL: Denies fever or chills. HEENT: Denies blurred vision, vision changes, or eye pain. Denies hemoptysis CARDIOVASCULAR: Denies chest pain. Denies orthopnea. Denies PND. Denies palpitations RESPIRATORY: Denies shortness of breath. GASTROINTESTINAL: Denies abdominal pain. Denies nausea or vomiting. HEMATOLOGIC: Denies bleeding disorders. GENITOURINARY: Denies any blood in urine. SKIN: Denies pruitis. Denies rash. PHYSICAL EXAM: VITAL SIGNS: Reviewed. GENERAL: Well-developed in no acute distress. HEENT: Head is normocephalic. Pupils are equal, round. Sclerae anicteric. Mucous membranes of the mouth are moist. Neck supple. No JVD or thyromegaly LUNGS: Respirations even and unlabored. Lungs essentially clear to auscultation bilaterally. HEART: Regular rate and rhythm. S1 and S2 heard. ABDOMEN: Soft. Nondistended. Nontender. EXTREMITIES: Normal range of motion. No clubbing or cyanosis. Peripheral pulses intact. No lower extremity edema NEUROLOGIC: Awake and alert. Oriented x 3. ASSESSMENT: Chest pain, with typical and atypical features, troponin negative 3 Hypertension Hyperlipidemia Nicotine dependence Family history of premature coronary artery disease PLAN: An acute coronary event has been ruled out Resume home cardiac medications Obtain 2-D echo to assess cardiac structure and function Patient to undergo stress echo today to assess for reversible ischemia Further recommendations pending patient's course Nurse practitioner note has been reviewed by physician. Signing provider agrees with the documented findings, assessment, and plan of care. 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 Arrythmia. Rt knee pain History of Any Multi-Drug Resistant Organisms: None Reported Past Surgical History: Cholecystectomy, Orthopedic Surgery Additional Past Surgical History / Comment(s): Rt knee scope 12/2019, Lt knee s cope. Past Anesthesia/Blood Transfusion Reactions: Family History of Problems w/ Anesthesia, Motion Sickness, Postoperative Nausea & Vomiting (PONV) Additional Past Anesthesia/Blood Transfusion Reaction / Comment(s): Mother had PONV Past Psychological History: Anxiety Smoking Status: Current every day smoker Past Alcohol Use History: None Reported Past Drug Use History: None Reported - Past Family History Mother Family Medical History: Cancer Additional Family Medical History / Comment(s): lung cancer 2006 Father Family Medical History: Cancer Additional Family Medical History / Comment(s): skin cancer Medications and Allergies Home Medications Medication Instructions Recorded Confirmed Type Levothyroxine Sodium [Synthroid] 50 mcg PO DAILY 12/30/16 10/29/21 History Pantoprazole Sodium [Protonix] 40 mg PO BID 12/30/16 10/29/21 History Metoprolol Tartrate [Lopressor] 25 mg PO DAILY 08/29/20 10/29/21 History [id number]-Tchd-Mtqm [id number] 2 tab PO Q4HR PRN 09/23/20 10/29/21 History [Excedrin] Atorvastatin [Lipitor] 20 mg PO HS 01/15/21 10/29/21 History Escitalopram [Lexapro] 10 mg PO DAILY 10/29/21 10/29/21 History Ondansetron Odt [Zofran Odt] 8 mg PO Q12H PRN 10/29/21 10/29/21 History Allergies Allergy/AdvReac Type Severity Reaction Status Date / Time Iodinated Contrast Media Allergy Anaphylaxis Verified 10/29/21 07:16 [Iodinated Contrast Media - IV Dye] shellfish derived [Shellfish] Allergy Anaphylaxis Verified 10/29/21 07:16 hydrocodone AdvReac Itching Verified 10/29/21 07:16 steroids AdvReac Rapid Uncoded 10/29/21 00:03 Heart Rate Physical Exam Vitals: Vital Signs Temp Pulse Resp BP Pulse Ox 10/29/21 06:35 98.2 F 88 18 148/80 100 10/29/21 03:25 56 L 18 174/96 99 10/29/21 00:01 97.6 F 74 18 165/89 100 Intake and Output 10/28/21 10/29/21 10/29/21 22:59 06:59 14:59 Other: Weight 65.771 kg Results 10/29/21 04:00 10/29/21 04:00 Cardiac Enzymes 10/29/21 10/29/21 10/29/21 Range/Units 04:00 04:00 06:20 AST 21 (14-36) U/L Troponin I <0.012 <0.012 (0.000-0.034) ng/mL CBC 10/29/21 Range/Units 04:00 WBC 9.8 (3.8-10.6) k/uL RBC 4.33 (3.80-5.40) m/uL Hgb 13.5 (11.4-16.0) gm/dL Hct 40.4 (34.0-46.0) % Plt Count 381 (150-450) k/uL Comprehensive Metabolic Panel 10/29/21 Range/Units 04:00 Sodium 138 (137-145) mmol/L Potassium 3.8 (3.5-5.1) mmol/L Chloride 105 (98-107) mmol/L Carbon Dioxide 28 (22-30) mmol/L BUN 14 (7-17) mg/dL Creatinine 0.73 (0.52-1.04) mg/dL Glucose 93 (74-99) mg/dL Calcium 9.0 (8.4-10.2) mg/dL AST 21 (14-36) U/L ALT 14 (4-34) U/L Alkaline Phosphatase 93 (38-126) U/L Total Protein 6.6 (6.3-8.2) g/dL Albumin 4.1 (3.5-5.0) g/dL Current Medications Generic Name Dose Route Start Last Admin Trade Name Freq PRN Reason Stop Dose Admin Acetaminophen/Aspirin/Caffeine 2 each 10/29/21 08:05 [id number]-Ptia-Riag [phone] 1 Each Tab PO Q4HR PRN Headache Atorvastatin Calcium 20 mg 10/29/21 21:00 Atorvastatin 20 Mg Tab PO HS RAFFAELE Sodium Chloride 1,000 mls @ 20 mls/hr 10/29/21 05:45 10/29/21 07:48 Saline 0.9% IV 20 mls/hr .Q24H RAFFAELE Administration Ketorolac Tromethamine 15 mg 10/29/21 06:46 10/29/21 06:53 Ketorolac 15 Mg/Ml 1 Ml Vial IVP 11/01/21 06:46 15 mg Q6HR PRN Administration Pain Lorazepam 0.5 mg 10/29/21 05:43 Lorazepam 0.5 Mg Tab PO Q6HR PRN Anxiety Metoprolol Tartrate 25 mg 10/29/21 09:00 Metoprolol Tartrate 25 Mg Tab PO DAILY RAFFAELE Morphine Sulfate 4 mg 10/29/21 05:43 Morphine Sulfate 4 Mg/Ml Syringe IV Q4HR PRN Severe Pain Naloxone HCl 0.2 mg 10/29/21 05:43 Naloxone 0.4 Mg/Ml 1 Ml Vial IV Q2M PRN Opioid Reversal Ondansetron HCl 4 mg 10/29/21 05:43 Ondansetron 4 Mg/2 Ml Vial IVP Q8HR PRN Nausea And Vomiting Ondansetron HCl 8 mg 10/29/21 08:05 Ondansetron Odt 8 Mg Tab.Rapdis PO Q12H PRN Nausea Pantoprazole Sodium 40 mg 10/29/21 09:00 Pantoprazole 40 Mg Tablet PO BID RAFFAELE Intake and Output 10/28/21 10/29/21 10/29/21 22:59 06:59 14:59 Other: Weight 65.771 kg 10/29/21 04:00 10/29/21 04:00
[2021-10-29 11:25] VITALS: BP 126/71; TEMP 97.8
--- NOTE | 2021-10-29 14:27 | P.DS ---
Providers Date of admission: 10/29/21 05:43 Expected date of discharge: 10/29/21 Attending physician: Leslee Do MD Consults: 10/29/21 05:43 Consult Physician Routine Consulting Provider: Jocelynn Dawkins Consult Reason/Comments: cp Do you want consulting provider notified?: Yes Primary care physician: Sona Sommer MD Hospital Course: History of present illness: History of present illness: 50-year-old female with past medical history significant for hypertension, bilateral vestibular hypofunction and hypothyroidism patient presents to the emergency room with a chief complaint of a skipped beat with left-sided chest pain radiated to the left armpit and back. The patient is currently pain is a pressure-like pain 7-8 out of 10 not associated with shortness of breath. Pain was relieved by Toradol in the emergency room. Patient had similar presentation a year ago with negative stress test. Patient stated that the patient was associated with nausea and she vomited twice. She denied any resistant nausea or vomiting. Patient denies any fever or chills patient was complaining of headache all day yesterday. She denies any symptoms of 19 infection. No recent travel sick contacts Hospital course in detail the problem list: #Left-sided Chest pain -Pain was reproducible by palpation -Was relieved by Toradol -Acute coronary syndrome has been ruled out -EKG shows normal sinus rhythm with nonspecific ST-T wave changes -Cardiology cleared the patient for discharge -Negative d-dimer is #Overcorrected hypothyroidism -Low TSH -Decrease levothyroxine to 25 g daily. Prescription was given on discharge patient will need to repeat TSH in 6-8 weeks with PCP #Bilateral vestibular hypofunction #Hypertension -Controlled resume metoprolol 25 mg daily #Dyslipidemia -Resume statins #Depression -Resume Lexapro Patient Condition at Discharge: Stable Plan - Discharge Summary New Discharge Prescriptions: New Levothyroxine Sodium 25 mcg PO DAILY #30 tablet Continue Pantoprazole Sodium [Protonix] 40 mg PO BID Metoprolol Tartrate [Lopressor] 25 mg PO DAILY [id number] [id number] [Excedrin] 2 tab PO Q4HR PRN PRN Reason: Headache Atorvastatin [Lipitor] 20 mg PO HS Ondansetron Odt [Zofran ODT] 8 mg PO Q12H PRN PRN Reason: Nausea Escitalopram [Lexapro] 10 mg PO DAILY Discontinued Levothyroxine Sodium [Synthroid] 50 mcg PO DAILY Discharge Medication List Pantoprazole Sodium [Protonix] 40 mg PO BID 12/30/16 [History] Metoprolol Tartrate [Lopressor] 25 mg PO DAILY 08/29/20 [History] Sqvboqk-Cdmx-Dnuh [id number] [Excedrin] 2 tab PO Q4HR PRN 09/23/20 [History] Atorvastatin [Lipitor] 20 mg PO HS 01/15/21 [History] Escitalopram [Lexapro] 10 mg PO DAILY 10/29/21 [History] Levothyroxine Sodium 25 mcg PO DAILY #30 tablet 10/29/21 [Rx] Ondansetron Odt [Zofran ODT] 8 mg PO Q12H PRN 10/29/21 [History] Follow up Appointment(s)/Referral(s): Sona Sommer MD [Primary Care Provider] - 1-2 days Patient Instructions/Handouts: Chest Pain (ED)
[2021-10-29 14:58] VITALS: PULSE 78; RESP 16
[2021-10-29 15:41] LABS: Chol/HDL Ratio 3.45 Ratio; LDL Cholesterol,Calculated 63.8 mg/dL (0.0-131.0)
--- NOTE | 2021-10-29 17:29 | CA ---
Transthoracic Echo Report Name: Padmini Noble Age: 50 Gender: F : 1970 Exam Date: 10/29/2021 12:40 Exam Location: [facility] Ht (in): 62 Wt (lb): 145 Ordering Physician: Isabella Wade Attending/Referring Phys: [id number], Mauro Supervisor Order Takers Jessie Nielsen, IVETTE Procedure CPT: Indications: LV function Cardiac Hx: Technical Quality: Good Contrast 1: Total Dose (mL): Contrast 2: Total Dose (mL): MEASUREMENTS (Male / Female) Normal Values 2D ECHO LV Diastolic Diameter PLAX 3.4 cm 4.2 - 5.9 / 3.9 - 5.3 cm LV Systolic Diameter PLAX 2.0 cm IVS Diastolic Thickness 1.2 cm 0.6 - 1.0 / 0.6 - 0.9 cm LVPW Diastolic Thickness 1.1 cm 0.6 - 1.0 / 0.6 - 0.9 cm LV Relative Wall Thickness 0.7 RV Internal Dim ED PLAX 3.2 cm LA Systolic Diameter LX 3.4 cm 3.0 - 4.0 / 2.7 - 3.8 cm LA Volume 42.4 cm??? 18 - 58 / 22 - 52 cm??? M-MODE Aortic Root Diameter MM 2.9 cm MV E Point Septal Separation 0.4 cm AV Cusp Separation MM 2.0 cm DOPPLER AV Peak Velocity 150.9 cm/s AV Peak Gradient 9.1 mmHg MV Area PHT 3.1 cm??? Mitral E Point Velocity 95.0 cm/s Mitral A Point Velocity 81.1 cm/s Mitral E to A Ratio 1.2 MV Deceleration Time 247.6 ms MV E' Velocity 9.4 cm/s Mitral E to MV E' Ratio 10.1 TR Peak Velocity 231.1 cm/s TR Peak Gradient 21.4 mmHg Right Ventricular Systolic Press 26.2 mmHg FINDINGS Left Ventricle Left ventricular ejection fraction is estimated at 60-65 %. Left ventricular cavity size normal. Borderline left ventricular hypertrophy. Right Ventricle Normal right ventricular size and function. Right ventricular systolic pressure within normal limits. Right Atrium Normal right atrial size. Left Atrium Normal left atrial size. No evidence for an atrial septal defect. Mitral Valve Mild mitral regurgitation. Aortic Valve Trileaflet aortic valve. No aortic valve stenosis or regurgitation. Tricuspid Valve Trace to mild tricuspid regurgitation. Pulmonic Valve Structurally normal pulmonic valve. Pericardium Normal pericardium. No pericardial effusion. Aorta Normal size aortic root and proximal ascending aorta. CONCLUSIONS Normal LV function Mild mitral regurgitation Previewed by: Dr. Osei Sosa MD (Electronically Signed) Final Date: 29 October 2021 17:28
[2021-10-29] MEDS ORDERED: ATORVASTATIN 20 MG TAB PO SCH (21:00)
[2021-10-30] MEDS ORDERED: ENOXAPARIN 40 MG/0.4 ML SYRINGE SQ SCH (09:00)
--- NOTE | 2021-10-30 10:46 | ECHOS ---
STRESS ECHOCARDIOGRAM INDICATION: Chest pain. BASELINE HEART RATE: 57 BASELINE BLOOD PRESSURE: 129/80 MAXIMUM HEART RATE: 117 MAXIMUM BLOOD PRESSURE: 178/78 85% MPHR: 145 100% MPHR: 170 METS: 4.8 MAXIMUM STAGE REACHED: II TOTAL EXERCISE TIME: 5:10 RESULTS: Baseline EKG shows sinus rhythm, normal axis, normal intervals. Patient exercised on Mayur protocol for a total of 5 minutes achieving 6 METS, 68% of predicted maximal heart rate, without chest pain. The test was stopped at this stage due to dizziness. There was no ST-segment depression. Baseline echo shows normal left ventricular size, wall motion and systolic function. Postexercise there is normal hyperdynamic response of all segments of myocardium noted. CONCLUSIONS: Inconclusive stress echo secondary to inability to attain target heart rate. Normal LV function, mild mitral regurgitation. Normal LV systolic function. MMODL / IJN: [id number] /
== END 2021-10-29 14:59 | disposition home or self-care (01) ==
LOC: EC 23:58 → 6NMEDSUR 10-29 05:43
PROVIDERS: ADMIT Internal Medicine; ATTEND Internal Medicine
DX: R07.89 Other chest pain (principal); H81.90 Unspecified disorder of vestibular function, unspecified ear; E03.9 Hypothyroidism, unspecified; T38.1X5A Adverse effect of thyroid hormones and substitutes, initial encounter; I10 Essential (primary) hypertension; I08.1 Rheumatic disorders of both mitral and tricuspid valves; K21.9 Gastro-esophageal reflux disease without esophagitis; E78.5 Hyperlipidemia, unspecified; G62.9 Polyneuropathy, unspecified; E23.6 Other disorders of pituitary gland; M25.561 Pain in right knee; F32.A Depression, unspecified; F41.9 Anxiety disorder, unspecified; F17.200 Nicotine dependence, unspecified, uncomplicated; Z79.890 Hormone replacement therapy; Z79.899 Other long term (current) drug therapy; Z88.8 Allergy status to other drugs, medicaments and biological substances; Z91.041 Radiographic dye allergy status; Z88.5 Allergy status to narcotic agent; Z91.013 Allergy to seafood; Z90.49 Acquired absence of other specified parts of digestive tract; Z98.890 Other specified postprocedural states; Z80.1 Family history of malignant neoplasm of trachea, bronchus and lung; Z80.8 Family history of malignant neoplasm of other organs or systems; Z82.49 Family history of ischemic heart disease and other diseases of the circulatory system
CPT/HCPCS: 96376; 96374; 96375; 99285; 36415; 93005; 93306; 93351; 85379; 84439; 83880; 80061; 80053; 84443 ×2; 83735; 84100; 84436; 84484; 85025; 83036; G0378; J1200; J2405; J1885

== ENCOUNTER 2021-11-03 12:05 | Emergency (ER) | payer OTHER ==
[2021-11-03 12:17] VITALS: BP 133/86; PULSE 79; TEMP 98.3
--- NOTE | 2021-11-03 12:36 | ED ---
General Adult HPI - General Chief complaint: Upper Respiratory Infection Stated complaint: Covid+/infusion Time Seen by Provider: 11/03/21 12:30 Source: patient, RN notes reviewed, old records reviewed Mode of arrival: ambulatory Limitations: no limitations - History of Present Illness Initial comments: 50-year-old female presents to the emergency room with complaints of 2 days of body aches, cough and low-grade fever. Patient denies any difficulty breathing or chest pain. No nausea vomiting diarrhea. Patient states that she did taken at home coronavirus test that was positive. She has not been vaccinated against coronavirus. She is requesting the monoclonal antibodies infusion. She does have a history of lupus and hypertension. She is a pack-a-day smoker. -: days(s) (2) Severity scale (1-10): 5 Quality: aching Consistency: constant Improves with: none Associated Symptoms: cough - Related Data Home Medications Medication Instructions Recorded Confirmed Pantoprazole Sodium [Protonix] 40 mg PO BID 12/30/16 10/29/21 Metoprolol Tartrate [Lopressor] 25 mg PO DAILY 08/29/20 10/29/21 Qrtqsnq-Vqfo-Ymer [id number] 2 tab PO Q4HR PRN 09/23/20 10/29/21 [Excedrin] Atorvastatin [Lipitor] 20 mg PO HS 01/15/21 10/29/21 Escitalopram [Lexapro] 10 mg PO DAILY 10/29/21 10/29/21 Ondansetron Odt [Zofran ODT] 8 mg PO Q12H PRN 10/29/21 10/29/21 Previous Rx's Medication Instructions Recorded Levothyroxine Sodium 25 mcg PO DAILY #30 tablet 10/29/21 Allergies Allergy/AdvReac Type Severity Reaction Status Date / Time Iodinated Contrast Media Allergy Anaphylaxis Verified 11/03/21 12:17 [Iodinated Contrast Media - IV Dye] shellfish derived [Shellfish] Allergy Anaphylaxis Verified 11/03/21 12:17 hydrocodone AdvReac Itching Verified 11/03/21 12:17 steroids AdvReac Rapid Uncoded 11/03/21 12:17 Heart Rate Review of Systems ROS Statement: Those systems with pertinent positive or pertinent negative responses have been documented in the HPI. ROS Other: All systems not noted in ROS Statement are negative. 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 Arrythmia. Rt knee pain History of Any Multi-Drug Resistant Organisms: None Reported Past Surgical History: Cholecystectomy, Orthopedic Surgery Additional Past Surgical History / Comment(s): Rt knee scope 12/2019, Lt knee scope. Past Anesthesia/Blood Transfusion Reactions: Family History of Problems w/ Anesthesia, Motion Sickness, Postoperative Nausea & Vomiting (PONV) Additional Past Anesthesia/Blood Transfusion Reaction / Comment(s): Mother had PONV Past Psychological History: Anxiety Smoking Status: Current every day smoker Past Alcohol Use History: None Reported Past Drug Use History: None Reported - Past Family History Mother Family Medical History: Cancer Additional Family Medical History / Comment(s): lung cancer 2006 Father Family Medical History: Cancer Additional Family Medical History / Comment(s): skin cancer General Exam Limitations: no limitations General appearance: alert, in no apparent distress Head exam: Present: atraumatic, normocephalic, normal inspection Eye exam: Absent: scleral icterus, conjunctival injection, periorbital swelling, periorbital tenderness ENT exam: Present: normal oropharynx, mucous membranes moist Neck exam: Present: normal inspection, full ROM. Absent: tenderness, meningismus Respiratory exam: Present: normal lung sounds bilaterally. Absent: respiratory distress, accessory muscle use Cardiovascular Exam: Present: regular rate GI/Abdominal exam: Present: soft. Absent: distended, tenderness, rigid Extremities exam: Present: normal inspection, full ROM, normal capillary refill. Absent: tenderness, pedal edema Back exam: Present: normal inspection, full ROM. Absent: tenderness, CVA tenderness (R), CVA tenderness (L), rash noted Neurological exam: Present: alert, oriented X3, normal gait Psychiatric exam: Present: normal affect, normal mood Skin exam: Present: warm, dry, intact, normal color. Absent: cyanosis, diaphoretic, petechiae, pallor Course Vital Signs 11/03/21 11/03/21 12:12 13:01 Temperature 98.3 F Pulse Rate 79 Respiratory 20 18 Rate Blood Pressure 133/86 O2 Sat by Pulse 96 Oximetry Medical Decision Making - Medical Decision Making Patient did test positive for coronavirus today. She has not been vaccinated but she does have a history of prior infection. She was requesting monoclonal antibodies. She did tolerate the infusion without any complications. Lungs sounds are clear and vital signs are stable. She was discharged home to follow up with her primary care doctor directed to return to the emergency with a new concerning symptoms. Self quarantine for 10 days. Patient is agreeable to this plan and care. Case discussed with Dr. Silveira. - Lab Data Lab Results 11/03/21 Range/Units 12:46 Coronavirus (PCR) Detected A (Not Detectd) Disposition Clinical Impression: COVID-19 Disposition: HOME SELF-CARE Condition: Good Instructions (If sedation given, give patient instructions): COVID-19 (Coronavirus Disease 2019) (ED) Additional Instructions: Increase your fluid intake. You can take vitamin C, vitamin D and zinc to improve immune health. Return to the emergency room with a new concerning symptoms including chest pain or difficulty in breathing. Take Tylenol or Motrin as needed for body aches. Self Quarantine for 10 days from symptom onset. If after 5 days you have no symptoms you can going to public wearing just a mask. Is patient prescribed a controlled substance at d/c from ED?: No Referrals: Sona Sommer MD [Primary Care Provider] - 1-2 days Time of Disposition: 14:26
[2021-11-03 13:11] VITALS: RESP 18
[2021-11-03] MEDS ORDERED: BEBTELOVIMAB (EUA) 175 MG/2 ML VIAL IV ONE (13:30)
== END 2021-11-03 14:58 | disposition home or self-care (01) ==
LOC: EC 12:05
DX: U07.1 COVID-19 (principal); I10 Essential (primary) hypertension; E78.5 Hyperlipidemia, unspecified; K21.9 Gastro-esophageal reflux disease without esophagitis; F41.9 Anxiety disorder, unspecified; E07.9 Disorder of thyroid, unspecified; F17.200 Nicotine dependence, unspecified, uncomplicated; Z79.82 Long term (current) use of aspirin; Z79.890 Hormone replacement therapy; Z79.899 Other long term (current) drug therapy
CPT/HCPCS: 87635; 99283; Q0222

== ENCOUNTER 2021-11-27 09:06 | Day surgery (SDC) | payer OTHER ==
[2021-11-26 11:09] VITALS: BMI 26.5
[~2021-11-27 09:06] MED LIST changes: -DEXAMETHASONE SOD PHOSPHATE 4 MG/ML 1 ML VIAL IV ONE; -HYDROmorphone 0.5 MG/0.5 ML SYRINGE IVP PRN; +LACTATED RINGERS 1,000 ML IV SCH; +LIDOCAINE 1% (10MG/ML) FOR IV START INTRADERMA PRN; -ONDANSETRON 4 MG/2 ML VIAL IVP ONE
[2021-11-27 09:34] VITALS: TEMP 97.1
[2021-11-27] MEDS ORDERED: LIDOCAINE 2% INJ 20 MG/ML (2 ML VIAL) ONE (10:15)
[2021-11-27] MEDS ORDERED: PROPOFOL 10 MG/ML 20 ML VIAL IV ONE (10:15)
--- NOTE | 2021-11-27 10:28 | P.PCN ---
Date of Procedure: 11/27/21 Procedure(s) Performed: BRIEF HISTORY: Patient is a 51-year-old, pleasant, white female scheduled for an upper endoscopy as a part of evaluation of long-standing history of GERD. Lately she is been having epigastric discomfort associated with nausea and intermittent dark colored stools. She has been on Protonix 40 mg twice daily.. PROCEDURE PERFORMED: Esophagogastroduodenoscopy with biopsy. PREOPERATIVE DIAGNOSIS: Long-standing history of GERD/intermittent epigastric pain and nausea. IV sedation per anesthesia. PROCEDURE: After informed consent was obtained, the patient was brought into the endoscopy unit. IV sedation was administered by Anesthesia under continuous monitoring. Initially the Olympus GIF-140 video endoscope was inserted into the mouth. Esophagus intubated without any difficulty. It was gradually advanced into the stomach and duodenum and carefully examined. The bulb and the second part of the duodenum appeared normal. The scope at this time was withdrawn to the stomach, adequately insufflated with air, and upon careful examination, mucosa of the antrum, had mild diffuse gastritis and biopsies were done from this area. No erosions or ulcerations identified. The body, cardia and the fundus appeared normal. The scope was then withdrawn into the esophagus. Small sliding type hiatal hernia noted. The GE junction was located at 39 cm from the incisors. It appeared slightly irregular. The esophagus appeared normal. There were no erosions or ulcerations seen and, biopsies were done from the distal esophagus the patient tolerated the procedure well. IMPRESSION: 1. Small sliding type hiatal hernia with no evidence of esophagitis or Don's esophagus. 2. Mild antral gastritis. RECOMMENDATIONS: The findings of this examination were discussed with the patient as well as her family. She was advised to follow with the biopsy results. She will continue with Protonix 40 mg twice daily and follow antireflux measures..
[2021-11-27 11:05] VITALS: BP 114/68; PULSE 56; RESP 16
== END 2021-11-27 11:15 | disposition home or self-care (01) ==
LOC: ORWHC2ENDO 09:06
PROVIDERS: ATTEND Internal Medicine Gastroenterology
DX: K21.00 Gastro-esophageal reflux disease with esophagitis, without bleeding (principal); K29.50 Unspecified chronic gastritis without bleeding; K44.9 Diaphragmatic hernia without obstruction or gangrene; I10 Essential (primary) hypertension; E78.5 Hyperlipidemia, unspecified; F17.210 Nicotine dependence, cigarettes, uncomplicated; E03.9 Hypothyroidism, unspecified; F41.9 Anxiety disorder, unspecified; Z88.5 Allergy status to narcotic agent; Z91.041 Radiographic dye allergy status; Z79.899 Other long term (current) drug therapy; Z88.8 Allergy status to other drugs, medicaments and biological substances; Z91.013 Allergy to seafood; Z79.890 Hormone replacement therapy; Z80.1 Family history of malignant neoplasm of trachea, bronchus and lung; Z80.8 Family history of malignant neoplasm of other organs or systems
CPT/HCPCS: 88305; 43239; J2704; J2001

== ENCOUNTER → 2022-03-28 | Outpatient (CLI) | payer OTHER ==
--- NOTE | 2022-03-29 05:14 | MR ---
EXAMINATION TYPE: MR knee RT wo con DATE OF EXAM: 03/28/2022 COMPARISON: None HISTORY: Knee pain Multiplanar multi echo imaging of the right knee performed without contrast. There is mild knee joint effusion. The anterior and posterior cruciate ligaments appear intact. The c ollateral ligaments are intact. There is abnormal extensive increased signal in the anterior horn of the lateral meniscus. There is some narrowing of the lateral joint space. The medial meniscus appears fairly normal. No evidence of a fracture. No focal bone destruction. IMPRESSION: Knee joint effusion. Extensive complex tear of the anterior horn lateral meniscus. No evidence of lig amentous tear. Mild osteoarthritis mainly in the lateral joint space. There is mild lateral displacem ent of the lateral meniscus. There is significant loss of articular cartilage in the lateral joint sp kalyan. There are small thin popliteal cyst noted measuring 5 mm in thickness.
== END | disposition home or self-care (01) ==
LOC: RADMRIMAIN 11:05
PROVIDERS: ATTEND Orthopaedic Surgery
DX: M25.461 Effusion, right knee (principal); M23.341 Other meniscus derangements, anterior horn of lateral meniscus, right knee; M17.11 Unilateral primary osteoarthritis, right knee; M71.21 Synovial cyst of popliteal space [Baker], right knee; M25.561 Pain in right knee

== ENCOUNTER → 2022-05-08 | Outpatient (CLI) | payer OTHER ==
[2022-05-08 23:45] LABS: Basophils # (A) 0.08 X 10*3/uL (0.00-0.10); Basophils % (A) 0.8 %; Eosinophils # (A) 0.39 X 10*3/uL (0.04-0.35); Eosinophils % (A) 4.1 %; HCT 40.9 % (37.2-46.3); HGB 13.5 g/dL (12.0-15.0); Immature Grans, Automated 0.6 %; Lymphocytes # (A) 3.23 X 10*3/uL (0.90-5.00); Lymphocytes % (A) 33.6 %; MCH 30.7 pg (27.0-32.0); Mean Platelet Volume 8.8 fL (9.5-12.2); Monocytes # (A) 0.84 X 10*3/uL (0.20-1.00); Monocytes % (A) 8.7 %; NRBC Per 100 WBC 0 /100 WBCS (0.0-0.0); Neutrophils # (A) 5.02 X 10*3/uL (1.80-7.70); Neutrophils % (A) 52.2 %; Platelet Count 383 X 10*3/uL (140-440); RDW 13.5 % (11.5-14.5); WBC 9.62 X 10*3/uL (4.50-10.00)
== END | disposition home or self-care (01) ==
LOC: LABPAT 15:51
PROVIDERS: ATTEND Orthopaedic Surgery
DX: Z01.812 Encounter for preprocedural laboratory examination (principal); M23.91 Unspecified internal derangement of right knee
CPT/HCPCS: 85025

== ENCOUNTER 2022-05-22 11:26 | Day surgery (SDC) | payer OTHER ==
[2022-05-19 14:59] VITALS: BMI 25.2
--- NOTE | 2022-05-21 22:17 | HP ---
HISTORY AND PHYSICAL DATE OF SURGERY: 05/22/2022 HISTORY OF PRESENT ILLNESS: Padmini Noble is a 51-year-old patient seen for progressive right knee pain. We discussed options for treatment. She elected to proceed with right knee arthroscopy. Consent was obtained. PAST MEDICAL HISTORY: Hypothyroidism, gastroesophageal reflux disease, and hypertension. PAST SURGICAL HISTORY: Cholecystectomy. DAILY MEDICATIONS: 1. Protonix. 2. Levothyroxine. 3. Ibuprofen. 4. Norvasc. ALLERGIES: IV dye. SOCIAL HISTORY: She denies tobacco use. PHYSICAL EVALUATION OF THE RIGHT KNEE: Range of motion 0-100 degrees. Mild effusion. Tenderness in medial lateral joint line. Positive medial Milind's. Positive lateral Milind's. Ligaments are stable. Hip rotation is without pain. Distal neurovascular exam is intact. RADIOGRAPHS: Right knee radiographs revealed some osteoarthritic changes. MRI right knee revealed lateral meniscal tear. IMPRESSION: 1. Internal derangement of right knee with lateral meniscal tear. 2. Hypertension. 3. Hypothyroidism. PLAN: Right knee arthroscopy with partial lateral meniscectomy and debridement. MMODL / IJN: [id number] /
[~2022-05-22 11:26] MED LIST changes: +DEXAMETHASONE SOD PHOSPHATE 4 MG/ML 1 ML VIAL IV ONE; +HYDROmorphone 0.5 MG/0.5 ML SYRINGE IVP PRN; +MIDAZOLAM 2 MG/2 ML VIAL IV PRN; +ONDANSETRON 4 MG/2 ML VIAL IVP ONE
[2022-05-22] MEDS ORDERED: SCOPOLAMINE 1 MG/72 HR PATCH TRANSDERM ONE (12:04)
[2022-05-22] MEDS ORDERED: ePHEDrine 50 MG/ML 1 ML VIAL ONE (12:20)
[2022-05-22] MEDS ORDERED: LIDOCAINE 2% INJ 20 MG/ML (2 ML VIAL) ONE (12:20)
[2022-05-22] MEDS ORDERED: fentaNYL (PF) 50 MCG/ML 2 ML AMP ONE (12:20)
[2022-05-22] MEDS ORDERED: SUCCINYLCHOLINE CHLORIDE 200 MG/10 ML VIAL IV ONE (12:20)
[2022-05-22] MEDS ORDERED: PROPOFOL 10 MG/ML 20 ML VIAL IV ONE (12:20)
[2022-05-22] MEDS ORDERED: LIDOCAINE 4% LTA KIT (4 ML) TOPICAL ONE (12:20)
[2022-05-22] MEDS ORDERED: BUPIVACAINE (PF) 0.25% 30 ML VIAL SQ ONE ×2 (12:53→12:57)
[2022-05-22 13:17] VITALS: TEMP 97
--- NOTE | 2022-05-22 13:31 | P.OP ---
Date of Procedure: 05/22/22 Preoperative Diagnosis: Internal derangement right knee Postoperative Diagnosis: 1. Tear medial and lateral meniscus right knee 2. Reactive synovitis medial and suprapatellar compartments right knee Procedure(s) Performed: 1. Arthroscopic partial medial and lateral meniscectomy right knee 2. Arthroscopic partial synovectomy medial and suprapatellar compartments right knee Anesthesia: JOSE, local Surgeon: Jerrod Jarvis Estimated Blood Loss (ml): 7 Pathology: none sent Condition: stable Disposition: PACU Indications for Procedure: 51-year-old patient seen with progressive right knee pain. After having treatment options discussed, she elected to proceed with arthroscopy. Operative Findings: See description of procedure Description of Procedure: Patient was taken to the operative suite. Patient underwent a general anesthetic by the department of anesthesia. Patient was given preoperative antibiotics. The right lower extremity was placed in a well-padded arthroscopic leg lazar. The right leg was prepped and draped in the normal sterile orthopedic fashion. A lateral parapatellar and suprapatellar incision was made. Trochars were inserted. Arthroscopy was initiated. Suprapatellar pouch revealed diffuse thick reactive synovitis. The patellofemoral joint appeared to articulate congruently. There was grade 1 chondromalacia of the patella with no tears. The scope was guided into the medial gutter. No loose bodies or plica were identified. The scope was then guided into the medial compartment. A medial parapatellar incision was made. Trocar inserted followed by probe. There was a radial tear posterior horn medial meniscus. There were grade 2/3 chondromalacia changes of the medial compartment without tears. There was some reactive synovitis anteriorly. I performed a partial medial meniscectomy getting down to stable meniscal tissue. I performed a partial synovectomy. The residual meniscus was stable. There was good decompression of the synovitis. Scope and probe were then guided into the intercondylar notch. Cruciates were identified, probed and found to be stable. The scope and probe were then guided into lateral compartment. To radial tear mid body lateral meniscus. There were grade 3 chondromalacia changes lateral compartment with no tears. There was no synovitis synovitis. I performed a partial lateral meniscectomy getting down to stable meniscal tissue. The residual meniscus was probed and was found to be stable. The scope was in guided back into the suprapatellar compartment. I introduced a motorized shaver into the suprapatellar compartment. I debrided some piecemeal fragments of meniscus that I encountered. I performed a partial synovectomy. The shaver was removed. There was good decompression of the synovitis. I took one more look around the entire knee, no residual debris. Instruments were now removed from the joint. The joint was infiltrated with .25% Marcaine. Steri-Strips were applied to the portal sites. Sterile dressin gs were applied. The patient was placed into a GABBIE hose. No tourniquet was utilized. The patient was awakened, transferred to a bed and taken to recovery stable satisfactory condition.
[2022-05-22 13:59] VITALS: RESP 16
[2022-05-22] MEDS ORDERED: HYDROcodone/APAP 5-325MG 1 EACH TAB ONE (14:11)
[2022-05-22] MEDS ORDERED: diphenhydrAMINE 50 MG/ML 1 ML VIAL ONE (14:12)
[2022-05-22] MEDS ORDERED: HYDROcodone/APAP 5-325MG 1 EACH TAB PO ONE (14:15)
[2022-05-22] MEDS ORDERED: diphenhydrAMINE 50 MG/ML 1 ML VIAL IVP ONE (14:15)
[2022-05-22 14:37] VITALS: BP 126/68; PULSE 60
== END 2022-05-22 15:20 | disposition home or self-care (01) ==
LOC: OR 11:26
PROVIDERS: ATTEND Orthopaedic Surgery
DX: S83.241A Other tear of medial meniscus, current injury, right knee, initial encounter (principal); S83.281A Other tear of lateral meniscus, current injury, right knee, initial encounter; M65.9 Synovitis and tenosynovitis, unspecified; E03.9 Hypothyroidism, unspecified; K21.9 Gastro-esophageal reflux disease without esophagitis; I10 Essential (primary) hypertension; Z91.041 Radiographic dye allergy status; F17.210 Nicotine dependence, cigarettes, uncomplicated; F32.A Depression, unspecified; Z79.1 Long term (current) use of non-steroidal anti-inflammatories (NSAID); Z79.890 Hormone replacement therapy; Z90.49 Acquired absence of other specified parts of digestive tract; Z79.899 Other long term (current) drug therapy; X58.XXXA Exposure to other specified factors, initial encounter
CPT/HCPCS: 29880; J2250; J0330; J1200; J1100; J2405; J0690; J3010; J2704; J2001

== ENCOUNTER → 2022-12-24 | Outpatient (CLI) | payer OTHER ==
--- NOTE | 2022-12-26 17:39 | MR ---
EXAMINATION TYPE: MR knee LT wo con DATE OF EXAM: 12/24/2022 COMPARISON: Radiographs 10/28/2022 HISTORY: 52 year-old female M25.562, Lt knee pain TECHNIQUE: Multiplanar, multisequence imaging of the left knee is performed without IV contrast. FINDINGS: There is fluid interspersed along the intact fibers of the ACL. PCL, MCL, and LCL complex are intact. The medial meniscus is intact. Mild irregular cartilage loss along the mid weightbearing aspect of th e medial compartment. There is an anterior root tear of the lateral meniscus with extruded meniscal body. Mild irregular ca rtilage loss along the medial weightbearing aspect of the lateral compartment. Moderate thickness focal cartilage fissuring along the mid patella with reactive subchondral marrow s ignal change. Trochlear articular cartilage is grossly maintained. Extensor mechanism is intact. Some focal edema within Hoffa's fat located inferior and lateral to the patella. Small knee joint effusion. There is a trace 3.2 cm Ortiz's cyst. Normal popliteal artery anatomy in muscle bulk. IMPRESSION: 1. Correlate for a grade 1 ACL sprain. 2. Significant anterior root tear of the lateral meniscus with an extruded lateral meniscal body. 3. Mild degenerative change along the mid weightbearing aspect of both medial and lateral compartment s. 4. Within the patellofemoral compartment, there is moderate thickness focal cartilage fissuring along the mid patella. 5. Some focal edema in Hoffa's fat inferior and lateral to the patella may be seen in the setting of fat pad impingement syndrome. Clinically correlate.
== END | disposition home or self-care (01) ==
LOC: RADMRIMAIN 15:19
PROVIDERS: ATTEND Orthopaedic Surgery
DX: M23.242 Derangement of anterior horn of lateral meniscus due to old tear or injury, left knee (principal); R60.0 Localized edema; M17.12 Unilateral primary osteoarthritis, left knee

== ENCOUNTER → 2023-01-21 | Outpatient (CLI) | payer OTHER ==
[2023-01-21 21:26] LABS: Basophils # (A) 0.07 X 10*3/uL (0.00-0.10); Basophils % (A) 0.7 %; Eosinophils # (A) 0.26 X 10*3/uL (0.04-0.35); Eosinophils % (A) 2.4 %; HCT 42.5 % (37.2-46.3); HGB 14.1 d/dL (12.0-15.0); MCH 30.6 pg (27.0-32.0); MCHC 33.2 d/dL (32.0-37.0); MCV 92.2 FL (80.0-97.0); Mean Platelet Volume 9.1 FL (9.5-12.2); Monocytes # (A) 0.82 X 10*3/uL (0.20-1.00); Monocytes % (A) 7.7 %; NRBC Per 100 WBC 0 X 10*3/uL (0.00-0.01); Neutrophils # (A) 6.16 X 10*3/uL (1.80-7.70); Neutrophils % (A) 57.8 %; Platelet Count 418 X 10*3/uL (140-440); RBC 4.61 X 10*6/uL (4.10-5.20); WBC 10.65 X 10*3/uL (4.50-10.00)
[2023-01-21 21:28] LABS: Anion Gap 13.6 mmol/L (4.00-12.00); Carbon Dioxide 26.4 mmol/L (21.6-31.8); Potassium 4.1 mmol/L (3.5-5.5)
== END | disposition home or self-care (01) ==
LOC: LABWHC1 15:05
PROVIDERS: ATTEND Orthopaedic Surgery
DX: Z01.812 Encounter for preprocedural laboratory examination (principal); M23.92 Unspecified internal derangement of left knee
CPT/HCPCS: 36415; 80051; 85025; 93005

== ENCOUNTER 2023-02-05 11:04 | Emergency (ER) | payer OTHER ==
[2023-02-05 11:57] VITALS: RESP 18
[2023-02-05] MEDS ORDERED: KETOROLAC 15 MG/ML 1 ML VIAL IM STA (12:55)
[2023-02-05] MEDS ORDERED: LIDOCAINE 5% PATCH TOPICAL STA (12:55)
--- NOTE | 2023-02-05 13:28 | XR ---
EXAMINATION TYPE: XR knee complete RT DATE OF EXAM: 02/05/2023 CLINICAL HISTORY: pain TECHNIQUE: Three views of the right knee are obtained. COMPARISON: None. FINDINGS: There is no acute fracture/dislocation. The tri-compartment joint spaces appear within no rmal limits. The overlying soft tissue appears unremarkable. IMPRESSION: There is no acute fracture or dislocation.ICD 10 NO FRACTURE, INITIAL EVALUATION
--- NOTE | 2023-02-05 14:33 | ED ---
General Adult HPI - General Chief complaint: Extremity Injury, Lower Stated complaint: Rt knee pain Time Seen by Provider: 02/05/23 12:18 Source: patient, RN notes reviewed Mode of arrival: ambulatory Limitations: no limitations - History of Present Illness Initial comments: 52-year-old female presents emergency department with chief complaint of right knee pain and locking 2 days. She reports that she is evaluated at the [facility] yesterday and an x-ray was obtained at that time. She states that this was normal. She was placed in a knee immobilizer and given some medications for pain. She states that she was started on a steroid at that time. She reports that she is having continued pain and wanted to be evaluated here as she follows with Dr. Jarvis. She denies any fever, chills. She reports that she has significant decreased mobility in the right knee and feels that it is locked. She denies any swelling, redness to the area. - Related Data Home Medications Medication Instructions Recorded Confirmed Pantoprazole Sodium [Protonix] 40 mg PO BID 12/30/16 01/29/23 Metoprolol Tartrate [Lopressor] 25 mg PO HS 08/29/20 01/29/23 [id number] 2 tab PO Q4HR PRN 09/23/20 01/29/23 [Excedrin] Atorvastatin [Lipitor] 20 mg PO HS 01/15/21 01/29/23 Escitalopram [Lexapro] 10 mg PO HS 10/29/21 01/29/23 Ondansetron Odt [Zofran ODT] 8 mg PO Q12H PRN 10/29/21 01/29/23 Levothyroxine Sodium 25 mcg PO QAM 11/26/21 01/29/23 amLODIPine [Norvasc] 5 mg PO QAM 11/26/21 01/29/23 Previous Rx's Medication Instructions Recorded HYDROcodone/APAP 5-325MG [Bittinger 1 tab PO Q6HR PRN #12 tab 01/29/23 5-325] Cyclobenzaprine [Flexeril] 10 mg PO TID PRN #15 tab 02/05/23 Ketorolac [Toradol] 10 mg PO Q8HR #15 tab 02/05/23 Allergies Allergy/AdvReac Type Severity Reaction Status Date / Time Iodinated Contrast Media Allergy Anaphylaxis Verified 02/05/23 11:53 [Iodinated Contrast Media - IV Dye] shellfish derived [Shellfish] Allergy Anaphylaxis Verified 02/05/23 11:53 hydrocodone AdvReac Itching Verified 02/05/23 11:53 steroids AdvReac Rapid Uncoded 02/05/23 11:53 Heart Rate Review of Systems ROS Statement: Those systems with pertinent positive or pertinent negative responses have been documented in the HPI. ROS Other: All systems not noted in ROS Statement are negative. 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 Arrythmia. Rt knee pain History of Any Multi-Drug Resistant Organisms: None Reported Past Surgical History: Cholecystectomy, Orthopedic Surgery Additional Past Surgical History / Comment(s): Rt knee scope 12/2019, Lt knee scope. Past Anesthesia/Blood Transfusion Reactions: Family History of Problems w/ Anesthesia, Motion Sickness, Postoperative Nausea & Vomiting (PONV) Additional Past Anesthesia/Blood Transfusion Reaction / Comment(s): Mother had PONV Past Psychological History: Anxiety Smoking Status: Current every day smoker Past Alcohol Use History: None Reported Past Drug Use History: Marijuana - Past Family History Mother Family Medical History: Cancer Additional Family Medical History / Comment(s): lung cancer 2006 Father Family Medical History: Cancer Additional Family Medical History / Comment(s): skin cancer General Exam Limitations: no limitations General appearance: alert, in no apparent distress Head exam: Present: atraumatic, normocephalic, normal inspection Eye exam: Present: normal appearance, PERRL, EOMI. Absent: scleral icterus, conjunctival injection, periorbital swelling ENT exam: Present: normal exam, mucous membranes moist Neck exam: Present: normal inspection. Absent: tenderness, meningismus, lymphadenopathy Respiratory exam: Present: normal lung sounds bilaterally. Absent: respiratory distress, wheezes, rales, rhonchi, stridor Course Vital Signs 02/05/23 02/05/23 11:54 15:18 Temperature 97.9 F 98.3 F Pulse Rate 92 70 Respiratory 18 18 Rate Blood Pressure 127/88 142/96 O2 Sat by Pulse 95 98 Oximetry Medical Decision Making - Medical Decision Making Was pt. sent in by a medical professional or institution (Dr., PA, DIRECTOR OF LITIGATION, urgent care, hospital, or halfway...) When possible be specific @ -No Did you speak to anyone other than the patient for history (EMS, parent, family, police, friend...)? What history was obtained from this source @ -No Did you review nursing and triage notes (agree or disagree)? Why? @ -I reviewed and agree with nursing and triage notes Were old charts reviewed (outside hosp., previous admission, EMS record, old EKG, old radiological studies, urgent care reports/EKG's, halfway records)? Report findings @ -No old charts were reviewed Differential Diagnosis (chest pain, altered mental status, abdominal pain women, abdominal pain men, vaginal bleeding, weakness, fever, dyspnea, syncope, headache, dizziness, GI bleed, back pain, seizure, CVA, palpatations, mental health, musculoskeletal)? @ -Differential Musculoskeletal Muscular strain, contusion, ligament sprain, fracture, arthritis, septic arthritis, bursitis, cellulitis, muscle spasm, nerve compression, DVT, arterial occlusion, herpes zoster, electrolyte abnormality, tumor.... This is not meant to be in all inclusive list EKG interpreted by me (3pts min.). @ -None X-rays interpreted by me (1pt min.). @ -X-ray right knee obtained that shows no evidence of acute fracture CT interpreted by me (1pt min.). @ -None done U/S interpreted by me (1pt. min.). @ -None done What testing was considered but not performed or refused? (CT, X-rays, U/S, labs)? Why? @ -None What meds were considered but not given or refused? Why? @ -None Did you discuss the management of the patient with other professionals (professionals i.e. DARWIN Badillo, DIRECTOR OF LITIGATION, lab, RT, psych nurse, hospice social worker, machine assembler, teacher, operations officer afloat, shoe caser)? Give summary @ -Management discussed with the Jesus Leon PA-C who came and evaluated the patient in the ED Was smoking cessation discussed for >3mins.? @ -No Was critical care preformed (if so, how long)? @ -No Were there social determinants of health that impacted care today? How? (Homelessness, low income, unemployed, alcoholism, drug addiction, transportation, low edu. Level, literacy, decrease access to med. care, detention, rehab)? @ -No Was there de-escalation of care discussed even if they declined (Discuss DNR or withdrawal of care, Hospice)? DNR status @ -No What co-morbidities impacted this encounter? (DM, HTN, Smoking, COPD, CAD, Cancer, CVA, ARF, Chemo, Hep., AIDS, mental health diagnosis, sleep apnea, morbid obesity)? @ -None Was patient admitted / discharged? Hospital course, mention meds given and route, prescriptions, significant lab abnormalities, going to OR and other pertinent info. @ -Discharged. Patient presented to the emergency department for chief com plaint of right knee pain x2 days. She states that she is evaluated at [facility] yesterday and an x-ray was obtained at that time which she reports as normal. X-ray obtained today shows no evidence of acute fracture. Jesus Leon PA-C with [facility] was contacted and came to the ED to evaluate the patient. He recommends flexeril TID and follow up in the office. Patient stable at time of discharge. Undiagnosed new problem with uncertain prognosis? @ -No Drug Therapy requiring intensive monitoring for toxicity (Heparin, Nitro, Insulin, Cardizem)? @ -No Were any procedures done? @ -No Diagnosis/symptom? @ -right knee pain Acute, or Chronic, or Acute on Chronic? @ -acute Uncomplicated (without systemic symptoms) or Complicated (systemic symptoms)? @ -uncomplicated Side effects of treatment? @ -No Exacerbation, Progression, or Severe Exacerbation? @ -No Poses a threat to life or bodily function? How? (Chest pain, USA, NH, pneumonia, PE, COPD, DKA, ARF, appy, cholecystitis, CVA, Diverticulitis, Homicidal, Suicidal, threat to staff... and all critical care pts) @ -No Disposition Clinical Impression: Right knee pain Disposition: HOME SELF-CARE Condition: Stable Instructions (If sedation given, give patient instructions): Osteoarthritis (ED), Muscle Spasm (ED) Additional Instructions: Take medication as prescribed. Follow up with orthopedics. Return to the emergency department for new or worsening symptoms. Prescriptions: Cyclobenzaprine [Flexeril] 10 mg PO TID PRN #15 tab PRN Reason: Muscle Spasm Ketorolac [Toradol] 10 mg PO Q8HR #15 tab Is patient prescribed a controlled substance at d/c from ED?: No Referrals: Juwan Arreola, PEYMAN [Primary Care Provider] - 1-2 days
[2023-02-05 15:26] VITALS: BP 142/96; PULSE 70; TEMP 98.3
== END 2023-02-05 15:20 | disposition home or self-care (01) ==
LOC: EC 11:04
DX: M25.561 Pain in right knee (principal); K21.9 Gastro-esophageal reflux disease without esophagitis; E78.5 Hyperlipidemia, unspecified; I10 Essential (primary) hypertension; E07.9 Disorder of thyroid, unspecified; F41.9 Anxiety disorder, unspecified; F17.200 Nicotine dependence, unspecified, uncomplicated; F12.90 Cannabis use, unspecified, uncomplicated; Z79.82 Long term (current) use of aspirin; Z79.890 Hormone replacement therapy; Z79.899 Other long term (current) drug therapy; Z91.041 Radiographic dye allergy status; Z91.013 Allergy to seafood; Z88.6 Allergy status to analgesic agent; Z88.8 Allergy status to other drugs, medicaments and biological substances; Z88.5 Allergy status to narcotic agent; Z90.49 Acquired absence of other specified parts of digestive tract
CPT/HCPCS: 73562; 99283; 96372; J1885

== ENCOUNTER → 2023-04-01 | Outpatient (CLI) | payer OTHER | END | disposition home or self-care (01) | LOC: LABPAT 15:17 | PROVIDERS: ATTEND Orthopaedic Surgery | DX: Z01.812 Encounter for preprocedural laboratory examination (principal); Z22.322 Carrier or suspected carrier of Methicillin resistant Staphylococcus aureus; M17.11 Unilateral primary osteoarthritis, right knee | CPT/HCPCS: 87070 ==

== ENCOUNTER → 2023-06-16 | Outpatient (CLI) | payer OTHER ==
[2023-06-16 18:18] LABS: Basophils # (A) 0.06 X 10*3/uL (0.00-0.10); Basophils % (A) 0.6 %; Eosinophils # (A) 0.28 X 10*3/uL (0.04-0.35); Eosinophils % (A) 2.6 %; HCT 40.7 % (37.2-46.3); HGB 13.5 g/dL (12.0-15.0); Lymphocytes # (A) 2.95 X 10*3/uL (0.90-5.00); Lymphocytes % (A) 27.1 %; MCH 30.5 pg (27.0-32.0); MCHC 33.2 g/dL (32.0-37.0); MCV 92.1 FL (80.0-97.0); Mean Platelet Volume 9.2 FL (9.5-12.2); Monocytes # (A) 0.85 X 10*3/uL (0.20-1.00); Monocytes % (A) 7.8 %; NRBC Per 100 WBC 0 X 10*3/uL (0.00-0.01); Neutrophils # (A) 6.69 X 10*3/uL (1.80-7.70); Neutrophils % (A) 61.4 %; Platelet Count 418 X 10*3/uL (140-440); RBC 4.42 X 10*6/uL (4.10-5.20); RDW 12.9 % (11.5-14.5); WBC 10.88 X 10*3/uL (4.50-10.00)
[2023-06-16 18:34] LABS: INR 0.93 sec (0.93-1.11); Prothrombin Time 10.1 sec (9.9-11.9)
[2023-06-16 18:41] LABS: BUN/Creat Ratio 12.38 Ratio (12.00-20.00); Blood Urea Nitrogen 9.9 mg/dL (9.0-27.0); Calcium 9.8 mg/dL (8.7-10.3); Carbon Dioxide 24.7 mmol/L (21.6-31.8); Chloride 102 mmol/L (96-109); Glucose 109 mg/dL (70-110); Potassium 3.6 mmol/L (3.5-5.5); Sodium 140 mmol/L (135-145)
== END | disposition home or self-care (01) ==
LOC: LABPAT 15:25
PROVIDERS: ATTEND Orthopaedic Surgery
DX: Z01.812 Encounter for preprocedural laboratory examination (principal); Z22.322 Carrier or suspected carrier of Methicillin resistant Staphylococcus aureus; M17.11 Unilateral primary osteoarthritis, right knee
CPT/HCPCS: 36415; 80048; 85025; 85610; 87070

== ENCOUNTER 2023-06-29 11:01 | Observation (INO) | payer MEDICARE, OTHER ==
--- NOTE | 2023-06-29 07:27 | HP ---
HISTORY AND PHYSICAL SURGERY: 06/29/2023 Padmini Noble is a 52-year-old patient, seen with symptomatic right knee osteoarthritis, which had failed reasonable conservative treatment measures. After options were discussed, she elected to proceed with right total knee arthroplasty. Consent was obtained. Medical clearance was provided by DARWIN Morales PAST MEDICAL HISTORY: Hyperlipidemia, hypertension, hypothyroidism. SURGICAL HISTORY: Cholecystectomy, knee arthroscopy bilateral. DAILY MEDICATIONS: Protonix, levothyroxine, Norvasc, atorvastatin, Toradol. ALLERGIES: IVP dyes and steroid. SOCIAL HISTORY: She smokes cigarettes. PHYSICAL EVALUATION OF THE LEFT SHOULDER: Range of motion, 0 to 125 degrees. Lateral joint line tenderness. Crepitance along the medial and lateral patellofemoral compartments with range of motion. Genu valgum deformity. Ligaments appear stable. Hip rotation is without pain. Distal neurovascular exam is intact. RADIOGRAPHS: Right knee reveal severe osteoarthritic changes. IMPRESSION: 1. Right knee osteoarthritis. 2. Hypertension. 3. Hyperlipidemia. PLAN: Right total knee arthroplasty. MMODL / IJN: [id number] /
[~2023-06-29 11:01] MED LIST changes: -DEXAMETHASONE SOD PHOSPHATE 4 MG/ML 1 ML VIAL IV ONE; -LACTATED RINGERS 1,000 ML IV SCH; -ONDANSETRON 4 MG/2 ML VIAL IVP ONE; +TRANEXAMIC 1,000 MG/100ML-NACL 1,000 MG in SALINE 1 100ML.BAG IVPB PRN
[2023-06-29] MEDS: LACTATED RINGERS 1,000 ML IV SCH ×2 (11:15→16:21)
[2023-06-29] MEDS: ACETAMINOPHEN TAB 500 MG TAB PO PRN (11:20)
[2023-06-29] MEDS: MELOXICAM 7.5 MG TAB PO PRN (11:20)
[2023-06-29] MEDS: SCOPOLAMINE 1 MG/72 HR PATCH TRANSDERM ONE (11:39)
[2023-06-29] MEDS: ONDANSETRON 4 MG/2 ML VIAL IVP ONE (11:39)
[2023-06-29] MEDS: MIDAZOLAM 2 MG/2 ML VIAL IVP ONE (11:39)
[2023-06-29] MEDS: DEXAMETHASONE SOD PHOSPHATE 4 MG/ML 1 ML VIAL IV ONE (11:39)
[2023-06-29] MEDS ORDERED: ePHEDrine 50 MG/ML 1 ML VIAL ONE (12:06)
[2023-06-29] MEDS ORDERED: TRANEXAMIC 1,000 MG/100ML-NACL PREMIX BAG ONE (12:06)
[2023-06-29] MEDS ORDERED: ROPIVACAINE 5 MG/ML 30 ML VIAL ONE (12:06)
[2023-06-29] MEDS ORDERED: SODIUM CHLORIDE 0.9% (PF) 10 ML VIAL ONE (12:06)
[2023-06-29] MEDS ORDERED: MIDAZOLAM 2 MG/2 ML VIAL ONE (12:06)
[2023-06-29] MEDS ORDERED: fentaNYL (PF) 50 MCG/ML 2 ML AMP ONE (12:06)
[2023-06-29] MEDS ORDERED: PHENYLEPHRINE 10 MG/ML VIAL ONE (12:06)
[2023-06-29] MEDS ORDERED: PROPOFOL 10 MG/ML 20 ML VIAL IV ONE (12:06)
[2023-06-29] MEDS: LACTATED RINGERS 1,000 ML IV ONE (12:45)
--- NOTE | 2023-06-29 12:46 | P.ANPRN ---
Procedure Note - Anesthesia - Nerve Block Performed Right Adductor Canal Infusion Time Out Performed: Yes (1138) Date of Procedure: 06/29/23 Procedure Start Time: 11:38 Procedure Stop Time: 11:52 Location of Patient: PreOp Indication: Acute Post-Operative Pain, Requested by Surgeon Sedation Type: Sedate with meaningful contact maintained Preparation: Sterile Prep, Sterile Dressing Position: Supine Catheter: Indwelling Needle Types: Pajunk Needle Gauge: 18 Ultrasound used to visualize needle placement: Yes Ultrasound used to observe medication spread: Yes Injectate: 0.5% Ropivacaine (see comment for volume) (10 ML of 0.5% ropivacaine mixed with 10 ML of preservative-free normal saline) Blood Aspirated: No Pain Paresthesia on Injection Noted: No Resistance on Injection: Normal Image Stored and Saved: Yes Events: Uneventful and Well Tolerated
--- NOTE | 2023-06-29 12:47 | P.ANPRN ---
Procedure Note - Anesthesia - Nerve Block Performed Right iPack Single Time Out Performed: Yes (1138) Date of Procedure: 06/29/23 Procedure Start Time: 11:38 Procedure Stop Time: 11:52 Location of Patient: PreOp Indication: Acute Post-Operative Pain, Requested by Surgeon Sedation Type: Sedate with meaningful contact maintained Preparation: Sterile Prep, Sterile Dressing Position: Supine Catheter: None Needle Types: Pajunk Needle Gauge: 21 Ultrasound used to visualize needle placement: Yes Ultrasound used to observe medication spread: Yes Injectate: 0.5% Ropivacaine (see comment for volume) (10 ML of 0.5% ropivacaine mixed with 10 ML of preservative-free normal saline) Blood Aspirated: No Pain Paresthesia on Injection Noted: No Resistance on Injection: Normal Image Stored and Saved: Yes Events: Uneventful and Well Tolerated
[2023-06-29] MEDS: ceFAZolin 1,000 MG in SODIUM CHLORIDE 0.9% 1,000 ML IRRIGATION ONE (13:01)
[2023-06-29] MEDS ORDERED: HYDROcodone/APAP 5-325MG 1 EACH TAB PO PRN (13:43)
[2023-06-29] MEDS ORDERED: NALOXONE 0.4 MG/ML 1 ML VIAL IV PRN (13:43)
[2023-06-29] MEDS ORDERED: HYDROmorphone 0.5 MG/0.5 ML SYRINGE IVP PRN (13:43)
--- NOTE | 2023-06-29 13:43 | P.OP ---
Date of Procedure: 06/29/23 Preoperative Diagnosis: Right knee osteoarthritis Postoperative Diagnosis: Right knee osteoarthritis Procedure(s) Performed: Right total knee arthroplasty Implants: 1. DePuy attune size 4 right narrow cruciate retaining cemented femur 2. DePuy attune size 3 fixed-bearing cemented tibial baseplate 3. DePuy attune size 4 fixed-bearing cruciate retaining 6 mm polyethylene tibial insert 4. DePuy attune 35 mm all polyethylene cemented patella Anesthesia: regional (Adductor canal catheter, iPAQ block), spinal Surgeon: Jerrod Jarvis Superintendent Meters #1: Ismael Leon Estimated Blood Loss (ml): 40 Pathology: none sent Condition: stable Disposition: PACU Indications for Procedure: 52-year-old patient seen with symptomatic right knee osteoarthritis. After having treatment options discussed, she elected to proceed with total knee arthroplasty. Operative Findings: See description of procedure Description of Procedure: Patient was taken to the operative suite after having an adductor canal catheter placed by the department of anesthesia. Patient underwent a spinal anesthetic by the department of anesthesia. Patient was given preoperative IV intake antibiotics and TXA. A well-padded tourniquet was placed about the right lower extremity. The lower extremity was then prepped and draped in the normal sterile orthopedic fashion. The extremity was elevated, a tourniquet was insufflated to 300. A standard anterior incision was made sharply through skin. Dissection was taken down through the subcutaneous soft tissues down to the extensor mechanism. A medial arthrotomy was performed, patella was everted and knee was flexed. There was advanced osteoarthritis noted. I introduced my distal intramedullary femoral drill. I then introduced the distal femoral cutting jig. Jesus GRANADOS secured the cutting jig with 2 pins. I held retractors in position while Jesus GRANADOS performed the distal femoral resection through the guide area we now removed her distal femoral cutting guide. We now placed our 4-in-1 femoral cutting block and positioned and it was secured with 2 pins by Jesus GRANADOS while I held the block in position. The distal femoral finishing was now completed. A proximal tibial cutting guide was positioned. I held the guide in the appropriate position with both hands well Jesus GRANADOS inserted stabilizing pins into the guide. Proximal tibial cut was made. We now placed a trial femoral component into position, along with an appropriate size tibial tray and insert. We now took the knee through range of motion and had full extension good flexion and good overall soft tissue balance noted. The patella was everted and stabilized with 2 towel clips held by Jesus GRANADOS while I performed a flush with patellar quad tendon utilizing a fresh sawblade. We templated the patella, appropriate drill holes were made. An appropriate trial patella was positioned, knee was taken through full range of motion with the patella tracking very nicely. The trial patella was removed. Drill holes were made through the femoral component. All trial components were removed after marking off the appropriate rotation of the tibia. Retractors were now positioned along the proximal tibia. An appropriate keel punch was made with the appropriate size tibial guide by myself on Jesus GRANADOS assisted by holding retractors. At this point appropriate size implants were chosen and opened. The joint was irrigated copiously with pulse lavage mechanical irrigation. The wound was irrigated with pulse lavage mechanical irrigation. W e mixed antibiotic methylmethacrylate. We placed the knee into flexion. We placed multiple retractors assisted by Jesus GRANADOS to expose the proximal tibia. Once the methyl methacrylate was ready, the tibial component was cemented into place removing any excess methylmethacrylate form by both myself and Jesus GRANADOS. The femoral component was cemented into place removing the removing any excess methylmethacrylate performed by both myself and Jesus GRANADOS. We then inserted the appropriate size polyethylene tibial insert. We made sure that it was locked into position. We took the knee into full extension, and then back in a flexion making sure we had removed any excess methylmethacrylate. The patellar component was then cemented down and secured with clamp. Excess methylmethacrylate removed. We kept the knee in full extension, patellar clamp in position until methylmethacrylate had hardened. Once it had hardened the patellar clamp was removed. The knee was taken through full range of motion. The patella tracked nicely. There was good soft tissue balancing. The tourniquet was now released. Additional hemostasis was achieved via electrocautery. A second gram of TXA was given. The wound again was irrigated with pulse lavage mechanical irrigation. The extensor mechanism was repaired with Ethibond suture. We checked the repair with range of motion and it was stable. The subcutaneous soft tissues were repaired with Vicryl in layers. The skin was approximated with pernio/Dermabond. Sterile dressings were applied followed by loose web roll and Yoseph bandage. The patient was transferred to a bed, and taken to recovery in stable and satisfactory condition. Jesus GRANADOS assisted with this complex procedure.
[2023-06-29] MEDS: ROPIVACAINE 0.75% 1,100 MG, SODIUM CHLORIDE 0.9% 500 ML 403 ML, EMPTY PAIN BALL 1 EACH MISCELLANE PRN (14:29)
--- NOTE | 2023-06-29 14:33 | XR ---
EXAMINATION TYPE: XR knee limited RT DATE OF EXAM: 06/29/2023 COMPARISON: 02/05/2023 HISTORY: Postop replacement TECHNIQUE: 2 view right knee FINDINGS: Tibial and femoral components have been placed. No acute fracture or dislocations are evide nt. Postsurgical soft tissue changes are present. IMPRESSION: 1. No acute fractures post right knee replacement
[2023-06-29] MEDS: HYDROcodone/APAP 7.5-325MG 1 EACH TAB PO PRN (18:24)
[2023-06-29] MEDS: SENNOSIDES-DOCUSATE SODIUM 1 EACH TAB PO SCH (20:23)
--- NOTE | 2023-06-30 01:02 | P.CONS ---
History of Present Illness - Reason for Consult Consult date: 06/29/23 - History of Present Illness Patient is a 52-year-old female with a PMH of hypothyroidism, hypertension, asthma, hyperlipidemia who was admitted for scheduled right total knee replacement. The patient states earlier today and was seen postoperatively on the surgical unit. She reported excellent control of her pain, rated at a 0 out of 10 at the time of interview. She has gotten out of bed and has passed urine multiple times. Denies experiencing chest discomfort,'s shortness of breath, fever, chills, cough, nausea, vomiting, abdominal pain, diarrhea. Reports compliance with her home medications. Review of systems: Pertinent positives and negatives as discussed in HPI, a complete review of systems was performed and all other systems are negative. Physical examination: Vital signs reviewed General: non toxic, no distress, appears at stated age, normal weight Derm: no unusual rashes/lesions, warm Head: atraumatic, normocephalic, symmetric Eyes: EOMI, no lid lag, anicteric sclera, pupils equal round reactive to light ENT: Nose and ears atraumatic Neck: No cervical lymphadenopathy, trachea midline, supple Mouth: no lip lesion, mucus membranes moist Cardiovascular: S1S2 reg, no murmur, positive dorsalis pedis pulse bilateral, no edema Lungs: CTA bilateral, no rhonchi, no rales, no accessory muscle use Abdominal: soft, nontender to palpation, no guarding Ext: muscle strength 5 out of 5 in all 4 extremities grossly except right proximal lower extremity due to pain postsurgically, right knee dressing in place, no gross muscle atrophy, no contractures, Neuro: CN II-XI grossly intact, no gross focal neuro deficits Psych: Alert, oriented, appropriate affect Assessment: Status post right total knee replacement Chronic conditions: Hypothyroidism, hypertension, asthma, hyperlipidemia Plan: Continue with home medications: Synthroid, Norvasc, albuterol, Lipitor, Lopressor Defer management of pain control and DVT prophylaxis to the primary surgery service We appreciate this opportunity to be involved in this patient's care. We will follow the patient with you. For any further questions, please not hesitate to contact the sound inpatient team. 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 Arrythmia. greta. 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 History of Any Multi-Drug Resistant Organisms: None Reported Past Surgical History: Cholecystectomy, Orthopedic Surgery Additional Past Surgical History / Comment(s): greta arthroscopies Past Anesthesia/Blood Transfusion Reactions: Family History of Problems w/ Anesthesia, Motion Sickness, Postoperative Nausea & Vomiting (PONV) Additional Past Anesthesia/Blood Transfusion Reaction / Comm: Mother had PONV Smoking Status: Current every day smoker - Past Family History Mother Family Medical History: Cancer Additional Family Medical History / Comment(s): lung cancer 2006 Father Family Medical History: Cancer Additional Family Medical History / Comment(s): skin cancer Medications and Allergies Home Medications Medication Instructions Recorded Confirmed Type Pantoprazole Sodium [Protonix] 40 mg PO BID 12/30/16 06/29/23 History Metoprolol Tartrate [Lopressor] 25 mg PO HS 08/29/20 06/29/23 History [id number] 2 tab PO Q4HR PRN 09/23/20 06/29/23 History [Excedrin] Atorvastatin [Lipitor] 20 mg PO HS 01/15/21 06/29/23 History Escitalopram [Lexapro] 10 mg PO HS 10/29/21 06/29/23 History Levothyroxine Sodium 25 mcg PO QAM 11/26/21 06/29/23 History amLODIPine [Norvasc] 5 mg PO QAM 11/26/21 06/29/23 History HYDROcodone/APAP 5-325MG [[place] 1 tab PO Q6HR PRN #12 tab 01/29/23 06/29/23 Rx 5-325] Cyclobenzaprine [Flexeril] 10 mg PO TID PRN #15 tab 02/05/23 06/29/23 Rx Ketorolac [Toradol] 10 mg PO Q8HR PRN 04/08/23 06/29/23 History Albuterol Sulfate/Budesonide 1 puff INHALATION DIRECTED PRN 06/25/23 06/29/23 History [Airsupra 90-80 Mcg Inhaler] Dextroamphetamine/Amphetamine 15 mg PO BID 06/25/23 06/29/23 History [Adderall] Allergies Allergy/AdvReac Type Severity Reaction Status Date / Time Iodinated Contrast Media Allergy Anaphylaxis Verified 06/29/23 11:11 [Iodinated Contrast Media - IV Dye] shellfish derived [Shellfish] Allergy Anaphylaxis Verified 06/29/23 11:11 hydrocodone AdvReac Itching Verified 06/29/23 11:11 steroids AdvReac Rapid Uncoded 06/29/23 11:11 Heart Rate Physical Exam Vitals: Vital Signs Temp Pulse Resp BP Pulse Ox 06/29/23 20:01 98.1 F 72 18 92/58 96 06/29/23 18:17 98.0 F 70 17 102/64 94 L 06/29/23 18:16 98.0 F 70 17 102/64 94 L 06/29/23 18:06 96/52 06/29/23 17:59 60 14 109/62 97 06/29/23 17:00 60 16 88/53 97 06/29/23 16:30 63 16 89/53 97 06/29/23 16:15 58 L 16 96/54 99 06/29/23 16:00 66 16 86/54 97 06/29/23 15:30 61 16 100/58 97 06/29/23 15:15 54 L 16 100/55 98 06/29/23 15:00 55 L 16 103/55 99 06/29/23 14:45 52 L 16 97/54 97 06/29/23 14:30 56 L 16 114/57 96 06/29/23 14:15 67 16 105/59 95 06/29/23 14:00 96.8 F L 72 16 100/60 92 L 06/29/23 12:00 72 16 128/62 97 06/29/23 11:25 97.0 F L 73 16 131/73 97 Intake and Output 06/29/23 06/29/23 06/30/23 14:59 22:59 06:59 Intake Total 2050 1000 Output Total 40 100 Balance 2010 900 Intake: IV 2050 1000 Output: Urine 100 Estimated Blood Loss 40 Other: Weight 60.7 kg 60.7 kg
[2023-06-30] MEDS: oxyCODONE-APAP 5-325MG 1 EACH TAB PO PRN (01:21)
[2023-06-30] MEDS: SODIUM CHLORIDE 0.9% 500 ML 500 ML IV ONE (02:35)
[2023-06-30] MEDS: ENOXAPARIN 30 MG/0.3 ML SYRINGE SQ SCH (04:58)
[2023-06-30] MEDS: HYDROmorphone 1 MG/ML 1 ML SYRINGE IVP PRN (08:42)
[2023-06-30] MEDS: PANTOPRAZOLE 40 MG TABLET PO SCH (08:43)
[2023-06-30] MEDS: LEVOTHYROXINE 25 MCG TAB PO SCH (08:43)
[2023-06-30] MEDS: MULTIVITAMINS, THERA 1 EACH TAB PO SCH (08:43)
--- NOTE | 2023-06-30 08:56 | P.PN ---
Subjective Progress Note Date: 06/30/23 Principal diagnosis: Status post right total knee arthroplasty Patient evaluated at bedside today, she is resting in her hospital bed. She does notice some increase in pain compared to yesterday. She states that the [place] does cause some itching, I was contacted by nursing staff regarding this last night. We did change her to Percocet 5 mg / 325 mg. She is eager to work with physical therapy. She has been urinating with no issues. She denies headaches, lightheadedness, chest pain or shortness of breath Objective - Vital Signs Vital signs: Vital Signs Temp 98.1 F 06/30/23 06:55 Pulse 57 L 06/30/23 06:55 Resp 18 06/30/23 06:55 BP 96/60 06/30/23 06:55 Pulse Ox 94 L 06/30/23 06:55 FiO2 Intake & Output 06/29/23 06/30/23 06/30/23 18:59 06:59 18:59 Intake Total 3051 Output Total 140 Balance 2911 Weight 60.7 kg Intake: IV 3051 Output: Urine 100 Estimated Blood Loss 40 Other: # Voids 3 - Exam Right lower extremity: Incision is clean, dry, and intact. The exofin fusion tape is in good condition. There is minimal soft tissue swelling and ecchymosis surrounding the medial and lateral aspects of the incision. Calf is soft, no tenderness with palpation. Plantar flexion, dorsiflexion, EHL, FHL are intact. Sensory exam to light touch throughout the extremity is intact, dorsal pedis pulses 2+. Assessment and Plan Assessment: Postoperative day #1 status post right total knee arthroplasty Plan: Pain control, continue Percocet 5 mg / 325 mg. Will continue to utilize stool softeners also DVT prophylaxis, continue subcu medication during hospital stay, plan for aspirin 81 mg twice daily for 30 days Wound care instructions discussed, this to include On-Q pain catheter, bandage instructions and showering instructions Icing and elevating techniques discussed Home PT/OT after discharge Encourage incentive spirometer Medical recommendations appreciated Discharge planning: Pending how patient does with therapy, hopeful discharge to home today Time with Patient: Less than 30
[2023-06-30 09:04] LABS: Basophils % (A) 0 %; Eosinophils % (A) 0 %; HCT 33.1 % (34.0-46.0); HGB 10.8 gm/dL (11.4-16.0); Lymphocytes # (A) 2.3 k/uL (1.0-4.8); Lymphocytes % (A) 17 %; MCH 30.6 pg (25.0-35.0); MCHC 32.7 g/dL (31.0-37.0); MCV 93.7 fL (80.0-100.0); Mean Platelet Volume 7.1; Monocytes # (A) 1.1 k/uL (0-1.0); Monocytes % (A) 8 %; Neutrophils # (A) 9.9 k/uL (1.3-7.7); Neutrophils % (A) 73 %; Platelet Count 299 k/uL (150-450); RBC 3.53 m/uL (3.80-5.40); RDW 13.1 % (11.5-15.5); WBC 13.5 k/uL (3.8-10.6)
--- NOTE | 2023-06-30 09:52 | P.PN ---
Progress Note - Text Progress Note Date: 06/30/23 patient was seen and evaluated at bedside. Status post postoperative day 1 for Right total knee arthroplasty patient had adductor canal catheter for postop pain control. Patient rated pain at rest 4-5 out of 10 in severity. Patient describes pain is aching, throbbing type on the sides of the knee and back of the knee. Patient started walking with support. With activity patient pain levels are 6-7 out of 10 in severity. With the help of oral pain medications pain levels are tolerable. Patient denied any weakness/ numbness in lower extremities. patient denied any fever, pain over the catheter site. Physical exam: Patient vital signs stable Patient is alert awake oriented 3 responding to all questions appropriately Examination of the catheter site showed dressing intact, no leaking fluid around the catheter, no redness, no tenderness over the catheter insertion area. plan: status post postoperative day 1 for right total knee arthroplasty with adductor canal catheter for pain control. Patient was discussed to continue the medication at the rate of 8 mL per hour until the pump is completely empty and instructed the patient how to discontinue the catheter.
--- NOTE | 2023-06-30 13:17 | P.PN ---
Subjective Progress Note Date: 06/30/23 Patient is a 52-year-old female with a PMH of hypothyroidism, hypertension, asthma, hyperlipidemia who was admitted for scheduled right total knee replacement. She underwent surgery with Dr. Jarvis on 06/29. [facility] Phys[facility] consulted for medical management of this patient. 06/30 Patient was seen and examined. SBP in the 90s. CBC WBC 13.5 Hg 10.8 Hct 33.1. Vital signs reviewed General: Nontoxic, no distress, appears at stated age Cardiovascular: Good distal perfusion in all 4 extremities Lungs: No accessory muscle use Ext: No gross muscle atrophy, no edema b/l lower extremities, no contractures Neuro: no focal neuro deficits Psych: Alert, oriented, appropriate affect Based on my assessment of this patient, this patient meets a moderate complexity level of care. Patient has an acute diagnosis of hypotension status post R knee replacement that poses a threat to life or bodily function. Acute blood loss anemia, expected result of surgery Leukocytosis: No signs of active infection. Likely reactive. Monitor. Hypotension: Asymptomatic. Advised to hold Metoprolol and Amlodipine. Recheck BP and re-start if BP becomes normotensive. Asthma: Not in acute exacerbation. Hypothyroidism: Synthroid 25 mcg PO QD. Dyslipidemia: Lipitor 20 mg PO QHS. CODE STATUS: FULL CODE DVT Prophylaxis: Lovenox. GI Prophylaxis: Protonix. Designated medical POA if patient is not able to make medical decisions for themselves: I have reviewed the following procurement consultant notes: Orthopedic Sx note. I have reviewed the results of the following tests: CBC I have ordered the following tests: I have discussed the care of this patient with the following independent historian: I have independently interpreted the following test below: I have discussed the management of this patient with the following physician: Objective - Vital Signs Vital signs: Vital Signs Temp 98.1 F 06/30/23 06:55 Pulse 57 L 06/30/23 06:55 Resp 18 06/30/23 06:55 BP 96/60 06/30/23 06:55 Pulse Ox 94 L 06/30/23 06:55 FiO2 Intake & Output 06/29/23 06/30/23 06/30/23 18:59 06:59 18:59 Intake Total 3051 Output Total 140 Balance 2911 Weight 60.7 kg Intake: IV 3051 Output: Urine 100 Estimated Blood Loss 40 Other: # Voids 3 - Labs CBC & Chem 7: 06/30/23 07:40
[2023-06-30] MEDS: ESCITALOPRAM 10 MG TAB PO SCH (20:57)
[2023-06-30] MEDS: ATORVASTATIN 20 MG TAB PO SCH (20:57)
[2023-06-30] MEDS: diphenhydrAMINE 25 MG CAP PO STA (21:33)
[2023-07-01] MEDS: ONDANSETRON 4 MG/2 ML VIAL IVP PRN (05:28)
[2023-07-01] MEDS: HYDROmorphone 0.5 MG/0.5 ML SYRINGE IVP PRN (08:49)
--- NOTE | 2023-07-01 09:42 | P.PN ---
Subjective Progress Note Date: 07/01/23 Principal diagnosis: Status post right total knee arthroplasty Patient evaluated at bedside today, she is resting in her hospital bed. Patient continues to struggle with pain control. The combination of the Percocet and Dilaudid did cause some drop in blood pressure. Discussed with patient today we need to discontinue the IV pain medication, we will hold off on Percocet also. I will continue to utilize the oral [place], I did add oral Benadryl for the itching adverse reaction. Also did add Flexeril 5 mg twice daily for muscle spasms. She has been urinating with no issues. She denies headaches, lightheadedness, chest pain or shortness of breath Objective - Vital Signs Vital signs: Vital Signs Temp 98.9 F 07/01/23 07:01 Pulse 80 07/01/23 07:01 Resp 20 07/01/23 07:01 BP 96/59 07/01/23 07:01 Pulse Ox 90 L 07/01/23 07:01 FiO2 Intake & Output 06/30/23 07/01/23 07/01/23 18:59 06:59 18:59 Other: Voiding Method Toilet # Voids 1 1 - Exam Right lower extremity: Incision is clean, dry, and intact. The exofin fusion tape is in good condition. There is minimal soft tissue swelling and ecchymosis surrounding the medial and lateral aspects of the incision. Calf is soft, no tenderness with palpation. Plantar flexion, dorsiflexion, EHL, FHL are intact. Sensory exam to light touch throughout the extremity is intact, dorsal pedis pulses 2+. - Labs CBC & Chem 7: 06/30/23 07:40 Assessment and Plan Assessment: Postoperative day #2 status post right total knee arthroplasty Plan: Pain control, [place] 7.5 mg / 325 mg. Benadryl is on board for itching adverse effect, also able to use Flexeril 5 mg twice daily as needed DVT prophylaxis, continue subcu medication during hospital stay, plan for aspir in 81 mg twice daily for 30 days Wound care instructions discussed, this to include On-Q pain catheter, bandage instructions and showering instructions Icing and elevating techniques discussed Home PT/OT after discharge Encourage incentive spirometer Medical recommendations appreciated Discharge planning: Will continue to work on pain control, hopeful discharge to home with home health care on 07/02/2023 Time with Patient: Less than 30
[2023-07-01] MEDS: ACETAMINOPHEN TAB 500 MG TAB PO PRN (10:43)
[2023-07-01] MEDS: CYCLOBENZAPRINE 5 MG TAB PO PRN (10:43)
[2023-07-01] MEDS: diphenhydrAMINE 25 MG CAP PO PRN (10:48)
--- NOTE | 2023-07-01 14:02 | P.PN ---
Subjective Progress Note Date: 07/01/23 Patient is a 52-year-old female with a PMH of hypothyroidism, hypertension, asthma, hyperlipidemia who was admitted for scheduled right total knee replacement. She underwent surgery with Dr. Jarvis on 06/29. [facility] Physicians consulted for medical management of this patient. 06/30 Patient was seen and examined. SBP in the 90s. CBC WBC 13.5 Hg 10.8 Hct 33.1. 07/01 Patient was seen and examined. Reports 10/10 pain in her right knee. Urinating freely. Passing gas. Still getting IV narcotics for pain control. Vital signs reviewed General: Nontoxic, no distress, appears at stated age Cardiovascular: Good distal perfusion in all 4 extremities Lungs: No accessory muscle use Ext: No gross muscle atrophy, no edema b/l lower extremities, no contractures Neuro: no focal neuro deficits Psych: Alert, oriented, appropriate affect Based on my assessment of this patient, this patient meets a moderate complexity level of care. Patient has an acute diagnosis of hypotension status post R knee replacement that poses a threat to life or bodily function. Acute blood loss anemia, expected result of surgery Leukocytosis: No signs of active infection. Likely reactive. Monitor. Hypotension: Asymptomatic. Advised to hold Metoprolol and Amlodipine. Recheck BP and re-start if BP becomes normotensive. Asthma: Not in acute exacerbation. Hypothyroidism: Synthroid 25 mcg PO QD. Dyslipidemia: Lipitor 20 mg PO QHS. CODE STATUS: FULL CODE DVT Prophylaxis: Lovenox. GI Prophylaxis: Protonix. Designated medical POA if patient is not able to make medical decisions for themselves: I have reviewed the following datapower consultant notes: Orthopedic Sx note. I have reviewed the results of the following tests: I have ordered the following tests: I have discussed the care of this patient with the following independent historian: I have independently interpreted the following test below: I have discussed the management of this patient with the following physician: Objective - Vital Signs Vital signs: Vital Signs Temp 98.9 F 07/01/23 07:01 Pulse 80 07/01/23 07:01 Resp 20 07/01/23 07:01 BP 96/59 07/01/23 07:01 Pulse Ox 97 07/01/23 13:42 FiO2 Intake & Output 06/30/23 07/01/23 07/01/23 18:59 06:59 18:59 Other: Voiding Method Toilet # Voids 1 1 - Labs CBC & Chem 7: 06/30/23 07:40
[2023-07-02 08:19] VITALS: BP 161/58; PULSE 68; RESP 15; TEMP 98.6
[2023-07-02 08:50] LABS: Basophils # (A) 0.06 X 10*3/uL (0.00-0.10); Basophils % (A) 0.6 %; Eosinophils # (A) 0.31 X 10*3/uL (0.04-0.35); Eosinophils % (A) 3.3 %; HCT 25.9 % (37.2-46.3); HGB 8.4 g/dL (12.0-15.0); Lymphocytes # (A) 2.18 X 10*3/uL (0.90-5.00); MCH 30.3 pg (27.0-32.0); MCHC 32.4 g/dL (32.0-37.0); MCV 93.5 FL (80.0-97.0); Mean Platelet Volume 9.3 FL (9.5-12.2); Monocytes # (A) 1.04 X 10*3/uL (0.20-1.00); NRBC Per 100 WBC 0 X 10*3/uL (0.00-0.01); Neutrophils # (A) 5.83 X 10*3/uL (1.80-7.70); Neutrophils % (A) 61.7 %; Platelet Count 268 X 10*3/uL (140-440); RBC 2.77 X 10*6/uL (4.10-5.20); RDW 13.2 % (11.5-14.5); WBC 9.46 X 10*3/uL (4.50-10.00)
--- NOTE | 2023-07-02 10:08 | P.PN ---
Subjective Progress Note Date: 07/02/23 Principal diagnosis: Status post right total knee arthroplasty Patient evaluated at bedside today, she is resting in her hospital bed. Patient seems more comfortable today on current pain regimen. She has been up and ambulating more often with the use of the walker. She has been urinating with no issues. She denies headaches, lightheadedness, chest pain or shortness of breath Objective - Vital Signs Vital signs: Vital Signs Temp 98.6 F 07/02/23 07:53 Pulse 68 07/02/23 07:53 Resp 15 07/02/23 07:53 BP 161/58 07/02/23 07:53 Pulse Ox 90 L 07/02/23 07:53 FiO2 Intake & Output 07/01/23 07/02/23 07/02/23 18:59 06:59 18:59 Other: # Voids 3 3 - Exam Right lower extremity: Incision is clean, dry, and intact. The exofin fusion tape is in good condition. There is minimal soft tissue swelling and ecchymosis surrounding the medial and lateral aspects of the incision. Calf is soft, no tenderness with palpation. Plantar flexion, dorsiflexion, EHL, FHL are intact. Sensory exam to light touch throughout the extremity is intact, dorsal pedis pulses 2+. - Labs CBC & Chem 7: 07/02/23 04:43 Labs: Abnormal Lab Results - Last 24 Hours (Table) 07/02/23 Range/Units 04:43 RBC 2.77 L (4.10-5.20) X 10*6/uL Hgb 8.4 L (12.0-15.0) g/dL Hct 25.9 L (37.2-46.3) % MPV 9.3 L (9.5-12.2) FL Monocytes # 1.04 H (0.20-1.00) X 10*3/uL Assessment and Plan Assessment: Postoperative day #3 status post right total knee arthroplasty Plan: Pain control, plan for discharge with [place] 7.5 mg / 325 mg, oral Benadryl and Flexeril 5 mg DVT prophylaxis, aspirin 81 mg twice daily for 30 days Wound care instructions discussed, DC On-Q pain catheter today prior to dischar ge. Icing and elevating techniques discussed Home PT/OT after discharge Encourage incentive spirometer Medical recommendations appreciated Discharge planning: Plan for discharge home today with home health care Time with Patient: Less than 30
--- NOTE | 2023-07-02 10:12 | P.DS ---
Providers Date of admission: 06/29/2023 Expected date of discharge: 07/02/23 Attending physician: Jerrod Jarvis Consults: 06/29/23 13:43 Consult Physician Routine Consulting Provider: Lisa Kathleen Consult Reason/Comments: Medical management Do you want consulting provider notified?: Yes Primary care physician: Nino Jean Hospital Course: Date of admission: 06/29/2023 Date of discharge: 07/02/2023 Admission diagnosis: Status post right total knee arthroplasty Discharge diagnosis: Same Attending physician: Dr. Jarvis Surgical procedures: Right total knee arthroplasty Brief history: Patient is a 52-year-old female with a history of progressive primary right knee osteoarthritis. At this point patient has failed conservative treatment measures and has opted to proceed with a elective right total knee arthroplasty. Hospital course: Details of patient's surgery can be found in operative report. Patient tolerated the procedure well and was subsequently transported to orthopedic floor. Patient's orthopeidc and medical care was provided daily. Patient had daily laboratory tests performed for evaluation of overall blood counts. Patient had daily physical therapy to include strengthening range of motion as well as education with walker ambulation. Patient was treated with Lovenox for their postoperative DVT prophylaxis during their inpatient stay. Michael hernández was noted to have a relatively uneventful postoperative course. Patient reported satisfactory pain control with oral pain medications by postoperative day 1. Patient showed satisfactory progress with physical therapy. Patient moved steadily through the program and had no difficulty meeting the goals by postoperative day 3. Given patient's otherwise satisfactory course and having met physical therapy goals, plan is to discharge patient home on postoperative day 3. Discharge condition/disposition: Patient will be discharged home in stable condition. Discharge medications: Instructions are given on resumption of patient's normal daily medications per primary care recommendation, in addition patient will be prescribed Nazareth 7.5 mg / 325 mg, Benadryl 25 mg, Flexeril 5 mg, senna S, a spirin 81 mg. Discharge instructions: 1. Wound care and infection precautions, keep incision dry and covered while showering, no lotions, creams, moisturizers. No soaking, tubs, pools, hottubs. Do not scrub over the incision. 2. Weight-bear as tolerated with walker / cane until follow-up. 3. Ice and elevate when necessary. Do not exceed 20 minutes per hour with ice pack. 4. Utilize compression sleeve until seen at first follow up appointment. 5. Visiting nursing care. 6. Home physical therapy including home CPM. 7. Pain meds and anticoagulants per prescription. 8. Pain medication has potential to cause constipation. Increase oral fluid and fiber intake. Contact primary care provider if you have not had a bowel movement within 48 hours after discharge 9. No anti-inflammatory medication until discussed at first post operative visit, this including Motrin, Aleve, Mobic, Diclofenac 10. Follow up in office at 2 weeks postop with Jesus Leon PA-C/Tashi Duffy 11. Follow up with your primary care doctor 7-10 days after discharge. 12. Contact [facility] with any questions, . Procedures: Right total knee arthroplasty Patient Condition at Discharge: Good Plan - Discharge Summary Discharge Rx Participant: Yes New Discharge Prescriptions: New Aspirin [Adult Low Dose Aspirin EC] 81 mg PO BID #60 tab Sennosides/Docusate Sodium [Senna-S 8.6-50 mg Tablet] 2 each PO DAILY PRN #30 tablet PRN Reason: Constipation diphenhydrAMINE [Benadryl] 25 mg PO BID PRN #30 capsule PRN Reason: Itching Cyclobenzaprine [Flexeril] 5 mg PO BID PRN #30 tablet PRN Reason: Muscle Spasm HYDROcodone/APAP 7.5-325MG [Nazareth 7.5] 1 each PO Q6HR PRN #28 tab PRN Reason: Pain Continue Pantoprazole Sodium [Protonix] 40 mg PO BID Metoprolol Tartrate [Lopressor] 25 mg PO HS [id number] [Excedrin] 2 tab PO Q4HR PRN PRN Reason: Headache Atorvastatin [Lipitor] 20 mg PO HS Levothyroxine Sodium 25 mcg PO QAM Ketorolac [Toradol] 10 mg PO Q8HR PRN PRN Reason: Pain Dextroamphetamine/Amphetamine [Adderall] 15 mg PO BID Albuterol Sulfate/Budesonide [Airsupra 90-80 Mcg Inhaler] 1 puff INHALATION DIRECTED PRN PRN Reason: Shortness Of Breath Escitalopram [Lexapro] 10 mg PO HS amLODIPine [Norvasc] 5 mg PO QAM Discontinued Cyclobenzaprine [Flexeril] 10 mg PO TID PRN #15 tab PRN Reason: Muscle Spasm HYDROcodone/APAP 5-325MG [Nazareth 5-325] 1 tab PO Q6HR PRN #12 tab PRN Reason: Pain Discharge Medication List Pantoprazole Sodium [Protonix] 40 mg PO BID 12/30/16 [History] Metoprolol Tartrate [Lopressor] 25 mg PO HS 08/29/20 [History] [id number] [Excedrin] 2 tab PO Q4HR PRN 09/23/20 [History] Atorvastatin [Lipitor] 20 mg PO HS 01/15/21 [History] Escitalopram [Lexapro] 10 mg PO HS 10/29/21 [History] Levothyroxine Sodium 25 mcg PO QAM 11/26/21 [History] amLODIPine [Norvasc] 5 mg PO QAM 11/26/21 [History] Ketorolac [Toradol] 10 mg PO Q8HR PRN 04/08/23 [History] Albuterol Sulfate/Budesonide [Airsupra 90-80 Mcg Inhaler] 1 puff INHALATION DIRECTED PRN 06/25/23 [History] Dextroamphetamine/Amphetamine [Adderall] 15 mg PO BID 06/25/23 [History] Aspirin [Adult Low Dose Aspirin EC] 81 mg PO BID #60 tab 07/02/23 [Rx] Cyclobenzaprine [Flexeril] 5 mg PO BID PRN #30 tablet 07/02/23 [Rx] HYDROcodone/APAP 7.5-325MG [Nazareth 7.5] 1 each PO Q6HR PRN #28 tab 07/02/23 [Rx] Sennosides/Docusate Sodium [Senna-S 8.6-50 mg Tablet] 2 each PO DAILY PRN #30 tablet 07/02/23 [Rx] diphenhydrAMINE [Benadryl] 25 mg PO BID PRN #30 capsule 07/02/23 [Rx] Follow up Appointment(s)/Referral(s): [place] [facility] [NON-STAFF] - 1-2 Days (*Please call [facility] once home to arrange delivery of the Continuous Passive Motion (CPM) machine. ) Nino Jean MD [Primary Care Provider] - 1 Week Ismael Leon PAC [PHYSICIAN LUMBER CHECKER] - 07/14/23 8:50 am [facility], [NON-STAFF] - 1-2 Days ([facility] will call you to schedule your in home nursing and physical therapy visits. ) Patient Instructions/Handouts: Knee Replacement (DC), Knee Replacement (GEN) Activity/Diet/Wound Care/Special Instructions: Orthopedic Discharge Instructions: 1. Wound care and infection precautions, keep incision dry and covered while showering, no lotions, creams, moisturizers. No soaking, pools, hot tubs. Do not scrub over incision. 2. Weight-bear as tolerated with walker / cane until follow-up. 3. Ice and elevate when necessary. Do not exceed 20 minutes per hour with ice pack. 4. Utilize compression sleeve until seen at first follow up appointment. 5. Pain meds and anticoagulants per prescription. 6. Pain medication has potential to cause constipation. Increase oral fluid and fiber intake. Contact primary care provider if you have not had a bowel movement within 48 hours after discharge. 7. No anti-inflammatory medication until discussed at first post operative vis it, this including Motrin, Aleve, Mobic, Diclofenac. 8. Follow up in office at 2 weeks postop with Jesus Leon PA-C / Tashi Thurman PA-C 9. Follow up with your primary care doctor 7-10 days after discharge. 10. Contact [facility] with any questions, . Keep incision clean, dry, intact. While showering, cover silver foam dressing with Saran wrap. Keep silver foam dressing on for 7 days. It is okay to remove silver foam dressing beginning 07/06/2023. It is okay to shower directly over incision once dressing is removed. Discharge Disposition: HOME WITH HOME HEALTH SERVICES
[2023-07-02] MEDS: amLODIPine 5 MG TAB PO SCH (10:40)
--- NOTE | 2023-07-02 12:24 | P.PN ---
Subjective Progress Note Date: 07/02/23 Patient is a 52-year-old female with a PMH of hypothyroidism, hypertension, asthma, hyperlipidemia who was admitted for scheduled right total knee replacement. She underwent surgery with Dr. Jarvis on 06/29. [facility] consulted for medical management of this patient. 06/30 Patient was seen and examined. SBP in the 90s. CBC WBC 13.5 Hg 10.8 Hct 33.1. 07/01 Patient was seen and examined. Reports 10/10 pain in her right knee. Urinating freely. Passing gas. Still getting IV narcotics for pain control. Patient was seen and examined. Pain way better controlled. SBP this morning in the 160s. We will restart Amlodipine and Metoprolol. CBC Hg 8.4 Hct 25.9. Plans for discharge home today. Vital signs reviewed General: Nontoxic, no distress, appears at stated age Cardiovascular: Good distal perfusion in all 4 extremities Lungs: No accessory muscle use Ext: No gross muscle atrophy, no edema b/l lower extremities, no contractures Neuro: no focal neuro deficits Psych: Alert, oriented, appropriate affect Based on my assessment of this patient, this patient meets a moderate complexity level of care. Patient has an acute diagnosis of hypotension status post R knee replacement that poses a threat to life or bodily function. Acute blood loss anemia, expected result of surgery: Advised to recheck CBC with PCP within 3 days of discharge. Leukocytosis: No signs of active infection. Likely reactive. Monitor. Hypertension: Metoprolol 25 mg PO QHS and Amlodipine 5 mg PO QD. Asthma: Not in acute exacerbation. Hypothyroidism: Synthroid 25 mcg PO QD. Dyslipidemia: Lipitor 20 mg PO QHS. Resolved: Hypotension Medically stable for discharge. Med rec completed. CODE STATUS: FULL CODE DVT Prophylaxis: Lovenox. GI Prophylaxis: Protonix. Designated medical POA if patient is not able to make medical decisions for themselves: I have reviewed the following oracle ebs consultant notes: Orthopedic Sx note. I have reviewed the results of the following tests: CBC. I have ordered the following tests: I have discussed the care of this patient with the following independent historian: I have independently interpreted the following test below: I have discussed the management of this patient with the following physician: Objective - Vital Signs Vital signs: Vital Signs Temp 98.6 F 07/02/23 07:53 Pulse 68 07/02/23 07:53 Resp 15 07/02/23 07:53 BP 161/58 07/02/23 07:53 Pulse Ox 90 L 07/02/23 07:53 FiO2 Intake & Output 07/01/23 07/02/23 07/02/23 18:59 06:59 18:59 Other: # Voids 3 3 - Labs CBC & Chem 7: 07/02/23 04:43 Labs: Abnormal Lab Results - Last 24 Hours (Table) 07/02/23 Range/Units 04:43 RBC 2.77 L (4.10-5.20) X 10*6/uL Hgb 8.4 L (12.0-15.0) g/dL Hct 25.9 L (37.2-46.3) % MPV 9.3 L (9.5-12.2) FL Monocytes # 1.04 H (0.20-1.00) X 10*3/uL
[2023-07-02] MEDS ORDERED: NON FORMULARY DRUG (Dextroamphetamine/Amphetamine [Adderall] 15 MG Tablet) PO SCH (17:30)
[2023-07-02] MEDS ORDERED: METOPROLOL TARTRATE 25 MG TAB PO SCH (21:00)
== END 2023-07-02 12:05 | disposition home health service (06) ==
LOC: OR 11:01 → 4SSUR 11:02 → OR 11:02 → 4SSUR 14:00
PROVIDERS: ADMIT Orthopaedic Surgery; ATTEND Orthopaedic Surgery
DX: M17.11 Unilateral primary osteoarthritis, right knee (principal); G89.18 Other acute postprocedural pain; D62 Acute posthemorrhagic anemia; D72.829 Elevated white blood cell count, unspecified; I95.9 Hypotension, unspecified; E03.9 Hypothyroidism, unspecified; I10 Essential (primary) hypertension; E78.5 Hyperlipidemia, unspecified; J45.909 Unspecified asthma, uncomplicated; K21.9 Gastro-esophageal reflux disease without esophagitis; G62.9 Polyneuropathy, unspecified; F17.210 Nicotine dependence, cigarettes, uncomplicated; Z79.890 Hormone replacement therapy; Z79.899 Other long term (current) drug therapy; Z88.5 Allergy status to narcotic agent
CPT/HCPCS: 96376 ×2; 96361 ×2; 96365; 96366 ×2; 96372 ×3; 96375 ×2; 97116 ×2; 97162; 64999; 64448; 85025 ×2; 73560; 27447; G0378 ×4; C1776; C1713 ×2; C1751; J2250; J1100; J0690 ×3; J2405 ×2; J1650 ×3; J1170 ×3; J2795

== ENCOUNTER 2023-07-13 14:32 | Emergency (ER) | payer MEDICARE, OTHER ==
[2023-07-13 15:34] LABS: Basophils # (A) 0.1 k/uL (0-0.2); Basophils % (A) 1 %; Eosinophils # (A) 0.3 k/uL (0-0.7); Eosinophils % (A) 3 %; HCT 36.5 % (34.0-46.0); HGB 12.3 gm/dL (11.4-16.0); Lymphocytes # (A) 2.3 k/uL (1.0-4.8); Lymphocytes % (A) 21 %; MCH 31.4 pg (25.0-35.0); MCHC 33.6 g/dL (31.0-37.0); MCV 93.2 fL (80.0-100.0); Mean Platelet Volume 6.3; Monocytes # (A) 0.9 k/uL (0-1.0); Monocytes % (A) 9 %; Neutrophils % (A) 65 %; RBC 3.91 m/uL (3.80-5.40); RDW 13.7 % (11.5-15.5); WBC 10.7 k/uL (3.8-10.6)
[2023-07-13 15:36] LABS: Platelet Count 698 k/uL (150-450)
[2023-07-13 15:38] LABS: ALT 52 U/L (4-34); AST 44 U/L (14-36); African American GFR (CKD) >90 (>60 ml/min/1.73 sqM); Albumin 4.3 g/dL (3.5-5.0); Alkaline Phosphatase 216 U/L (38-126); Anion Gap 9 mmol/L; Blood Urea Nitrogen 19 mg/dL (7-17); Calcium 9.9 mg/dL (8.4-10.2); Carbon Dioxide 27 mmol/L (22-30); Chloride 102 mmol/L (98-107); Glucose 110 mg/dL (74-99); Non-African American GFR(CKD) >90 (>60 ml/min/1.73 sqM); Potassium 4.4 mmol/L (3.5-5.1); Sodium 138 mmol/L (137-145); Total Bilirubin 1.7 mg/dL (0.2-1.3); Total Protein 7.3 g/dL (6.3-8.2)
[2023-07-13] MEDS: SODIUM CHLORIDE 0.9% 1,000 ML IV STA (15:40)
[2023-07-13 15:47] LABS: NT-Pro-B-Type Natriuretic Pept <20 pg/mL
[2023-07-13 15:49] LABS: INR 0.9 (<1.2); Partial Thromboplastin Time 26.3 sec (22.0-30.0); Prothrombin Time 10.1 sec (10.0-12.5)
--- NOTE | 2023-07-13 15:59 | ED ---
General Adult HPI - General Source: patient, RN notes reviewed, old records reviewed Mode of arrival: wheelchair Limitations: no limitations <Scooby Scott - Last Filed: 07/13/23 15:59> <Lonnie Nayak - Last Filed: 07/13/23 22:09> - General Chief complaint: Shortness of Breath Stated complaint: SOB, Chest Pain Time Seen by Provider: 07/13/23 15:01 - History of Present Illness Initial comments: Is a 52-year-old female who presents emergency department complaining of shortness of breath. Worse with sitting and movement. Had a recent right knee replacement 2 weeks ago. Intermittent chest tightness which she currently does not have. Patient also has right calf and right knee pain. Denies any fevers or chills. Denies any abdominal pain but does endorse intermittent nausea. Presents for further evaluation at this time. No history of blood clots. Does have a chronic tobacco history however states she does not feel wheezy at this time. Presents for further evaluation. (Scooby Scott) - Related Data Home Medications Medication Instructions Recorded Confirmed Pantoprazole Sodium [Protonix] 40 mg PO BID 12/30/16 07/13/23 Metoprolol Tartrate [Lopressor] 25 mg PO HS 08/29/20 07/13/23 [id number] 2 tab PO Q4HR PRN 09/23/20 07/13/23 [Excedrin] Atorvastatin [Lipitor] 20 mg PO HS 01/15/21 07/13/23 Escitalopram [Lexapro] 10 mg PO HS 10/29/21 07/13/23 amLODIPine [Norvasc] 5 mg PO DAILY 11/26/21 07/13/23 Ketorolac [Toradol] 10 mg PO Q8HR PRN 04/08/23 07/13/23 Albuterol Sulfate/Budesonide 2 puff INHALATION RT-Q4H PRN 06/25/23 07/13/23 [Airsupra 90-80 Mcg Inhaler] Dextroamphetamine/Amphetamine 15 mg PO BID PRN 06/25/23 07/13/23 [Adderall] HYDROcodone/APAP 7.5-325MG [[place] 1 tab PO Q6HR PRN 07/13/23 07/13/23 7.5] Levothyroxine Sodium [Synthroid] 25 mcg PO DAILY 07/13/23 07/13/23 Sennosides/Docusate Sodium 2 tab PO DAILY PRN 07/13/23 07/13/23 [Senna-S 8.6-50 mg Tablet] Previous Rx's Medication Instructions Recorded Aspirin [Adult Low Dose Aspirin EC] 81 mg PO BID #60 tab 07/02/23 Cyclobenzaprine [Flexeril] 5 mg PO BID PRN #30 tablet 07/02/23 diphenhydrAMINE [Benadryl] 25 mg PO BID PRN #30 capsule 07/02/23 Allergies Allergy/AdvReac Type Severity Reaction Status Date / Time Iodinated Contrast Media Allergy Anaphylaxis Verified 07/13/23 17:26 [Iodinated Contrast Media - IV Dye] shellfish derived [Shellfish] Allergy Anaphylaxis Verified 07/13/23 17:26 hydrocodone AdvReac Itching Verified 07/13/23 17:26 steroids AdvReac Rapid Uncoded 06/29/23 11:11 Heart Rate Review of Systems ROS Other: All systems not noted in ROS Statement are negative. <Scooby Scott - Last Filed: 07/13/23 15:59> ROS Other: All systems not noted in ROS Statement are negative. <Lonnie Nayak - Last Filed: 07/13/23 22:09> ROS Statement: Those systems with pertinent positive or pertinent negative responses have been documented in the HPI. Review of Systems: CONST: Denies fever EYES: Denies blurry vision ENT: Denies nasal congestion C/V: Denies Chest pain RESP: Endorses dyspnea GI: Denies abdominal pain : Denies dysuria SKIN: Denies rash. 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 Arrythmia. greta. 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 History of Any Multi-Drug Resistant Organisms: None Reported Past Surgical History: Cholecystectomy, Joint Replacement, Orthopedic Surgery Additional Past Surgical History / Comment(s): greta arthroscopies Past Anesthesia/Blood Transfusion Reactions: Family History of Problems w/ Anesthesia, Motion Sickness, Postoperative Nausea & Vomiting (PONV) Additional Past Anesthesia/Blood Transfusion Reaction / Comment(s): Mother had PONV Past Psychological History: Anxiety Smoking Status: Current every day smoker - Past Family History Mother Family Medical History: Cancer Additional Family Medical History / Comment(s): lung cancer 2006 Father Family Medical History: Cancer Additional Family Medical History / Comment(s): skin cancer <Scooby Scott - Last Filed: 07/13/23 15:59> General Exam Limitations: no limitations <Scooby Scott - Last Filed: 07/13/23 15:59> - General Exam Comments Initial Comments: General: Appears in no acute distress. HEAD: Normal with no signs of head trauma. EYES: PERRLA, EOMI, conjunctiva normal, no discharge. ENT: Hearing grossly intact, normal oropharynx. RESPIRATORY: Clear breath sounds bilaterally. No wheezes, rales, or rhonchi. C/V: Regular rate and rhythm. S1 and S2 auscultated, no obvious significant edema, peripheral pulses 2+ and intact throughout ABD: Abd is soft, nontender, nondistended EXT: Tenderness to palpation around the right knee as well as posterior right calf. No obvious edema. SKIN: No rashes or lesions observed on exposed skin. NEURO: Alert and oriented x 4. (Scooby Scott) Course Vital Signs 07/13/23 07/13/23 07/13/23 14:38 15:00 15:06 Temperature 98.2 F Pulse Rate 86 Respiratory 16 20 Rate Blood Pressure 129/84 127/88 O2 Sat by Pulse 98 97 Oximetry 07/13/23 07/13/23 07/13/23 16:00 17:00 18:00 Temperature Pulse Rate 67 75 63 Respiratory Rate Blood Pressure 116/76 121/76 129/85 O2 Sat by Pulse 98 97 95 Oximetry 07/13/23 07/13/23 07/13/23 18:16 19:30 21:48 Temperature 97.7 F Pulse Rate 68 62 Respiratory 18 17 Rate Blood Pressure 116/82 120/73 O2 Sat by Pulse 97 97 Oximetry Medical Decision Making - Lab Data Result diagrams: 07/13/23 15:08 07/13/23 15:08 - EKG Data -: EKG Interpreted by Me <Scooby Scott - Last Filed: 07/13/23 15:59> - Lab Data Result diagrams: 07/13/23 15:08 07/13/23 15:08 <Lonnie Nayak D - Last Filed: 07/13/23 22:09> - Medical Decision Making Was pt. sent in by a medical professional or institution (, PA, MEDICAL RESIDENT, urgent care, hospital, or long term...) When possible be specific @ -No Did you speak to anyone other than the patient for history (EMS, parent, family, police, friend...)? What history was obtained from this source @ -No Did you review nursing and triage notes (agree or disagree)? Why? @ -I reviewed and agree with nursing and triage notes Were old charts reviewed (outside hosp., previous admission, EMS record, old EKG, old radiological studies, urgent care reports/EKG's, long term records)? Report findings @ -Old charts reviewed Differential Diagnosis (chest pain, altered mental status, abdominal pain women, abdominal pain men, vaginal bleeding, weakness, fever, dyspnea, syncope, headache, dizziness, GI bleed, back pain, seizure, CVA, palpatations, mental health, musculoskeletal)? @ -Differential Dyspnea: Coronary syndrome, arrhythmia, tamponade, asthma, COPD, pulmonary embolism, pneumonia, pneumothorax, pulmonary effusion, anaphylaxis, diabetic ketoacidosis, flailed chest, pulmonary contusion, diaphragmatic rupture, anemia, neuromuscular, this is not meant to be an all-inclusive list. EKG interpreted by me (3pts min.). @ -As above X-rays interpreted by me (1pt min.). @ -Pending CT interpreted by me (1pt min.). @ -None done U/S interpreted by me (1pt. min.). @ -None done What testing was considered but not performed or refused? (CT, X-rays, U/S, labs)? Why? @ -None What meds were considered but not given or refused? Why? @ -None Did you discuss the management of the patient with other professionals (professionals i.e. , DARWIN, MEDICAL RESIDENT, lab, RT, psych nurse, psychosocial rehabilitation counselor, coffee grower, teacher, operations officer, bottle caser)? Give summary @ -No Was smoking cessation discussed for >3mins.? @ -No Was critical care preformed (if so, how long)? @ -No Were there social determinants of health that impacted care today? How? (Homelessness, low income, unemployed, alcoholism, drug addiction, t ransportation, low edu. Level, literacy, decrease access to med. care, snf, rehab)? @ -No Was there de-escalation of care discussed even if they declined (Discuss DNR or withdrawal of care, Hospice)? DNR status @ -No What co-morbidities impacted this encounter? (DM, HTN, Smoking, COPD, CAD, Cance r, CVA, ARF, Chemo, Hep., AIDS, mental health diagnosis, sleep apnea, morbid obesity)? @ -None Was patient admitted / discharged? Hospital course, mention meds given and route, prescriptions, significant lab abnormalities, going to OR and other pertinent info. @ -Patient presents complaining of right lower calf and knee pain in the setting of recent knee replacement, as well as intermittent dyspnea. Vital signs are within acceptable limits. Patient is currently relatively asymptomatic. Only obvious findings on exam is some calf tenderness on the right as well as knee tenderness. We will obtain cardiopulmonary workup. Discussed CT imaging however patient does have a contrast allergy and has anaphylaxis to it. Therefore we will start with screening D-dimer as well as venous duplex of bilateral lower extremities as well as cardiopulmonary workup. Patient in agreement this plan. EKG showed no signs of acute ischemia. Remainder the patient's workup is still pending at this time. Patient will be signed out to oncoming emergency department physician Dr. Nayak pending results of the workup. Undiagnosed new problem with uncertain prognosis? @ -No Drug Therapy requiring intensive monitoring for toxicity (Heparin, Nitro, Insulin, Cardizem)? @ -No Were any procedures done? @ -No (Scooby Scott) Patient care signed out to me by previous shift physician, Dr. Scott. Briefly, patient is a 52-year-old female presents to the emergency department w ith thoracic symptoms of shortness of breath. She did have knee replacement 2 weeks ago. Plan at signout was to follow-up with pending labs. There is suspicion of deep venous thrombosis with resultant pulmonary embolism. Pending laboratory evaluation is unremarkable. D-dimer obviously is elevated. Ultrasound of bilateral lower extremities are negative for DVT. VQ scan is negative for PE. Serial troponins negative. Patient reevaluated bedside at 10:00 PM. At this point it is not clear what is causing patient's symptoms. Disposition options were discussed with patient she is agreeable for discharge follow-up with her primary care doctor. Return precautions discussed. (Lonnie Nayak) - Lab Data Lab Results 07/13/23 07/13/23 07/13/23 Range/Units 15:08 15:08 15:08 WBC 10.7 H (3.8-10.6) k/uL RBC 3.91 (3.80-5.40) m/uL Hgb 12.3 (11.4-16.0) gm/dL Hct 36.5 (34.0-46.0) % MCV 93.2 (80.0-100.0) fL MCH 31.4 (25.0-35.0) pg MCHC 33.6 (31.0-37.0) g/dL RDW 13.7 (11.5-15.5) % Plt Count 698 H D (150-450) k/uL MPV 6.3 Neutrophils % 65 % Lymphocytes % 21 % Monocytes % 9 % Eosinophils % 3 % Basophils % 1 % Neutrophils # 7.0 (1.3-7.7) k/uL Lymphocytes # 2.3 (1.0-4.8) k/uL Monocytes # 0.9 (0-1.0) k/uL Eosinophils # 0.3 (0-0.7) k/uL Basophils # 0.1 (0-0.2) k/uL PT 10.1 (10.0-12.5) sec INR 0.9 (<1.2) APTT 26.3 (22.0-30.0) sec D-Dimer 3.42 H (<0.60) mg/L FEU Sodium 138 (137-145) mmol/L Potassium 4.4 (3.5-5.1) mmol/L Chloride 102 (98-107) mmol/L Carbon Dioxide 27 (22-30) mmol/L Anion Gap 9 mmol/L BUN 19 H (7-17) mg/dL Creatinine 0.64 (0.52-1.04) mg/dL Est GFR (CKD-EPI)AfAm >90 (>60 ml/min/1.73 sqM) Est GFR (CKD-EPI)NonAf >90 (>60 ml/min/1.73 sqM) Glucose 110 H (74-99) mg/dL Calcium 9.9 (8.4-10.2) mg/dL Total Bilirubin 1.7 H (0.2-1.3) mg/dL AST 44 H (14-36) U/L ALT 52 H (4-34) U/L Alkaline Phosphatase 216 H (38-126) U/L Troponin I (0.000-0.034) ng/mL NT-Pro-B Natriuret Pep <20 pg/mL Total Protein 7.3 (6.3-8.2) g/dL Albumin 4.3 (3.5-5.0) g/dL Influenza Type A (PCR) (Not Detectd) Influenza Type B (PCR) (Not Detectd) RSV (PCR) (Not Detectd) SARS-CoV-2 (PCR) (Not Detectd) 07/13/23 07/13/23 07/13/23 Range/Units 15:08 15:08 21:08 WBC (3.8-10.6) k/uL RBC (3.80-5.40) m/uL Hgb (11.4-16.0) gm/dL Hct (34.0-46.0) % MCV (80.0-100.0) fL MCH (25.0-35.0) pg MCHC (31.0-37.0) g/dL RDW (11.5-15.5) % Plt Count (150-450) k/uL MPV Neutrophils % % Lymphocytes % % Monocytes % % Eosinophils % % Basophils % % Neutrophils # (1.3-7.7) k/uL Lymphocytes # (1.0-4.8) k/uL Monocytes # (0-1.0) k/uL Eosinophils # (0-0.7) k/uL Basophils # (0-0.2) k/uL PT (10.0-12.5) sec INR (<1.2) APTT (22.0-30.0) sec D-Dimer (<0.60) mg/L FEU Sodium (137-145) mmol/L Potassium (3.5-5.1) mmol/L Chloride (98-107) mmol/L Carbon Dioxide (22-30) mmol/L Anion Gap mmol/L BUN (7-17) mg/dL Creatinine (0.52-1.04) mg/dL Est GFR (CKD-EPI)AfAm (>60 ml/min/1.73 sqM) Est GFR (CKD-EPI)NonAf (>60 ml/min/1.73 sqM) Glucose (74-99) mg/dL Calcium (8.4-10.2) mg/dL Total Bilirubin (0.2-1.3) mg/dL AST (14-36) U/L ALT (4-34) U/L Alkaline Phosphatase (38-126) U/L Troponin I <0.012 <0.012 (0.000-0.034) ng/mL NT-Pro-B Natriuret Pep pg/mL Total Protein (6.3-8.2) g/dL Albumin (3.5-5.0) g/dL Influenza Type A (PCR) Not Detected (Not Detectd) Influenza Type B (PCR) Not Detected (Not Detectd) RSV (PCR) Not Detected (Not Detectd) SARS-CoV-2 (PCR) Not Detected (Not Detectd) - EKG Data EKG Comments: 12-lead Electrocardiogram Interpretation Note EKG was reviewed and interpreted by myself. 12-lead ECG performed at 1505 is interpreted by me as revealing normal sinus rhythm at a rate of 73 beats per minute. [place] is normal. AL interval is 153 ms, QRS duration is 91 ms, QTc is 400 ms.. Isolated T wave inversion in lead V2 Appears to be chronic.. There were no ST or T wave abnormalities to suggest myocardial ischemia or injury. R wave progression across the precordium was satisfactory. By my interpretation this EKG is non-diagnostic for acute ischemia. (Scooby Scott) Disposition <Scooby Scott - Last Filed: 07/13/23 15:59> Is patient prescribed a controlled substance at d/c from ED?: No Time of Disposition: 22:09 <Lonnie Nayak - Last Filed: 07/13/23 22:09> Clinical Impression: Dyspnea Disposition: HOME SELF-CARE Condition: Good Instructions (If sedation given, give patient instructions): Dyspnea (ED) Referrals: Nino Jean MD [Primary Care Provider] - 1-2 days
[2023-07-13] MEDS ORDERED: HEPARIN SODIUM 1,000 UN/ML (10ML VL) IV PRN (16:49)
--- NOTE | 2023-07-13 17:02 | XR ---
EXAMINATION TYPE: XR chest 2V DATE OF EXAM: 07/13/2023 COMPARISON: 09/23/2020 HISTORY: 52 year-old female shortness of breath, difficulty breathing TECHNIQUE: AP and lateral views FINDINGS: The cardiomediastinal silhouette, aorta, and pulmonary vasculature are within normal limits. Lungs an d pleural spaces are clear. IMPRESSION: No acute cardiopulmonary process.
--- NOTE | 2023-07-13 17:07 | US ---
EXAMINATION TYPE: US venous doppler duplex LE DATE OF EXAM: 07/13/2023 4:59 PM COMPARISON: NONE CLINICAL INDICATION: Female, 52 years old with history of eval for dvt; elevated d dimer SIDE PERFORMED: Bilateral TECHNIQUE: The lower extremity deep venous system is examined utilizing real time linear array sonog aashish with graded compression, doppler sonography and color-flow sonography. VESSELS IMAGED: Common Femoral Vein Deep Femoral Vein Greater Saphenous Vein * Femoral Vein Popliteal Vein Small Saphenous Vein * Proximal Calf Veins (* superficial vessels) Right Leg: Negative for DVT Left Leg: Negative for DVT IMPRESSION: Grayscale, color doppler, spectral doppler imaging performed of the deep veins of the lo wer extremities. There is normal flow, compressibility, vascular waveforms.
[2023-07-13] MEDS: HEPARIN SODIUM 1,000 UN/ML (10ML VL) IV ONE (17:17)
[2023-07-13] MEDS: HEPARIN SOD,PORK IN 0.45% NACL 25,000 UNIT in 0.45% NACL 1 250ML.BAG IV SCH (17:18)
[2023-07-13 18:25] VITALS: TEMP 97.7
[2023-07-13] MEDS: HYDROcodone/APAP 7.5-325MG 1 EACH TAB PO ONE (20:40)
--- NOTE | 2023-07-13 20:55 | NM ---
EXAMINATION TYPE: NM pul vent and perfuse DATE OF EXAM: 07/13/2023 CLINICAL INDICATION: Female, 52 years old with history of elevated d dimer; Comparisons: Chest radiograph 07/13/2023. TECHNIQUE: Utilizing inhalation of 67.0 mCi Tc 99m DTPA aerosol and intravenous injection of 5.18 mC i of Tc 99m MAA, ventilation and perfusion images are acquired post injection in multiple projections . FINDINGS: Normal radiotracer distribution is noted in the lungs. There is no evidence of mismatched defects. IMPRESSION: No evidence for pulmonary embolus.
[2023-07-13 22:35] VITALS: BP 104/74; PULSE 72; RESP 18
== END 2023-07-13 22:29 | disposition home or self-care (01) ==
LOC: EC 14:32
DX: R06.00 Dyspnea, unspecified (principal); J44.9 Chronic obstructive pulmonary disease, unspecified; E78.5 Hyperlipidemia, unspecified; I10 Essential (primary) hypertension; E07.9 Disorder of thyroid, unspecified; K21.9 Gastro-esophageal reflux disease without esophagitis; F41.9 Anxiety disorder, unspecified; F17.200 Nicotine dependence, unspecified, uncomplicated; Z79.890 Hormone replacement therapy; Z79.899 Other long term (current) drug therapy; Z20.822 Contact with and (suspected) exposure to COVID-19; Z88.5 Allergy status to narcotic agent; Z91.041 Radiographic dye allergy status; Z91.013 Allergy to seafood; Z88.8 Allergy status to other drugs, medicaments and biological substances
CPT/HCPCS: 99285; 96374; 96361 ×5; 36415; 93005; 85379; 83880; 80053; 84484; 85025; 85610; 85730; 87636; 71046; 93970; 78582; A9540; A9567; J1644 ×2

== ENCOUNTER → 2024-03-09 | Outpatient (CLI) | payer MEDICARE ==
[2024-03-10 02:28] LABS: Basophils # (A) 0.08 X 10*3/uL (0.00-0.10); Basophils % (A) 0.8 %; Eosinophils # (A) 0.41 X 10*3/uL (0.04-0.35); Eosinophils % (A) 4.3 %; HCT 42.9 % (37.2-46.3); HGB 14.1 g/dL (12.0-15.0); Lymphocytes # (A) 2.97 X 10*3/uL (0.90-5.00); MCH 30.1 pg (27.0-32.0); MCHC 32.9 g/dL (32.0-37.0); MCV 91.7 FL (80.0-97.0); Mean Platelet Volume 9.2 FL (9.5-12.2); Monocytes # (A) 0.84 X 10*3/uL (0.20-1.00); Monocytes % (A) 8.8 %; NRBC Per 100 WBC 0 X 10*3/uL (0.00-0.01); Neutrophils # (A) 5.24 X 10*3/uL (1.80-7.70); Neutrophils % (A) 54.7 %; Platelet Count 432 X 10*3/uL (140-440); RBC 4.68 X 10*6/uL (4.10-5.20); RDW 13.4 % (11.5-14.5); WBC 9.58 X 10*3/uL (4.50-10.00)
[2024-03-10 03:10] LABS: BUN/Creat Ratio 18.14 Ratio (12.00-20.00); Blood Urea Nitrogen 12.7 mg/dL (9.0-27.0); Calcium 9.6 mg/dL (8.7-10.3); Carbon Dioxide 26.9 mmol/L (21.6-31.8); Chloride 104 mmol/L (96-109); Glucose 80 mg/dL (70-110); Potassium 4.9 mmol/L (3.5-5.5); Sodium 141 mmol/L (135-145)
[2024-03-10 03:22] LABS: INR 0.95 sec (0.93-1.11); Prothrombin Time 10.3 sec (9.9-11.9)
== END | disposition home or self-care (01) ==
LOC: LABPAT 15:45
PROVIDERS: ATTEND Orthopaedic Surgery
DX: Z01.818 Encounter for other preprocedural examination (principal); M17.12 Unilateral primary osteoarthritis, left knee; Z22.322 Carrier or suspected carrier of Methicillin resistant Staphylococcus aureus
CPT/HCPCS: 80048; 85025; 85610; 87070

== ENCOUNTER 2024-05-29 19:50 | Emergency (ER) | payer MEDICARE, OTHER ==
[2024-05-29 20:01] VITALS: RESP 18; TEMP 97.9
--- NOTE | 2024-05-29 20:53 | ED ---
General Adult HPI - General Chief complaint: Urogenital Stated complaint: Blood in urine, right flank pain Time Seen by Provider: 05/29/24 20:05 Source: patient, RN notes reviewed Mode of arrival: ambulatory Limitations: no limitations - History of Present Illness Initial comments: 53-year-old female presents to the emergency department for evaluation of right- sided abdominal pain. Patient reports this started 2 days ago. She states that it is a pain that is constant with intermittent stabbing pains. She admits to blood in her urine. Also admits to nausea without vomiting. Reports normal bowel movements. Prior abdominal surgeries include a cholecystectomy. - Related Data Home Medications Medication Instructions Recorded Confirmed Pantoprazole Sodium [Protonix] 40 mg PO BID 12/30/16 03/15/24 Metoprolol Tartrate [Lopressor] 25 mg PO HS 08/29/20 03/15/24 [id number] 2 tab PO Q4HR PRN 09/23/20 03/15/24 [Excedrin] Atorvastatin [Lipitor] 20 mg PO HS 01/15/21 03/15/24 Escitalopram [Lexapro] 10 mg PO HS 10/29/21 03/15/24 amLODIPine [Norvasc] 5 mg PO HS 11/26/21 03/15/24 Ketorolac [Toradol] 10 mg PO Q8HR PRN 04/08/23 03/15/24 Albuterol Sulfate/Budesonide 2 puff INHALATION RT-Q4H PRN 06/25/23 03/15/24 [Airsupra 90-80 Mcg Inhaler] Dextroamphetamine/Amphetamine 15 mg PO BID 06/25/23 03/15/24 [Adderall] Levothyroxine Sodium [Synthroid] 25 mcg PO DAILY 07/13/23 03/15/24 Previous Rx's Medication Instructions Recorded diphenhydrAMINE [Benadryl] 25 mg PO BID PRN #30 capsule 07/02/23 Allergies Allergy/AdvReac Type Severity Reaction Status Date / Time Iodinated Contrast Media Allergy Anaphylaxis Verified 05/29/24 19:57 [Iodinated Contrast Media - IV Dye] shellfish derived [Shellfish] Allergy Anaphylaxis Verified 05/29/24 19:57 hydrocodone AdvReac Itching Verified 05/29/24 19:57 steroids AdvReac Rapid Uncoded 05/29/24 19:57 Heart Rate Review of Systems ROS Statement: Those systems with pertinent positive or pertinent negative responses have been documented in the HPI. ROS Other: All systems not noted in ROS Statement are negative. 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 Arrythmia. greta. 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, pancreatitis History of Any Multi-Drug Resistant Organisms: None Reported Past Surgical History: Cholecystectomy, Joint Replacement, Orthopedic Surgery Additional Past Surgical History / Comment(s): greta arthroscopies Past Anesthesia/Blood Transfusion Reactions: Family History of Problems w/ Anesthesia, Motion Sickness, Postoperative Nausea & Vomiting (PONV) Additional Past Anesthesia/Blood Transfusion Reaction / Comment(s): Mother had PONV Past Psychological History: Anxiety Smoking Status: Current every day smoker Past Alcohol Use History: None Reported Past Drug Use History: Marijuana - Past Family History Mother Family Medical History: Cancer Additional Family Medical History / Comment(s): lung cancer 2006 Father Family Medical History: Cancer Additional Family Medical History / Comment(s): skin cancer General Exam Limitations: no limitations General appearance: alert, in no apparent distress Head exam: Present: atraumatic, normocephalic, normal inspection Eye exam: Present: normal appearance, PERRL, EOMI. Absent: scleral icterus, con junctival injection, periorbital swelling ENT exam: Present: normal exam, mucous membranes moist Respiratory exam: Present: normal lung sounds bilaterally. Absent: respiratory distress, wheezes, rales, rhonchi, stridor Cardiovascular Exam: Present: regular rate, normal rhythm, normal heart sounds. Absent: systolic murmur, diastolic murmur, rubs, gallop, clicks GI/Abdominal exam: Present: soft, tenderness (Epigastric, right upper quadrant), normal bowel sounds. Absent: distended, guarding, rebound, rigid Extremities exam: Present: normal inspection, full ROM, normal capillary refill. Absent: tenderness, pedal edema, joint swelling, calf tenderness Back exam: Present: normal inspection Neurological exam: Present: alert, oriented X3 Psychiatric exam: Present: normal affect, normal mood Skin exam: Present: warm, dry, intact, normal color. Absent: rash Course Vital Signs 05/29/24 05/29/24 19:58 21:05 Temperature 97.9 F Pulse Rate 59 L 52 L Respiratory 18 18 Rate Blood Pressure 126/77 108/54 O2 Sat by Pulse 100 98 Oximetry Medical Decision Making - Medical Decision Making Was pt. sent in by a medical professional or institution (, [facility], ROAD ENGINEER, urgent care, hospital, or intermediate...) When possible be specific @ -[No] Did you speak to anyone other than the patient for history (EMS, parent, family, police, friend...)? What history was obtained from this source @ -[No] Did you review nursing and triage notes (agree or disagree)? Why? @ -[I reviewed and agree with nursing and triage notes] Were old charts reviewed (outside hosp., previous admission, EMS record, old EKG, old radiological studies, urgent care reports/EKG's, intermediate records)? Report findings @ -[No old charts were reviewed] Differential Diagnosis (chest pain, altered mental status, abdominal pain women, abdominal pain men, vaginal bleeding, weakness, fever, dyspnea, syncope, headache, dizziness, GI bleed, back pain, seizure, CVA, palpatations, mental health, musculoskeletal)? @ -[Differential Abdominal Pain Women: Appendicitis, Cholecystitis, diverticulosis, ischemic bowel, pancreatitis, hepatitis, UTI, gastroenteritis, AAA, incarcerated hernia, bowel obstruction, constipation, inflammatory bowel, hepatitis, peptic ulcer disease, splenic i nfarction, perforated viscus, vulvitis, ovarian torsion, PID, kidney stone, placenta abruption, this is not meant to be an all-inclusive list ] EKG interpreted by me (3pts min.). @ -[none] X-rays interpreted by me (1pt min.). @ -[None done] CT interpreted by me (1pt min.). @ -[None done] U/S interpreted by me (1pt. min.). @ -[None done] What testing was considered but not performed or refused? (CT, X-rays, U/S, labs)? Why? @ -[None] What meds were considered but not given or refused? Why? @ -[None] Did you discuss the management of the patient with other professionals (professionals i.e. , PA, ROAD ENGINEER, lab, RT, psych nurse, social services manager, software quality automation engineer, teacher, college service officer, case reviewer)? Give summary @ -[No] Was smoking cessation discussed for >3mins.? @ -[No] Was critical care preformed (if so, how long)? @ -[No] Were there social determinants of health that impacted care today? How? (Homelessness, low income, unemployed, alcoholism, drug addiction, transportation, low edu. Level, literacy, decrease access to med. care, correction, rehab)? @ -[No] Was there de-escalation of care discussed even if they declined (Discuss DNR or withdrawal of care, Hospice)? DNR status @ -[No] What co-morbidities impacted this encounter? (DM, HTN, Smoking, COPD, CAD, Cancer, CVA, ARF, Chemo, Hep., AIDS, mental health diagnosis, sleep apnea, morbid obesity)? @ -[None] Was patient admitted / discharged? Hospital course, mention meds given and route, prescriptions, significant lab abnormalities, going to OR and other pertinent info. @ -[hospital course] Undiagnosed new problem with uncertain prognosis? @ -[No] Drug Therapy requiring intensive monitoring for toxicity (Heparin, Nitro, Insul in, Cardizem)? @ -[No] Were any procedures done? @ -[No] Diagnosis/symptom? @ -[default] Acute, or Chronic, or Acute on Chronic? @ -[default] Uncomplicated (without systemic symptoms) or Complicated (systemic symptoms)? @ -[default] Side effects of treatment? @ -[No] Exacerbation, Progression, or Severe Exacerbation? @ -[No] Poses a threat to life or bodily function? How? (Chest pain, [place], [place], pneumonia, PE, COPD, DKA, ARF, appy, cholecystitis, CVA, Diverticulitis, Homicidal, Suicidal, threat to staff... and all critical care pts) @ -[No] - Lab Data Result diagrams: 05/29/24 20:50 05/29/24 20:50 Lab Results 05/29/24 05/29/24 05/29/24 Range/Units 20:50 20:50 20:53 WBC 7.6 (3.8-10.6) k/uL RBC 4.23 (3.80-5.40) m/uL Hgb 13.0 (11.4-16.0) gm/dL Hct 38.6 (34.0-46.0) % MCV 91.3 (80.0-100.0) fL MCH 30.9 (25.0-35.0) pg MCHC 33.8 (31.0-37.0) g/dL RDW 13.8 (11.5-15.5) % Plt Count 339 (150-450) k/uL MPV 7.2 Neutrophils % 58 % Lymphocytes % 29 % Monocytes % 8 % Eosinophils % 3 % Basophils % 1 % Neutrophils # 4.4 (1.3-7.7) k/uL Lymphocytes # 2.2 (1.0-4.8) k/uL Monocytes # 0.6 (0-1.0) k/uL Eosinophils # 0.2 (0-0.7) k/uL Basophils # 0.1 (0-0.2) k/uL Sodium 140 (137-145) mmol/L Potassium 4.4 (3.5-5.1) mmol/L Chloride 104 (98-107) mmol/L Carbon Dioxide 31 H (22-30) mmol/L Anion Gap 5 mmol/L BUN 15 (7-17) mg/dL Creatinine 0.81 (0.52-1.04) mg/dL Est GFR (CKD-EPI)AfAm >90 (>60 ml/min/1.73 sqM) Est GFR (CKD-EPI)NonAf 84 (>60 ml/min/1.73 sqM) Glucose 85 (74-99) mg/dL Calcium 9.2 (8.4-10.2) mg/dL Total Bilirubin 1.6 H (0.2-1.3) mg/dL AST 74 H (14-36) U/L ALT 67 H (4-34) U/L Alkaline Phosphatase 125 (38-126) U/L Total Protein 6.3 (6.3-8.2) g/dL Albumin 3.8 (3.5-5.0) g/dL Amylase 61 (30-110) U/L Lipase 93 (23-300) U/L Urine Color Light Red Urine Appearance Cloudy H (Clear) Urine pH 5.5 (5.0-8.0) Ur Specific [place] 1.024 (1.001-1.035) Urine Protein Trace H (Negative) Urine Glucose (UA) Negative (Negative) Urine Ketones Negative (Negative) Urine Blood Large H (Negative) Urine Nitrite Negative (Negative) Urine Bilirubin Negative (Negative) Urine Urobilinogen <2.0 (<2.0) mg/dL Ur Leukocyte Esterase Negative (Negative) Urine RBC >182 H (0-5) /hpf Urine WBC 12 H (0-5) /hpf Ur Squamous Epith Cells 26 H (0-4) /hpf Hyaline Casts 25 H (0-2) /lpf Urine Mucus Moderate H (None) /hpf Urine Yeast (Budding) Occasional H (None) /hpf Disposition Clinical Impression: Abdominal pain, Hematuria Disposition: HOME SELF-CARE Condition: Stable Instructions (If sedation given, give patient instructions): Hematuria (ED) Additional Instructions: Please follow up with your primary care provider. Return to the emergency department for new or worsening symptoms. Is patient prescribed a controlled substance at d/c from ED?: No Referrals: Nino Jean MD [Primary Care Provider] - 1-2 days Bernardino Bhakta MD [STAFF PHYSICIAN] - 1-2 days
[2024-05-29] MEDS: SODIUM CHLORIDE 0.9% 1,000 ML IV STA (20:59)
[2024-05-29] MEDS: KETOROLAC 15 MG/ML 1 ML VIAL IVP STA (20:59)
[2024-05-29] MEDS: ONDANSETRON 4 MG/2 ML VIAL IVP STA (20:59)
[2024-05-29 21:27] LABS: ALT 67 U/L (4-34); AST 74 U/L (14-36); African American GFR (CKD) >90 (>60 ml/min/1.73 sqM); Albumin 3.8 g/dL (3.5-5.0); Alkaline Phosphatase 125 U/L (38-126); Amylase 61 U/L (30-110); Anion Gap 5 mmol/L; Blood Urea Nitrogen 15 mg/dL (7-17); Calcium 9.2 mg/dL (8.4-10.2); Carbon Dioxide 31 mmol/L (22-30); Chloride 104 mmol/L (98-107); Glucose 85 mg/dL (74-99); Lipase 93 U/L (23-300); Non-African American GFR(CKD) 84 (>60 ml/min/1.73 sqM); Potassium 4.4 mmol/L (3.5-5.1); Sodium 140 mmol/L (137-145); Total Bilirubin 1.6 mg/dL (0.2-1.3); Total Protein 6.3 g/dL (6.3-8.2)
[2024-05-29 21:48] LABS: Appearance,Urine Cloudy (Clear); Bilirubin,Urine Negative (Negative); Blood,Urine Large (Negative); Budding Yeast,Urine Occasional /hpf; Color,Urine Light Red; Glucose,Urine (UA) Negative (Negative); Hyaline Casts,Urine 25 /lpf (0-2); Ketones,Urine Negative (Negative); Leukocyte Esterase,Urine Negative (Negative); Mucus,Urine Moderate /hpf; Nitrite,Urine Negative (Negative); PH, Urine 5.5 (5.0-8.0); Protein,Urine Trace (Negative); RBC,Urine >182 /hpf (0-5); Specific Gravity,Urine 1.024 (1.001-1.035); Squamous Epithelial Cell,Urine 26 /hpf (0-4); Urobilinogen,Urine <2.0 mg/dL (<2.0); WBC,Urine 12 /hpf (0-5)
[2024-05-29 21:58] LABS: Basophils # (A) 0.1 k/uL (0-0.2); Basophils % (A) 1 %; Eosinophils # (A) 0.2 k/uL (0-0.7); Eosinophils % (A) 3 %; HCT 38.6 % (34.0-46.0); Lymphocytes # (A) 2.2 k/uL (1.0-4.8); Lymphocytes % (A) 29 %; MCH 30.9 pg (25.0-35.0); MCHC 33.8 g/dL (31.0-37.0); MCV 91.3 fL (80.0-100.0); Mean Platelet Volume 7.2; Monocytes # (A) 0.6 k/uL (0-1.0); Monocytes % (A) 8 %; Neutrophils # (A) 4.4 k/uL (1.3-7.7); Neutrophils % (A) 58 %; Platelet Count 339 k/uL (150-450); RBC 4.23 m/uL (3.80-5.40); RDW 13.8 % (11.5-15.5); WBC 7.6 k/uL (3.8-10.6)
--- NOTE | 2024-05-29 22:09 | CT ---
EXAMINATION TYPE: CT abdomen pelvis wo con DATE OF EXAM: 05/29/2024 9:49 PM COMPARISON: Previous CT abdomen/pelvis 07/17/2021 CLINICAL INDICATION: Female, 53 years old with history of rt abd pain, flank pain; pt arrives to Ed f or c/o nausea, hematuria, and RUQ pain x 2 days TECHNIQUE: Axial CT abdomen pelvis wo con;Sagittal and coronal reformats were created on a separate workstation. Oral contrast used: without Oral Contrast (none if empty) CT DLP: 378.7 mGycm, Automated exposure control for dose reduction was used. FINDINGS: LOWER CHEST: Unremarkable ABDOMEN LIVER: Unremarkable GALLBLADDER AND BILE DUCTS: The gallbladder is surgically absent. PANCREAS: Unremarkable. SPLEEN: Unremarkable. ADRENAL GLANDS: Unremarkable. KIDNEYS AND URETERS: Nonobstructing bilateral renal calculi measuring up to 6 mm in the inferior righ t kidney. No evidence of significant hydronephrosis or hydroureter. PELVIS BLADDER: No evidence for wall thickening or mass given limitations of exam. REPRODUCTIVE: Fibroid uterus with coarse calcifications. ABDOMEN & PELVIS STOMACH AND BOWEL: Stomach and duodenum are unremarkable. Scattered diverticula are noted throughout the colon. No evidence of bowel obstruction. PERITONEUM/RETROPERITONEUM: No evidence of pneumoperitoneum or free fluid. VASCULATURE: No evidence of aortic aneurysm. MUSCULOSKELETAL: No acute osseous abnormalities. Bilateral old rib fracture deformities partially vis ualized. LYMPH NODES: No gross evidence for lymphadenopathy. Nonenlarged retroperitoneal lymph nodes with the largest (negative measuring approximate 9 mm in short axis. SOFT TISSUE/ABDOMINAL WALL: Unremarkable IMPRESSION: 1. No acute abnormality in the abdomen/pelvis. Specifically, no evidence of acute obstructive uropat hy. 2. Bilateral nonobstructing renal catheter line measuring up to 6 mm in the inferior right kidney. 3. Colonic diverticulosis without acute diverticulitis. [facility], , 05/29/2024 10:07 PM
[2024-05-29 23:08] VITALS: BP 94/64; PULSE 59
[2024-05-29] MEDS: ONDANSETRON 4 MG ODT STARTER PACK 2 TAB BTL PO STA (23:08)
[2024-05-29] MEDS: HYDROmorphone 1 MG/ML 1 ML SYRINGE IVP STA (23:09)
[2024-05-29] MEDS: traMADol 50 MG STARTER PACK 3 TAB BTL PO STA (23:09)
== END 2024-05-29 23:27 | disposition home or self-care (01) ==
LOC: EC 19:50
DX: R10.31 Right lower quadrant pain (principal); R31.9 Hematuria, unspecified; F17.200 Nicotine dependence, unspecified, uncomplicated; Z91.041 Radiographic dye allergy status; Z88.5 Allergy status to narcotic agent; Z91.013 Allergy to seafood
CPT/HCPCS: 36415; 80053; 82150; 83690; 85025; 81001; 87086; 74176; 99284; 96374; 96375 ×2; 96361; J2405; J1171; J1885; S0119

== ENCOUNTER → 2024-08-24 | Outpatient (CLI) | payer OTHER ==
[2024-08-24 17:23] LABS: Appearance,Urine Cloudy (Clear); Bilirubin,Urine Negative (Negative); Blood,Urine Small (Negative); Color,Urine Yellow; Glucose,Urine (UA) Negative (Negative); Hyaline Casts,Urine 4 /lpf (0-2); Ketones,Urine Negative (Negative); Leukocyte Esterase,Urine Trace (Negative); Mucus,Urine Few /hpf; Nitrite,Urine Negative (Negative); Protein,Urine Negative (Negative); RBC,Urine 7 /hpf (0-5); Specific Gravity,Urine 1.018 (1.001-1.035); Squamous Epithelial Cell,Urine 12 /hpf (0-4); Urobilinogen,Urine <2.0 mg/dL (<2.0); WBC,Urine 7 /hpf (0-5)
[2024-08-25 01:18] LABS: Basophils % (A) 1.1 %; Eosinophils # (A) 0.27 X 10*3/uL (0.04-0.35); HCT 43.7 % (37.2-46.3); HGB 14.3 g/dL (12.0-15.0); Lymphocytes # (A) 2.79 X 10*3/uL (0.90-5.00); Lymphocytes % (A) 31.1 %; MCH 30.6 pg (27.0-32.0); MCHC 32.7 g/dL (32.0-37.0); MCV 93.6 FL (80.0-97.0); Monocytes # (A) 0.76 X 10*3/uL (0.20-1.00); Monocytes % (A) 8.5 %; NRBC Per 100 WBC 0 X 10*3/uL (0.00-0.01); Neutrophils # (A) 5.01 X 10*3/uL (1.80-7.70); Platelet Count 426 X 10*3/uL (140-440); RBC 4.67 X 10*6/uL (4.10-5.20); RDW 13.2 % (11.5-14.5); WBC 8.96 X 10*3/uL (4.50-10.00)
[2024-08-25 01:41] LABS: BUN/Creat Ratio 13.71 Ratio (12.00-20.00); Blood Urea Nitrogen 9.6 mg/dL (9.0-27.0); Calcium 9.9 mg/dL (8.7-10.3); Carbon Dioxide 25.5 mmol/L (21.6-31.8); Chloride 105 mmol/L (96-109); Glucose 104 mg/dL (70-110); Potassium 4.3 mmol/L (3.5-5.5); Sodium 141 mmol/L (135-145)
== END | disposition home or self-care (01) ==
LOC: LABWHC1 15:46
PROVIDERS: ATTEND Urology
DX: Z00.00 Encounter for general adult medical examination without abnormal findings (principal)
CPT/HCPCS: 36415; 80048; 81001; 85025; 87086

== ENCOUNTER → 2024-08-29 | Outpatient (CLI) | payer MEDICARE ==
--- NOTE | 2024-08-29 21:36 | XR ---
EXAMINATION TYPE: XR KUB DATE OF EXAM: 08/29/2024 3:56 PM COMPARISON: None CLINICAL INDICATION: Female, 53 years old with history of N20.1 CALCULUS OF URETER; PHH, pain TECHNIQUE: One radiographic view of the abdomen was obtained. FINDINGS: A solitary prominent but nondilated small bowel loop left paramedian mid abdomen probably t ransient. Some minimal scattered colonic air is present anterior present distally in the stomach colo n/rectum. Cholecystectomy clips. No dilated small bowel. Possible vague calcifications measuring up to 4 mm in the left mid abdomen. Unable to exclude additio nal calcifications right paramedian mid abdomen measuring up to 6 mm. IMPRESSION: 1. Overall nonobstructive bowel gas pattern. No significant stool burden. 2. There may be underlying bilateral nephrolithiasis measuring up to 4 mm on the left. If any right-s ided renal colic, right-sided renal stones may have passed into the upper right ureter. [facility], , 08/29/2024 9:34 PM
== END | disposition home or self-care (01) ==
LOC: RADXRMAIN 15:24
PROVIDERS: ATTEND Urology
DX: N20.1 Calculus of ureter (principal)
CPT/HCPCS: 74018